=== PATIENT | male | born 1980 | race Two or more races ===

== ENCOUNTER 2020-07-17 12:04 | Outpatient (REF) | payer OTHER, SELFPAY ==
[2020-07-17 13:17] LABS: Estimated Average Glucose 346 mg/dL; Hemoglobin A1c % 13.7 %
[2020-07-17 13:36] LABS: Alanine Aminotransferase 22 U/L (0-40); Albumin Level 4.1 g/dL (3.5-5.0); Alkaline Phosphatase 135 U/L (39-117); Anion Gap 14 (12-20); Aspartate Amino Transferase 20 U/L (5-37); Bilirubin Total 0.9 mg/dL (0.0-1.0); Blood Urea Nitrogen 14 mg/dL (9-16); Calcium 8.1 mg/dL (8.4-10.2); Carbon Dioxide 23 mmol/L (22-29); Chloride 103 mmol/L (96-108); Estimated Glomerular Filt Rate > 60; Glucose Random 256 mg/dL (60-115); Potassium 4.6 mmol/l (3.3-5.1); Sodium 135 mmol/L (135-145); Total Protein 6.3 g/dL (6.5-8.0)
== END 2020-07-17 12:05 | disposition home or self-care (01) ==
LOC: HO.LAB 12:04
PROVIDERS: Visit Provider Internal Medicine
DX: E11.22 Type 2 diabetes mellitus with diabetic chronic kidney disease (principal)
CPT/HCPCS: 80053; 83036

== ENCOUNTER 2020-09-04 11:03 | Outpatient (REF) | payer OTHER, SELFPAY ==
[2020-09-04 11:59] LABS: Alanine Aminotransferase 19 U/L (0-40); Albumin Level 4.2 g/dL (3.5-5.0); Alkaline Phosphatase 92 U/L (39-117); Anion Gap 12 (12-20); Aspartate Amino Transferase 20 U/L (5-37); Bilirubin Total 0.8 mg/dL (0.0-1.0); Blood Urea Nitrogen 10 mg/dL (9-16); Calcium 8.8 mg/dL (8.4-10.2); Carbon Dioxide 26 mmol/L (22-29); Chloride 106 mmol/L (96-108); Estimated Glomerular Filt Rate > 60; Glucose Random 132 mg/dL (60-115); Potassium 4.2 mmol/l (3.3-5.1); Sodium 140 mmol/L (135-145); Total Protein 6.6 g/dL (6.5-8.0)
[2020-09-04 12:02] LABS: Estimated Average Glucose 200 mg/dL; Hemoglobin A1c % 8.6 %
[2020-09-04 12:25] LABS: Free T4 (Free Thyroxine) 0.93 ng/dL (0.71-1.85); Thyroid Stimulating Hormone 1.93 uIU/mL (0.32-4.0)
[2020-09-04 12:26] LABS: Creatinine Urine 179.37 mg/dL; Microalbum/Creatinine Ratio Ur 588.7 ug/mg cr
== END 2020-09-04 11:04 | disposition home or self-care (01) ==
LOC: HO.LAB 11:03
PROVIDERS: PCP Internal Medicine; Visit Provider Internal Medicine
DX: E11.9 Type 2 diabetes mellitus without complications (principal); R63.5 Abnormal weight gain; Z90.5 Acquired absence of kidney
CPT/HCPCS: 80053; 82043; 83036; 84439; 84443

== ENCOUNTER 2020-11-06 12:19 | Outpatient (REF) | payer OTHER, SELFPAY ==
[2020-11-06 14:14] LABS: Alanine Aminotransferase 25 U/L (0-40); Albumin Level 4.3 g/dL (3.5-5.0); Alkaline Phosphatase 99 U/L (39-117); Anion Gap 12 (12-20); Aspartate Amino Transferase 22 U/L (5-37); Bilirubin Total 1.2 mg/dL (0.0-1.0); Blood Urea Nitrogen 13 mg/dL (9-16); Calcium 8.9 mg/dL (8.4-10.2); Carbon Dioxide 26 mmol/L (22-29); Chloride 107 mmol/L (96-108); Cholesterol 201 mg/dL; Estimated Glomerular Filt Rate > 60; Glucose Fasting 76 mg/dL (60-99); HDL Cholesterol 41 mg/dL; LDL Cholesterol Calculated 130 mg/dl; Potassium 4.5 mmol/L (3.3-5.1); Sodium 140 mmol/L (135-145); Total Protein 6.7 g/dL (6.5-8.0); Triglycerides 153 mg/dL
[2020-11-06 14:45] LABS: Estimated Average Glucose 128 mg/dL; Hemoglobin A1c % 6.1 %
== END 2020-11-06 12:20 | disposition home or self-care (01) ==
LOC: HO.LAB 12:19
PROVIDERS: PCP Internal Medicine; Visit Provider Internal Medicine
DX: E11.9 Type 2 diabetes mellitus without complications (principal)
CPT/HCPCS: 36415; 80053; 80061; 83036

== ENCOUNTER 2021-03-16 10:17 | Outpatient (REF) | payer OTHER, SELFPAY ==
--- NOTE | ~2021-03-16 | XR_ITS ---
EXAMINATION: XR FOOT, RIGHT CLINICAL INFORMATION: Right foot pain. Rule out stress fracture COMPARISON: None TECHNIQUE: AP, lateral, and oblique views of the right foot. FINDINGS: No fracture, dislocation, or joint effusion. No periostitis or erosions seen. There is enthesopathy of the distal Achilles tendon attachment. XR/XR foot RT min 3V IMPRESSION: No acute osseous abnormality. No sclerosis or periosteal reaction seen to suggest a site of stress fracture. There is enthesopathy of the distal Achilles tendon attachment.
[2021-03-16 11:03] LABS: MANUAL DIFF FLAG NO
[2021-03-16 11:11] LABS: Basophils Percent Auto 0.5 % (0-2); Eosinophils Absolute Auto 0.6 X10*3/uL (0.0-0.4); Eosinophils Percent Auto 6.2 % (0-4); Hematocrit 47.6 % (42-52); Hemoglobin 16.1 g/dl (14.0-18.0); Imm Gran Abs Auto 0.07 X10*3/uL (0.00-0.03); Imm Gran Pct Auto 0.8 % (0.0-0.4); Lymphocytes Absolute Auto 2.7 X10*3/uL (1.2-4.9); Lymphocytes Percent Auto 30.5 % (20-40); Mean Corpuscular HGB Conc 33.8 g/dl (31.0-36.0); Mean Corpuscular Hemoglobin 29.9 pg (27.0-33.0); Mean Corpuscular Volume 88.5 fL (80-98); Mean Platelet Volume 9.8 fL (9.4-12.4); Monocytes Absolute Auto 0.5 X10*3/uL (0.1-1.2); Platelet Count 246 X10*3/uL (160-400); Red Blood Count 5.38 X10*6/uL (4.60-5.80); Red Cell Distribution Width 13.2 % (11.0-16.0); White Blood Count 8.9 X10*3/uL (4.8-10.8)
[2021-03-16 11:22] LABS: Estimated Average Glucose 160 mg/dL; Hemoglobin A1c % 7.2 %
[2021-03-16 12:09] LABS: Creatinine Urine 168.56 mg/dL
[2021-03-16 12:12] LABS: Alanine Aminotransferase 62 U/L (0-40); Albumin Level 4.2 g/dL (3.5-5.0); Alkaline Phosphatase 129 U/L (39-117); Anion Gap 12 (12-20); Aspartate Amino Transferase 43 U/L (5-37); Bilirubin Total 1.2 mg/dL (0.0-1.0); Blood Urea Nitrogen 14 mg/dL (9-16); Calcium 9.2 mg/dL (8.4-10.2); Carbon Dioxide 25 mmol/L (22-29); Chloride 105 mmol/L (96-108); Estimated Glomerular Filt Rate > 60; Glucose Random 132 mg/dL (60-115); Potassium 4.4 mmol/L (3.3-5.1); Sodium 138 mmol/L (135-145); Total Protein 6.7 g/dL (6.5-8.0)
[2021-03-16 12:16] LABS: Thyroid Stimulating Hormone 1.63 uIU/mL (0.32-4.0)
[2021-03-16 12:22] LABS: Microalbum/Creatinine Ratio Ur 851.9 ug/mg cr
== END 2021-03-16 10:18 | disposition home or self-care (01) ==
LOC: HO.XRAY 10:17
PROVIDERS: PCP Internal Medicine; Visit Provider Internal Medicine
DX: M79.671 Pain in right foot (principal); E11.9 Type 2 diabetes mellitus without complications; R63.5 Abnormal weight gain
CPT/HCPCS: 36415; 73630; 80053; 82043; 83036; 84443; 85025

== ENCOUNTER 2021-03-30 07:28 | Outpatient (REF) | payer OTHER, SELFPAY ==
--- NOTE | ~2021-03-30 | XR_ITS ---
EXAMINATION: XR FOOT, RIGHT CLINICAL INFORMATION: Foot pain. COMPARISON: None TECHNIQUE: AP, lateral, and oblique views of the right foot. FINDINGS: The bones and soft tissues are unremarkable. There is minimal spurring at the insertion of the Achilles tendon on the posterior calcaneus. No fracture. Alignment is anatomic. Joint spaces are maintained. XR/XR foot RT min 3V IMPRESSION: Unremarkable right foot.
== END 2021-03-30 07:29 | disposition home or self-care (01) ==
LOC: HO.HOSX 07:28
PROVIDERS: Visit Provider Physician Assistant
DX: M72.2 Plantar fascial fibromatosis (principal); M79.673 Pain in unspecified foot
CPT/HCPCS: 73630

== ENCOUNTER 2021-06-05 12:17 | Outpatient (REF) | payer OTHER, SELFPAY ==
[2021-06-05 14:11] LABS: Estimated Average Glucose 206 mg/dL; Hemoglobin A1c % 8.8 %
[2021-06-05 14:20] LABS: Anion Gap 14 (12-20); Blood Urea Nitrogen 12 mg/dL (9-16); Calcium 9.3 mg/dL (8.4-10.2); Carbon Dioxide 26 mmol/L (22-29); Chloride 104 mmol/L (96-108); Estimated Glomerular Filt Rate > 60; Glucose Random 164 mg/dL (60-115); Potassium 4.8 mmol/L (3.3-5.1); Sodium 139 mmol/L (135-145)
== END 2021-06-05 12:18 | disposition home or self-care (01) ==
LOC: HO.10HDL 12:17
PROVIDERS: Visit Provider Internal Medicine
DX: E11.9 Type 2 diabetes mellitus without complications (principal)
CPT/HCPCS: 36415; 80048; 83036

== ENCOUNTER → 2021-08-02 08:56 | Outpatient (REF) | payer OTHER, SELFPAY | LOC: HO.SL 08:56 | PROVIDERS: PCP Internal Medicine; Visit Provider Internal Medicine | DX: G47.33 Obstructive sleep apnea (adult) (pediatric) (principal); R51.9 Headache, unspecified | CPT/HCPCS: 95806 ==

== ENCOUNTER 2021-09-03 11:47 | Outpatient (REF) | payer OTHER, SELFPAY ==
[2021-09-03 12:03] LABS: MANUAL DIFF FLAG NO
[2021-09-03 12:09] LABS: Basophils Absolute Auto 0.1 X10*3/uL (0.0-0.2); Basophils Percent Auto 0.6 % (0-2); Eosinophils Absolute Auto 0.3 X10*3/uL (0.0-0.4); Eosinophils Percent Auto 3.5 % (0-4); Hemoglobin 16.9 g/dl (14.0-18.0); Imm Gran Abs Auto 0.06 X10*3/uL (0.00-0.03); Imm Gran Pct Auto 0.7 % (0.0-0.4); Lymphocytes Absolute Auto 2.6 X10*3/uL (1.2-4.9); Lymphocytes Percent Auto 31.6 % (20-40); Mean Corpuscular HGB Conc 33.8 g/dl (31.0-36.0); Mean Corpuscular Hemoglobin 29.3 pg (27.0-33.0); Mean Corpuscular Volume 86.7 fL (80.0-98.0); Mean Platelet Volume 9.9 fL (9.4-12.4); Monocytes Absolute Auto 0.4 X10*3/uL (0.1-1.2); Monocytes Percent Auto 5.2 % (2-11); Neutrophils Absolute Auto 4.8 x10*3/uL (2.0-8.3); Neutrophils Percent Auto 58.4 % (45-73); Platelet Count 245 X10*3/uL (160-400); Red Blood Count 5.77 X10*6/uL (4.60-5.80); Red Cell Distribution Width 12.6 % (11.0-16.0); White Blood Count 8.3 X10*3/uL (4.8-10.8)
[2021-09-03 12:48] LABS: C Reactive Protein 1.55 mg/dL (< or = 0.50); Rheumatoid Factor < 15.0 IU/mL (<15.0)
[2021-09-03 12:59] LABS: Erythrocyte Sedimentation Rate 3 MM/HR (0-15)
[2021-09-05 20:31] LABS: Anti Nuclear Antibody Screen POSITIVE (NEGATIVE)
[2021-09-06 00:20] LABS: Cyclic Citrullinated Peptide <16 UNITS
== END 2021-09-03 11:48 | disposition home or self-care (01) ==
LOC: HO.LAB 11:47
PROVIDERS: PCP Internal Medicine; Visit Provider Physical Medicine & Rehabilitation Sports Medicine
DX: M25.561 Pain in right knee (principal)
CPT/HCPCS: 36415; 84550; 85025; 85652; 86038; 86039; 86140; 86200; 86431

== ENCOUNTER → 2021-09-18 14:51 | Outpatient (BNVA) | payer OTHER, SELFPAY | PROVIDERS: PCP Internal Medicine; Visit Provider Internal Medicine ==

== ENCOUNTER 2021-10-18 09:50 | Outpatient (REF) | payer OTHER, SELFPAY ==
[2021-10-18 10:10] LABS: MANUAL DIFF FLAG NO
[2021-10-18 10:43] LABS: Basophils Absolute Auto 0.1 X10*3/uL (0.0-0.2); Basophils Percent Auto 0.5 % (0-2); Eosinophils Absolute Auto 0.2 X10*3/uL (0.0-0.4); Eosinophils Percent Auto 2.2 % (0-4); Hematocrit 50.5 % (42.0-52.0); Hemoglobin 16.4 g/dl (14.0-18.0); Imm Gran Abs Auto 0.09 X10*3/uL (0.00-0.03); Lymphocytes Absolute Auto 2.8 X10*3/uL (1.2-4.9); Lymphocytes Percent Auto 30.1 % (20-40); Mean Corpuscular HGB Conc 32.5 g/dl (31.0-36.0); Mean Corpuscular Hemoglobin 28.9 pg (27.0-33.0); Mean Corpuscular Volume 89.1 fL (80.0-98.0); Mean Platelet Volume 9.6 fL (9.4-12.4); Monocytes Absolute Auto 0.6 X10*3/uL (0.1-1.2); Monocytes Percent Auto 6.1 % (2-11); Neutrophils Absolute Auto 5.6 x10*3/uL (2.0-8.3); Neutrophils Percent Auto 60.1 % (45-73); Platelet Count 243 X10*3/uL (160-400); Red Blood Count 5.67 X10*6/uL (4.60-5.80); Red Cell Distribution Width 12.7 % (11.0-16.0); White Blood Count 9.3 X10*3/uL (4.8-10.8)
[2021-10-18 10:48] LABS: Estimated Average Glucose 324 mg/dL; Hemoglobin A1c % 12.9 %
[2021-10-18 11:02] LABS: Alanine Aminotransferase 25 U/L (0-40); Alkaline Phosphatase 181 U/L (39-117); Anion Gap 11 (12-20); Aspartate Amino Transferase 17 U/L (5-37); Bilirubin Total 0.9 mg/dL (0.0-1.0); Blood Urea Nitrogen 13 mg/dL (9-16); Calcium 9.3 mg/dL (8.4-10.2); Carbon Dioxide 29 mmol/L (22-29); Chloride 103 mmol/L (96-108); Cholesterol 233 mg/dL; Estimated Glomerular Filt Rate 53; Glucose Fasting 261 mg/dL (60-99); HDL Cholesterol 38 mg/dL; LDL Cholesterol Calculated 153 mg/dl; Potassium 4.6 mmol/L (3.3-5.1); Sodium 138 mmol/L (135-145); Total Protein 6.6 g/dL (6.5-8.0); Triglycerides 210 mg/dL
[2021-10-18 12:30] LABS: Creatinine Urine 241.33 mg/dL
== END 2021-10-18 09:51 | disposition home or self-care (01) ==
LOC: HO.LAB 09:50
PROVIDERS: PCP Internal Medicine; Visit Provider Internal Medicine
DX: E11.9 Type 2 diabetes mellitus without complications (principal); E78.5 Hyperlipidemia, unspecified
CPT/HCPCS: 36415; 80053; 80061; 82043; 83036; 85025

== ENCOUNTER 2021-11-30 11:02 | Outpatient (REF) | payer OTHER, SELFPAY ==
[2021-11-30 11:54] LABS: Estimated Average Glucose 237 mg/dL; Hemoglobin A1c % 9.9 %
[2021-11-30 12:11] LABS: Anion Gap 12 (12-20); Blood Urea Nitrogen 10 mg/dL (9-16); Calcium 9.3 mg/dL (8.4-10.2); Carbon Dioxide 25 mmol/L (22-29); Chloride 105 mmol/L (96-108); Estimated Glomerular Filt Rate > 60; Glucose Random 137 mg/dL (60-115); Potassium 4.4 mmol/L (3.3-5.1); Sodium 138 mmol/L (135-145)
[2021-11-30 12:59] LABS: Creatinine Urine 310.65 mg/dL
[2021-11-30 13:44] LABS: Microalbum/Creatinine Ratio Ur 1145.9 ug/mg cr
== END 2021-11-30 11:03 | disposition home or self-care (01) ==
LOC: HO.LAB 11:02
PROVIDERS: PCP Internal Medicine; Visit Provider Internal Medicine
DX: E11.22 Type 2 diabetes mellitus with diabetic chronic kidney disease (principal); N18.9 Chronic kidney disease, unspecified
CPT/HCPCS: 36415; 80048; 82043; 83036

== ENCOUNTER → 2022-02-04 12:45 | Outpatient (BNVA) | payer OTHER, SELFPAY | PROVIDERS: PCP Internal Medicine; Visit Provider Internal Medicine | DX: E66.9 Obesity, unspecified (principal) ==

== ENCOUNTER 2022-02-20 09:38 | Outpatient (REF) | payer OTHER, SELFPAY ==
[2022-02-20 10:27] LABS: Estimated Average Glucose 177 mg/dL; Hemoglobin A1c % 7.8 %
[2022-02-20 10:36] LABS: Alanine Aminotransferase 41 U/L (0-40); Albumin Level 4.3 g/dL (3.5-5.0); Alkaline Phosphatase 112 U/L (39-117); Anion Gap 13 (12-20); Aspartate Amino Transferase 26 U/L (5-37); Bilirubin Total 1.1 mg/dL (0.0-1.0); Blood Urea Nitrogen 13 mg/dL (9-16); Carbon Dioxide 22 mmol/L (22-29); Chloride 106 mmol/L (96-108); Estimated Glomerular Filt Rate > 60; Glucose Random 135 mg/dL (60-115); Potassium 4.3 mmol/L (3.3-5.1); Sodium 137 mmol/L (135-145); Total Protein 6.9 g/dL (6.5-8.0)
[2022-02-20 10:53] LABS: Appearance Urine CLEAR; Color Urine YELLOW; Glucose Urine UA >=1000 MG/DL (NEG); Leukocyte Esterase Urine NEG (NEG); Nitrite Urine NEG (NEG); PH 5.5 (5.0-8.0); Specific Gravity - Urine 1.025 (1.005-1.025); Urine Blood NEG (NEG); Urine Ketones NEG (NEG); Urine Protein 2+ MG/DL (NEG-TRACE)
[2022-02-20 11:08] LABS: WBC Urine 0-2 /HPF (0-4)
[2022-02-20 11:09] LABS: Squamous Epithelial Cell Urine TRACE /LPF
[2022-02-20 11:25] LABS: Creatinine Urine 126.62 mg/dL; Protein/Creatinine Ratio, Ur 0.94 (<0.2); Total Protein Urine Random 119 mg/dL (<12)
[2022-02-20 11:26] LABS: Creatinine Urine 125.91 mg/dL
[2022-02-20 11:48] LABS: Microalbum/Creatinine Ratio Ur 638.5 ug/mg cr
== END 2022-02-20 09:39 | disposition home or self-care (01) ==
LOC: HO.LAB 09:38
PROVIDERS: Absent Provider Internal Medicine Nephrology; PCP Internal Medicine; Visit Provider Internal Medicine
DX: E11.22 Type 2 diabetes mellitus with diabetic chronic kidney disease (principal); R80.1 Persistent proteinuria, unspecified; I10 Essential (primary) hypertension
CPT/HCPCS: 36415; 80053; 81001; 82043; 83036; 84156

== ENCOUNTER 2022-06-04 12:40 | Outpatient (REF) | payer OTHER, SELFPAY ==
[2022-06-04 13:04] LABS: MANUAL DIFF FLAG NO
[2022-06-04 13:47] LABS: Basophils Absolute Auto 0.1 X10*3/uL (0.0-0.2); Basophils Percent Auto 0.6 % (0-2); Eosinophils Absolute Auto 0.3 X10*3/uL (0.0-0.4); Eosinophils Percent Auto 3.7 % (0-4); Imm Gran Abs Auto 0.06 X10*3/uL (0.00-0.03); Imm Gran Pct Auto 0.8 % (0.0-0.4); Lymphocytes Absolute Auto 2.2 X10*3/uL (1.2-4.9); Mean Corpuscular HGB Conc 32.7 g/dl (31.0-36.0); Mean Corpuscular Hemoglobin 28.5 pg (27.0-33.0); Mean Corpuscular Volume 87.1 fL (80.0-98.0); Mean Platelet Volume 9.8 fL (9.4-12.4); Monocytes Absolute Auto 0.4 X10*3/uL (0.1-1.2); Monocytes Percent Auto 5.1 % (2-11); Neutrophils Absolute Auto 4.8 x10*3/uL (2.0-8.3); Neutrophils Percent Auto 61.8 % (45-73); Platelet Count 244 X10*3/uL (160-400); Red Blood Count 5.97 X10*6/uL (4.60-5.80); Red Cell Distribution Width 13.4 % (11.0-16.0); White Blood Count 7.8 X10*3/uL (4.8-10.8)
[2022-06-04 13:59] LABS: Estimated Average Glucose 180 mg/dL; Hemoglobin A1c % 7.9 %
[2022-06-04 14:24] LABS: Alanine Aminotransferase 44 U/L (0-40); Albumin Level 4.7 g/dL (3.5-5.0); Alkaline Phosphatase 138 U/L (39-117); Anion Gap 16 (12-20); Aspartate Amino Transferase 25 U/L (5-37); Bilirubin Total 1.2 mg/dL (0.0-1.0); Blood Urea Nitrogen 15 mg/dL (9-16); Calcium 9.4 mg/dL (8.4-10.2); Carbon Dioxide 26 mmol/L (22-29); Chloride 102 mmol/L (96-108); Cholesterol 211 mg/dL; Estimated Glomerular Filt Rate 58; Glucose Random 144 mg/dL (60-115); HDL Cholesterol 35 mg/dL; LDL Cholesterol Calculated 139 mg/dl; Potassium 4.7 mmol/L (3.3-5.1); Sodium 139 mmol/L (135-145); Total Protein 7.3 g/dL (6.5-8.0); Triglycerides 188 mg/dL
[2022-06-04 16:46] LABS: Creatinine Urine 146.64 mg/dL
== END 2022-06-04 12:41 | disposition home or self-care (01) ==
LOC: HO.LAB 12:40
PROVIDERS: PCP Internal Medicine; Visit Provider Internal Medicine
DX: E11.9 Type 2 diabetes mellitus without complications (principal); I10 Essential (primary) hypertension; K21.9 Gastro-esophageal reflux disease without esophagitis; Z79.4 Long term (current) use of insulin
CPT/HCPCS: 36415; 80053; 80061; 82043; 83036; 85025

== ENCOUNTER 2022-08-13 08:52 | Outpatient (REF) | payer OTHER, SELFPAY ==
[2022-08-13 09:19] LABS: MANUAL DIFF FLAG NO
[2022-08-13 10:08] LABS: Appearance Urine Clear; Color Urine Yellow; Glucose Urine UA >=1000 mg/dL (Negative); Leukocyte Esterase Urine Negative (Negative); Nitrite Urine Negative (Negative); Specific Gravity - Urine >= 1.030 (1.005-1.025); UMIC TRIGGER UA YES; Urine Blood Negative (Negative); Urine Ketones Negative (Negative); Urine Protein 100 (2+) mg/dL (Neg-Trace)
[2022-08-13 10:11] LABS: Bacteria Urine None Seen (None Seen); Basophils Absolute Auto 0.1 X10*3/uL (0.0-0.2); Basophils Percent Auto 0.5 % (0-2); Eosinophils Absolute Auto 0.3 X10*3/uL (0.0-0.4); Eosinophils Percent Auto 2.8 % (0-4); Hematocrit 52.8 % (42.0-52.0); Hemoglobin 17.1 g/dl (14.0-18.0); Hyaline Casts Urine 0-2 /LPF (0-2); Imm Gran Abs Auto 0.06 X10*3/uL (0.00-0.03); Imm Gran Pct Auto 0.6 % (0.0-0.4); Lymphocytes Absolute Auto 2.8 X10*3/uL (1.2-4.9); Lymphocytes Percent Auto 29.6 % (20-40); Mean Corpuscular HGB Conc 32.4 g/dl (31.0-36.0); Mean Corpuscular Hemoglobin 28.6 pg (27.0-33.0); Mean Corpuscular Volume 88.4 fL (80.0-98.0); Mean Platelet Volume 9.6 fL (9.4-12.4); Monocytes Absolute Auto 0.5 X10*3/uL (0.1-1.2); Monocytes Percent Auto 5.6 % (2-11); Neutrophils Absolute Auto 5.7 x10*3/uL (2.0-8.3); Neutrophils Percent Auto 60.9 % (45-73); Platelet Count 256 X10*3/uL (160-400); RBC Urine 0-2 /HPF (0-2); Red Blood Count 5.97 X10*6/uL (4.60-5.80); Red Cell Distribution Width 13.5 % (11.0-16.0); Squamous Epithelial Cell Urine 0-2 /HPF (0-2); WBC Urine 0-5 /HPF (0-5); White Blood Count 9.4 X10*3/uL (4.8-10.8)
[2022-08-13 10:49] LABS: Creatinine Urine 97.39 mg/dL; Protein/Creatinine Ratio, Ur 1.01 (<0.2); Total Protein Urine Random 98 mg/dL (<12)
[2022-08-13 11:03] LABS: Microalbum/Creatinine Ratio Ur 732.1 ug/mg cr
[2022-08-13 11:48] LABS: Alanine Aminotransferase 44 U/L (0-40); Albumin Level 4.6 g/dL (3.5-5.0); Alkaline Phosphatase 151 U/L (39-117); Anion Gap 16 (12-20); Aspartate Amino Transferase 27 U/L (5-37); Bilirubin Total 1.3 mg/dL (0.0-1.0); Blood Urea Nitrogen 16 mg/dL (9-16); Calcium 9.5 mg/dL (8.4-10.2); Carbon Dioxide 24 mmol/L (22-29); Chloride 103 mmol/L (96-108); Cholesterol 151 mg/dL; Estimated Glomerular Filt Rate 56; Glucose Fasting 158 mg/dL (60-99); HDL Cholesterol 32 mg/dL; LDL Cholesterol Calculated 62 mg/dl; Potassium 4.2 mmol/L (3.3-5.1); Sodium 139 mmol/L (135-145); Total Protein 7.2 g/dL (6.5-8.0); Triglycerides 286 mg/dL
[2022-08-13 13:10] LABS: Estimated Average Glucose 174 mg/dL; Hemoglobin A1c % 7.7 %
== END 2022-08-13 08:53 | disposition home or self-care (01) ==
LOC: HO.LAB 08:52
PROVIDERS: Absent Provider Internal Medicine Nephrology; PCP Internal Medicine; Visit Provider Internal Medicine
DX: N18.9 Chronic kidney disease, unspecified (principal); E78.00 Pure hypercholesterolemia, unspecified; E11.9 Type 2 diabetes mellitus without complications
CPT/HCPCS: 36415; 80053; 80061; 81001; 82043; 83036; 84156; 85025

== ENCOUNTER 2022-11-05 06:57 | Outpatient (REF) | payer OTHER, SELFPAY ==
[2022-11-05 08:17] LABS: Estimated Average Glucose 174 mg/dL; Hemoglobin A1c % 7.7 %
[2022-11-05 08:35] LABS: Alanine Aminotransferase 54 U/L (0-40); Albumin Level 4.2 g/dL (3.5-5.0); Alkaline Phosphatase 140 U/L (39-117); Anion Gap 13 (12-20); Aspartate Amino Transferase 25 U/L (5-37); Blood Urea Nitrogen 16 mg/dL (9-16); Calcium 9.2 mg/dL (8.4-10.2); Carbon Dioxide 25 mmol/L (22-29); Chloride 104 mmol/L (96-108); Estimated Glomerular Filt Rate 55; Glucose Random 193 mg/dL (60-115); Potassium 4.1 mmol/L (3.3-5.1); Sodium 138 mmol/L (135-145); Total Protein 6.6 g/dL (6.5-8.0)
[2022-11-05 08:36] LABS: Creatinine Urine 104.23 mg/dL
[2022-11-05 08:48] LABS: Microalbum/Creatinine Ratio Ur 575.6 ug/mg cr
== END 2022-11-05 06:58 | disposition home or self-care (01) ==
LOC: HO.LAB 06:57
PROVIDERS: PCP Internal Medicine; Visit Provider Internal Medicine
DX: I12.9 Hypertensive chronic kidney disease with stage 1 through stage 4 chronic kidney disease, or unspecified chronic kidney disease (principal); E11.22 Type 2 diabetes mellitus with diabetic chronic kidney disease; N18.9 Chronic kidney disease, unspecified
CPT/HCPCS: 36415; 80053; 82043; 83036

== ENCOUNTER → 2023-01-28 14:47 | Outpatient (BNVA) | payer OTHER, SELFPAY | PROVIDERS: PCP Internal Medicine; Visit Provider Internal Medicine ==

== ENCOUNTER 2023-02-18 07:29 | Outpatient (REF) | payer OTHER, SELFPAY ==
--- NOTE | ~2023-02-18 | XR_ITS ---
EXAMINATION: XR BILATERAL KNEES CLINICAL INFORMATION: Reason for Exam M25.569 - Pain in unspecified knee COMPARISON: None TECHNIQUE: 1 views of the bilateral knees standing and 2 views of the right knee FINDINGS: RIGHT KNEE: No acute fracture or dislocation. Minimal degenerative changes of the knee with small patellofemoral compartment osteophytes. Joint spaces are maintained. No joint effusion. Soft tissues are unremarkable. LEFT KNEE: No acute fracture or dislocation appreciated on this limited single view. Joint spaces are maintained. Soft tissues are unremarkable. XR/XR knee standing BI IMPRESSION: * No acute osseous abnormality. * Minimal degenerative changes of the right knee.
--- NOTE | ~2023-02-18 | XR_ITS ---
EXAMINATION: XR BILATERAL KNEES CLINICAL INFORMATION: Reason for Exam M25.569 - Pain in unspecified knee COMPARISON: None TECHNIQUE: 1 views of the bilateral knees standing and 2 views of the right knee FINDINGS: RIGHT KNEE: No acute fracture or dislocation. Minimal degenerative changes of the knee with small patellofemoral compartment osteophytes. Joint spaces are maintained. No joint effusion. Soft tissues are unremarkable. LEFT KNEE: No acute fracture or dislocation appreciated on this limited single view. Joint spaces are maintained. Soft tissues are unremarkable. XR/XR knee RT 2V IMPRESSION: * No acute osseous abnormality. * Minimal degenerative changes of the right knee.
== END 2023-02-18 07:30 | disposition home or self-care (01) ==
LOC: HO.HOSX 07:29
PROVIDERS: Visit Provider Physician Assistant
DX: S83.206A Unspecified tear of unspecified meniscus, current injury, right knee, initial encounter (principal); X58.XXXA Exposure to other specified factors, initial encounter; Y93.9 Activity, unspecified; Y92.9 Unspecified place or not applicable; Y99.9 Unspecified external cause status
CPT/HCPCS: 73560; 73565

== ENCOUNTER 2023-02-27 10:25 | Outpatient (REF) | payer OTHER, SELFPAY ==
[2023-02-27 10:36] LABS: MANUAL DIFF FLAG NO
[2023-02-27 11:06] LABS: Basophils Absolute Auto 0.1 X10*3/uL (0.0-0.2); Basophils Percent Auto 0.7 % (0-2); Eosinophils Absolute Auto 0.4 X10*3/uL (0.0-0.4); Eosinophils Percent Auto 4.3 % (0-4); Hematocrit 48.2 % (42.0-52.0); Hemoglobin 15.9 g/dl (14.0-18.0); Imm Gran Abs Auto 0.09 X10*3/uL (0.00-0.03); Lymphocytes Percent Auto 33.1 % (20-40); Mean Corpuscular Hemoglobin 28.9 pg (27.0-33.0); Mean Corpuscular Volume 87.5 fL (80.0-98.0); Mean Platelet Volume 9.4 fL (9.4-12.4); Monocytes Absolute Auto 0.5 X10*3/uL (0.1-1.2); Monocytes Percent Auto 5.4 % (2-11); Neutrophils Percent Auto 55.5 % (45-73); Platelet Count 273 X10*3/uL (160-400); Red Blood Count 5.51 X10*6/uL (4.60-5.80); Red Cell Distribution Width 13.3 % (11.0-16.0); White Blood Count 8.9 X10*3/uL (4.8-10.8)
[2023-02-27 11:31] LABS: Estimated Average Glucose 180 mg/dL; Hemoglobin A1c % 7.9 %
[2023-02-27 11:42] LABS: Alanine Aminotransferase 37 U/L (0-40); Albumin Level 4.2 g/dL (3.5-5.0); Alkaline Phosphatase 134 U/L (39-117); Anion Gap 16 (12-20); Aspartate Amino Transferase 24 U/L (5-37); Bilirubin Total 1.1 mg/dL (0.0-1.0); Blood Urea Nitrogen 13 mg/dL (9-16); Calcium 9.1 mg/dL (8.4-10.2); Carbon Dioxide 22 mmol/L (22-29); Chloride 104 mmol/L (96-108); Estimated Glomerular Filt Rate > 60; Glucose Random 112 mg/dL (60-115); Potassium 4.2 mmol/L (3.3-5.1); Sodium 138 mmol/L (135-145)
[2023-02-27 12:03] LABS: Creatinine Urine 137.97 mg/dL
== END 2023-02-27 10:26 | disposition home or self-care (01) ==
LOC: HO.LAB 10:25
PROVIDERS: PCP Internal Medicine; Visit Provider Internal Medicine
DX: I12.9 Hypertensive chronic kidney disease with stage 1 through stage 4 chronic kidney disease, or unspecified chronic kidney disease (principal); E11.22 Type 2 diabetes mellitus with diabetic chronic kidney disease; N18.9 Chronic kidney disease, unspecified
CPT/HCPCS: 36415; 80053; 82043; 83036; 85025

== ENCOUNTER 2023-03-04 18:45 | Outpatient (REF) | payer OTHER, SELFPAY ==
--- NOTE | ~2023-03-04 | MR_ITS ---
EXAMINATION: MR KNEE WITHOUT CONTRAST, RIGHT CLINICAL INFORMATION: Right knee pain and swelling. Medial knee pain. COMPARISON: Right knee radiographs dated 02/18/2023. TECHNIQUE: MRI of the knee without contrast was performed using routine sequences on a high-field scanner. FINDINGS: MENISCI: MEDIAL MENISCUS: Nondisplaced oblique inner margin/tibial articular surface tear of the meniscal body and posterior horn with inner margin fraying/tearing extending through the posterior root. LATERAL MENISCUS: Intact. LIGAMENTS: CRUCIATE: Intact. COLLATERAL: Intact. EXTENSOR MECHANISM: Intact. ARTICULAR CARTILAGE/BONE: PATELLOFEMORAL COMPARTMENT: Intact articular cartilage. MEDIAL COMPARTMENT: Intact articular cartilage. Marrow edema within the medial tibial plateau consistent with an osseous contusion. LATERAL COMPARTMENT: Intact articular cartilage. JOINT FLUID AND BURSAE: Small effusion and trace Montesinos's cyst. MR/MR knee RT wo con IMPRESSION: 1. Nondisplaced oblique inner margin/tibial articular surface tear of the medial meniscal body and posterior horn with inner margin fraying/tearing extending through the posterior root. 2. Osseous contusion within the medial tibial plateau. 3. Small joint effusion and trace Montesinos's cyst.
== END 2023-03-04 18:46 | disposition home or self-care (01) ==
LOC: HO.MRI 18:45
PROVIDERS: PCP Internal Medicine; Visit Provider Physician Assistant
DX: S83.206A Unspecified tear of unspecified meniscus, current injury, right knee, initial encounter (principal); T14.90XA Injury, unspecified, initial encounter; X58.XXXA Exposure to other specified factors, initial encounter; Y93.9 Activity, unspecified; Y92.9 Unspecified place or not applicable; Y99.9 Unspecified external cause status
CPT/HCPCS: 73721

== ENCOUNTER → 2023-03-20 10:24 | Outpatient (BNVA) | payer OTHER, SELFPAY | PROVIDERS: PCP Internal Medicine; Visit Provider Orthopaedic Surgery ==

== ENCOUNTER 2023-04-14 10:43 | Outpatient (REF) | payer OTHER, SELFPAY ==
[2023-04-14 10:55] LABS: MANUAL DIFF FLAG NO
[2023-04-14 11:49] LABS: Basophils Absolute Auto 0.1 X10*3/uL (0.0-0.2); Basophils Percent Auto 0.7 % (0-2); Eosinophils Absolute Auto 0.6 X10*3/uL (0.0-0.4); Eosinophils Percent Auto 5.8 % (0-4); Hematocrit 53.9 % (42.0-52.0); Hemoglobin 17.3 g/dl (14.0-18.0); Imm Gran Abs Auto 0.08 X10*3/uL (0.00-0.03); Imm Gran Pct Auto 0.8 % (0.0-0.4); Lymphocytes Absolute Auto 3.3 X10*3/uL (1.2-4.9); Lymphocytes Percent Auto 33.3 % (20-40); Mean Corpuscular HGB Conc 32.1 g/dl (31.0-36.0); Mean Corpuscular Hemoglobin 28.5 pg (27.0-33.0); Mean Corpuscular Volume 88.9 fL (80.0-98.0); Mean Platelet Volume 9.6 fL (9.4-12.4); Monocytes Absolute Auto 0.6 X10*3/uL (0.1-1.2); Monocytes Percent Auto 6.4 % (2-11); Neutrophils Absolute Auto 5.2 x10*3/uL (2.0-8.3); Platelet Count 238 X10*3/uL (160-400); Red Blood Count 6.06 X10*6/uL (4.60-5.80); Red Cell Distribution Width 13.5 % (11.0-16.0); White Blood Count 9.8 X10*3/uL (4.8-10.8)
[2023-04-14 11:54] LABS: Estimated Average Glucose 174 mg/dL; Hemoglobin A1c % 7.7 %
[2023-04-14 12:53] LABS: Anion Gap 17 (12-20); Blood Urea Nitrogen 15 mg/dL (9-16); Calcium 9.7 mg/dL (8.4-10.2); Carbon Dioxide 21 mmol/L (22-29); Chloride 106 mmol/L (96-108); Estimated Glomerular Filt Rate 57; Glucose Random 160 mg/dL (60-115); Potassium 4.1 mmol/L (3.3-5.1); Sodium 140 mmol/L (135-145)
== END 2023-04-14 10:44 | disposition home or self-care (01) ==
LOC: HO.LAB 10:43
PROVIDERS: PCP Internal Medicine; Visit Provider Internal Medicine
DX: E11.9 Type 2 diabetes mellitus without complications (principal); I10 Essential (primary) hypertension; K21.9 Gastro-esophageal reflux disease without esophagitis
CPT/HCPCS: 36415; 80048; 83036; 85025

== ENCOUNTER 2023-04-21 13:58 | Outpatient (AMB) | payer OTHER, SELFPAY ==
--- NOTE | 2023-04-21 14:08 | MHC.OFFVIS ---
Intake Vital Signs 04/21/23 14:15 Height 5 ft 7 in Weight 238 lb BMI 37.3 Intake Visit Reasons: Pre-Op RT knee 04/30/23NE Intake Note: Aravind a 42 year old male who presents today for a preoperative right knee on 04/30/23 NE. Pain management agreement reviewed and signed. Allergies No Known Allergies Allergy (Verified 04/21/23 14:15) HPI HPI Comments History of Present Illness Details Mr Bautista presents to the office today for preop visit. He is scheduled for right total knee arthroscopy with Dr. Dorantes. He continues to have ongoing pain and difficulty with ambulation in the right knee, which is affecting his quality of life; therefore, he has elected to move forward with surgery. 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 Review of Systems Const All systems reviewed & are unremarkable except as noted in HPI and below Physical Exam Vital Signs: BMI result Body Mass Index 37.3 Const General: cooperative and no acute distress Orientation/consciousness: patient oriented x3 HEENT Head: Yes normal to inspection, Yes normocephalic and Yes atraumatic Eyes General: appearance normal, both eyes and all related structures Neck Neck: Yes normal visual inspection and Yes no lymphadenopathy Resp Effort & Inspection: normal respiratory effort and able to speak in complete sentences Cardio Rate: regular rate Peripheral pulses: Peripheral pulses 2+ throughout GI Inspection: Yes normal to inspection Palpation (GI): Soft to palpation Skin General skin exam: no rashes or lesions noted Neuro General: patient oriented x3 Extrem Other: Right knee: Normal to inspection. No open wound or abrasion. He does have medial sided tenderness. Positive Genie?s. Calf supple, nontender. NVI. Psych Appearance: grossly normal Mental Status: mental status grossly normal Assessment & Plan Assessment & Plan (1) Right knee meniscal tear: Code(s): S83.206A - Unspecified tear of unspecified meniscus, current injury, right knee, initial encounter Plan: I discussed the extent of the injury to the patient and options available which include surgical intervention. I explained the procedure in detail along with the length of recovery and rehab course. I explained the risk, benefits and alternatives. Risk including, but not limited to infection, blood clots, bleeding, ongoing pain and stiffness. I answered all their questions and with their understanding they have consented to move forward with Right knee arthroscopy with Dr Dorantes. The patient will be booked accordingly. Patient Instructions: Scribed for Edin Montgomery PA-C, by Rachid Walters medical information specialist, on 04/21/2023 at 2:15 PM PATRIZIA. Edin Anderson PA-C, have personally reviewed and agree with the information entered by the scribe. Coding Level of Care Code Est Pt Level 3 (28663) Diagnoses Right knee meniscal tear S83.206A
[2023-04-21 14:15] VITALS: BMI 37.3
== END 2023-04-21 15:00 | disposition home or self-care (01) ==
PROVIDERS: PCP Internal Medicine; Visit Provider Physician Assistant
DX: S83.231A Complex tear of medial meniscus, current injury, right knee, initial encounter (principal)
CPT/HCPCS: 99024

== ENCOUNTER → 2023-04-21 13:58 | Outpatient (BNVA) | payer OTHER, SELFPAY | PROVIDERS: PCP Internal Medicine; Visit Provider Physician Assistant ==

== ENCOUNTER 2023-04-30 06:56 | Day surgery (SDC) | payer OTHER, SELFPAY ==
[2023-04-25 15:25] VITALS: BMI 37.3
--- NOTE | 2023-04-29 08:41 | HO.ANESPROP2 ---
Documented by User: Betsy Howell NP 04/29/23 08:43 HPI - Anesthesia Eval Consult details Narrative: 42yo M for Right Knee Arthroscopy Follows pulmo for CAITY. Last seen 01/2023. Stable with CPAP compliance PMFSH Active Problems Active Problems: All Active Problems (Updated 02/18/23 @ 09:58 by Lynne Sue PA-C) Right knee meniscal tear (Acute) CAITY (obstructive sleep apnea) (Acute) Obesity (Acute) Plantar fasciitis of right foot (Acute) Foot pain (Acute) Past Medical History Medical History Diabetes Diabetic acidosis, type II Elevated cholesterol GERD (gastroesophageal reflux disease) HTN (hypertension) Obesity CAITY (obstructive sleep apnea) Surgical History Surgical History Hx of kidney donation Social History Social History Patient Tobacco Use Status: Current someday Tobacco user Tobacco use type: Cigarette Use of substances other than those prescribed or required for medical reasons: No Are you DNR?: No Advance Directives: No Advance Directives Information Provided: Yes Current occupational status: employed 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 Meds Allergies Allergy/AdvReac Type Severity Reaction Status Date / Time No Known Allergies Allergy Verified 04/30/23 07:11 Home Medications Medication Instructions Recorded Confirmed Last Taken Type glipizide 10 mg tablet 10 mg PO BID 09/18/21 04/30/23 04/30/23 06:10 History omeprazole 20 mg tablet,delayed 20 mg PO DAILY PRN Heartburn 09/18/21 04/30/23 Unknown History release dapagliflozin propanediol 10 mg 10 mg PO DAILY 02/04/22 04/30/23 04/30/23 06:10 History tablet (Farxiga) atorvastatin 10 mg tablet (Lipitor) 10 mg PO BEDTIME 07/24/22 04/30/23 04/30/23 06:10 History lisinopril 10 mg tablet (Zestril) 20 mg PO DAILY 07/24/22 04/30/23 04/30/23 06:10 History finerenone 10 mg tablet (Kerendia) 10 mg PO DAILY 01/28/23 04/30/23 04/30/23 06:10 History dulaglutide 0.75 mg/0.5 mL 0.75 mg subcut QWEEK 04/21/23 04/30/23 Unknown History subcutaneous pen injector (Trulicity) insulin glargine-yfgn 100 unit/mL 38 unit subcut BID 04/21/23 04/30/23 Unknown History (3 mL) subcutaneous pen (Semglee (insulin glargine-yfgn) Pen) Exam Exam Date and Time: April 29, 2023 0841 Height,Weight and Vital Signs: Height 5 ft 7 in Weight 107.955 kg Pertinent Lab Results Pertinent Lab Results: Laboratory Tests 04/14/23 04/14/23 10:54 10:54 WBC 9.8 Hgb 17.3 Hct 53.9 H Plt Count 238 Sodium 140 Potassium 4.1 Chloride 106 Carbon Dioxide 21 L BUN 15 Creatinine 1.37 Assessment and Plan Assessment Anesthesia Assessment: Chart Reviewed Documented by User: Mini Connell MD 04/30/23 08:50 PMFSH Past Medical History Medical History Diabetes Diabetic acidosis, type II Elevated cholesterol GERD (gastroesophageal reflux disease) HTN (hypertension) Obesity CAITY (obstructive sleep apnea) Family History Family history of problems with anesthesia: No Surgical History Surgical History Hx of kidney donation History of Problems with Anesthesia: No Social History Social History Patient Tobacco Use Status: Current someday Tobacco user Tobacco use type: Cigarette Use of substances other than those prescribed or required for medical reasons: No Are you DNR?: No Advance Directives: No Advance Directives Information Provided: Yes Current occupational status: employed 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 Meds Allergies Allergy/AdvReac Type Severity Reaction Status Date / Time No Known Allergies Allergy Verified 04/30/23 07:11 Home Medications Medication Instructions Recorded Confirmed Last Taken Type glipizide 10 mg tablet 10 mg PO BID 09/18/21 04/30/23 04/30/23 06:10 History omeprazole 20 mg tablet,delayed 20 mg PO DAILY PRN Heartburn 09/18/21 04/30/23 Unknown History release dapagliflozin propanediol 10 mg 10 mg PO DAILY 02/04/22 04/30/23 04/30/23 06:10 History tablet (Farxiga) atorvastatin 10 mg tablet (Lipitor) 10 mg PO BEDTIME 07/24/22 04/30/23 04/30/23 06:10 History lisinopril 10 mg tablet (Zestril) 20 mg PO DAILY 07/24/22 04/30/23 04/30/23 06:10 History finerenone 10 mg tablet (Kerendia) 10 mg PO DAILY 01/28/23 04/30/23 04/30/23 06:10 History dulaglutide 0.75 mg/0.5 mL 0.75 mg subcut QWEEK 04/21/23 04/30/23 Unknown History subcutaneous pen injector (Trulicity) insulin glargine-yfgn 100 unit/mL 38 unit subcut BID 04/21/23 04/30/23 Unknown History (3 mL) subcutaneous pen (Semglee (insulin glargine-yfgn) Pen) Exam Airway Mallampati Class: II Neck ROM: Full Heart: rrr Lungs: cta Assessment and Plan Assessment Anesthesia Assessment: Anesthesia Plan Discussed Final Anesthetic Review Family History of Problems with Anesthesia: No History of Problems with Anesthesia: No NPO: Yes ASA Class: II Final Preanesthetic Review: No Changes in Pt Med Stat, Meds/Allgs Chart Reviewed, Consent Obtained/Reviewed and Anes Risks/Benef Reviewed Patient Risk: Intermediate Procedure Risk: Low Anesthetic Plan Anesthetic Plan: GA Disposition: Standard PACU
[2023-04-30] VITALS (7 sets, daily range): BP systolic 119–130; BP diastolic 71–88; PULSE 87–99; RESP 16–18; TEMP 36.5–36.8; O2SAT 94–96; BMI 36.8
--- NOTE | 2023-04-30 07:32 | MHC.SHP ---
Pre-Procedural Eval Section A Date of Service: 04/30/23 The patient is an INPATIENT: No Changes since office visit: Yes Cold of Flu in the past 2 weeks, Yes New Medical Problems, Yes Changes in Medication and Yes Patient answered all questions The History & Physical has been completed within 30 days and I have reviewed it.: No Section B Chief Complaint: Unspecified tear of unspecified meniscus, current Allergies: Allergies Allergy/AdvReac Type Severity Reaction Status Date / Time No Known Allergies Allergy Verified 04/30/23 07:11 Plan I have reviewed the history and physical and performed a pertinent physical examination on my patient. No changes have occurred unless specified. Time Spent With Patient Time: Total time managing care of this patient today ____ minutes.
[2023-04-30] MEDS: Lactated Ringers 1,000 ML 100 ML IVCONT (07:44)
[2023-04-30 07:52] LABS: Glucose, Whole Blood 186 mg/dL (60-115)
--- NOTE | 2023-04-30 09:35 | P.BOP_ITS ---
Brief Operative Note Date of Service: 04/30/23 Pre-op diagnosis: MMT Post-op diagnosis: same Procedure: Partial mm Surgeon: Ranulfo Dorantes MD Anesthesia: GETA and local Was an Quality Management Coordinator used for this Procedure?: No Estimated blood loss (mL): 0 Tourniquet time (min): 24 IV fluids (mL): 750 Pathology: none sent Condition: stable Disposition: PACU
--- NOTE | 2023-05-02 15:34 | W.PM.OPN ---
Operative Note Operative Note Date of Service: 04/30/23 Narrative: Date of Service: 04/30/23 Pre-op diagnosis: MMT Post-op diagnosis: same Procedure: Partial mm Surgeon: Ranulfo Dorantes MD Anesthesia: GETA and local Was an Broadband Engineer used for this Procedure?: No Estimated blood loss (mL): 0 Tourniquet time (min): 24 IV fluids (mL): 750 Pathology: none sent Condition: stable Disposition: PACU Procedure in detail: Patient was brought to the operating room placed supine on the arthroscopic table and prepped and draped in standard sterile fashion. A time-out was called to identify proper site proper procedure proper surgeon and IV antibiotics per weight were administered. I began by exsanguinating the limb and insufflating tourniquet to 300 mm Hg. Then made a standard anterolateral stab incision. knee was insufflated with water and 30 degree arthroscope was placed. There was grade 0 fibrillations of the patella and the suprapatellar pouch and the gutters were clean. I descended into the medial compartment where I made my medial portal under direct visualization. There was a complex tear of the body and posterior horn of the medial meniscus. Root was intact and there were No cartilage changes or damage throughout the medial compartment. I used a combination of biter shaver and cautery to remove unstable portions of the meniscus. Approximately 30% meniscal volume was removed. Once I was happy with this the ACL was examined and found to be intact and the lateral compartment also was without the need for intervention. I then removed all instrumentation and closed the portals with skin glue. 25 mL of 2% Marcaine with epinephrine was injected into the joint and the surrounding soft tissues. Patient was then placed in sterile dressing extubated brought recovery room stable condition. There were no known complications.
== END 2023-04-30 11:32 | disposition home or self-care (01) ==
PROVIDERS: PCP Internal Medicine; Visit Provider Orthopaedic Surgery
PROC: (CPT 29870; principal; 2023-04-30 08:40)
DX: S83.231A Complex tear of medial meniscus, current injury, right knee, initial encounter (principal); R26.2 Difficulty in walking, not elsewhere classified; X58.XXXA Exposure to other specified factors, initial encounter; Y93.9 Activity, unspecified; Y92.9 Unspecified place or not applicable; Y99.8 Other external cause status; I10 Essential (primary) hypertension; E78.00 Pure hypercholesterolemia, unspecified; G47.33 Obstructive sleep apnea (adult) (pediatric); E66.01 Morbid (severe) obesity due to excess calories; Z68.37 Body mass index [BMI] 37.0-37.9, adult; E11.10 Type 2 diabetes mellitus with ketoacidosis without coma; Z79.4 Long term (current) use of insulin; Z79.899 Other long term (current) drug therapy; F17.210 Nicotine dependence, cigarettes, uncomplicated
CPT/HCPCS: 29881; 82947; J0131; J0171; J0690; J1100; J1885; J2405; J2795; J3010

== ENCOUNTER → 2023-04-30 06:56 | Outpatient (BNV) | payer OTHER, SELFPAY | PROVIDERS: PCP Internal Medicine; Visit Provider Orthopaedic Surgery | DX: S83.231A Complex tear of medial meniscus, current injury, right knee, initial encounter (principal) | CPT/HCPCS: 29881 ==

== ENCOUNTER 2023-05-08 10:53 | Outpatient (AMB) | payer OTHER, SELFPAY ==
--- NOTE | 2023-05-08 11:04 | MHC.OFFVIS ---
Intake Intake Visit Reasons: PO RT knee 04/30/23NE Intake Note: Aravind is a 42 year old male who presents today for a post operative right knee on 04/30/23 NE. Patient reports having off and on discomfort. He states that his knee feels better since the surgery. Allergies No Known Allergies Allergy (Verified 05/08/23 11:07) HPI PO RT knee 04/30/23NE HPI Details 42-year-old male who presents in the office today 1 week status post right knee partial medial menisectomy, which was performed on 04/30/[address] Dorantes. The patient reports having intermittent discomfort. He states his knee has felt better since the surgery. Patient confirms his first physical therapy session is next week. [facility] Medical History Diabetes Diabetic acidosis, type II Elevated cholesterol GERD (gastroesophageal reflux disease) HTN (hypertension) Obesity CAITY (obstructive sleep apnea) Surgical History Hx of kidney donation Social History Patient Tobacco Use Status: Current someday Tobacco user Tobacco use type: Cigarette Current occupational status: employed 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 Review of Systems Const All systems reviewed & are unremarkable except as noted in HPI and below Physical Exam Const General: cooperative, healthy appearing and no acute distress Resp Effort & Inspection: normal respiratory effort and able to speak in complete sentences Cardio Rate: regular rate Peripheral pulses: Peripheral pulses 2+ throughout GI Palpation (GI): Soft to palpation Skin Lesions: no lesions Rashes: no rashes Extrem Other: Right knee: Lacking 20 degrees of full extension. Flexion to 110 degrees. Incision site is clean, dry, and intact. No signs of infection. NVI. Assessment & Plan Assessment & Plan (1) S/P right knee arthroscopy: Comment: 04/30/2023 NE Code(s): Z98.890 - Other specified postprocedural states Plan Mr. Bautista is a 42-year-old male who presents in the office today 1 week status post right knee partial medial menisectomy, which was performed on 04/30/[address] Dorantes. The patient reports having intermittent discomfort. He states his knee has felt better since the surgery. Patient confirms his first physical therapy session is next week. I educated the patient and demonstrated gentle ROM exercises for him to work on. He will work with physical therapy on ROM and strengthening. He is cleaned to shower. Follow up will be in 4 weeks, or sooner if needed. Patient Instructions: Scribed for Lynne Sue PA-C by Erica Shrestha medical unit secretary, on 05/08/2023 at 11:10 am, EST. Coding Level of Care Code Global (53382) Diagnoses S/P right knee arthroscopy Z98.890
== END 2023-05-08 11:32 | disposition home or self-care (01) ==
PROVIDERS: PCP Internal Medicine; Visit Provider Physician Assistant
DX: Z98.890 Other specified postprocedural states (principal)
CPT/HCPCS: 99024

== ENCOUNTER → 2023-05-08 10:53 | Outpatient (BNVA) | payer OTHER, SELFPAY | PROVIDERS: PCP Internal Medicine; Visit Provider Physician Assistant ==

== ENCOUNTER 2023-06-05 12:18 | Outpatient (AMB) | payer OTHER, SELFPAY ==
--- NOTE | 2023-06-05 12:33 | A.OFFVIS_ITS ---
Intake Intake Visit Reasons: PO RT knee 04/30/23NE Allergies No Known Allergies Allergy (Verified 05/08/23 11:07) HPI PO RT knee 04/30/23NE HPI Details 43-year-old male who presents in the off ice today 1 month status post right knee partial medial menisectomy, which was performed on 04/30/[address] Dorantes. [facility] Medical History Diabetes Diabetic acidosis, type II Elevated cholesterol GERD (gastroesophageal reflux disease) HTN (hypertension) Obesity CAITY (obstructive sleep apnea) Surgical History Hx of kidney donation Social History Patient Tobacco Use Status: Current someday Tobacco user Tobacco use type: Cigarette Current occupational status: employed 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 Review of Systems Const All systems reviewed & are unremarkable except as noted in HPI and below Physical Exam Const General: cooperative, healthy appearing and no acute distress Resp Effort & Inspection: normal respiratory effort and able to speak in complete sentences Cardio Rate: regular rate Peripheral pulses: Peripheral pulses 2+ throughout GI Palpation (GI): Soft to palpation Skin Lesions: no lesions Rashes: no rashes Extrem Other: Right knee: Incision is clean, dry, and intact. No signs of infection. Mild effusion. Full knee ROM. NVI. Assessment & Plan Assessment & Plan (1) S/P right knee arthroscopy: Comment: 04/30/2023 NE Code(s): Z98.890 - Other specified postprocedural states Plan Mr. Bautista is a 43-year-old male who presents in the office today 1 month status post right knee partial medial menisectomy, which was performed on 04/30/[address] Dorantes. The patient is schedule for sessions with physical therapy until 06/19/2023. He is scheduled for a follow up in the clinic on 06/19/2023, at this time I anticipate a return to work status. He will remain out of work until follow up. Follow up is scheduled for 06/19/2023, or sooner if needed. Patient Instructions: Scribed for Lynne Sue PA-C by Erica Shrestha medical support assistant, on 06/05/2023 at 12:30 pm, EST. Coding Level of Care Code Global (65690) Diagnoses S/P right knee arthroscopy Z98.890
== END 2023-06-05 12:48 | disposition home or self-care (01) ==
PROVIDERS: PCP Internal Medicine; Visit Provider Physician Assistant
DX: Z98.890 Other specified postprocedural states (principal)
CPT/HCPCS: 99024

== ENCOUNTER → 2023-06-05 12:18 | Outpatient (BNVA) | payer OTHER, SELFPAY | PROVIDERS: PCP Internal Medicine; Visit Provider Physician Assistant ==

== ENCOUNTER 2023-06-19 12:00 | Outpatient (RCR) | payer OTHER, SELFPAY ==
[2023-05-13 11:12] VITALS: BP 115/77; PULSE 94
--- NOTE | 2023-05-13 11:52 | MHC.PT.EP ---
[facility] [place] Office [place] Office [place] Office [address] Dennise Marino [address] [phone] F: [phone] F: [phone] F: [phone] F: [phone] Physical Therapy Plan of Care Date of Evaluation: Date of Surgery: 04/30/23 Diagnosis: Unspecified tear of unspecified meniscus, current injury, R knee Assessment: Aravind is a 42 year old male who is referred to PT for Unspecified tear of unspecified meniscus, current injury, R knee . He is 2 weeks post op. On PT examination he presented with TTP along superior and lateral border of patella, 3/10 pain in the knee with bending, stairs and walking, decreased knee ROM, decreased R hip and knee strength, altered posture, balance and gait. He lives with his girl friend and is independent with all BADLS. His partner does all IADLS. 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 He enjoys playing soccer. He would benefit from skilled PT to address the aforementioned impairments and improve tolerance to functional activities. Frequency and Duration: The patient will be seen 2/week for 6 weeks. Short Term Goals: 1. Pt will have 50% decrease in pain which will enable to him tolerate sitting without pain in 2 weeks. 2. Pt will be able to bend his knee through full plane of motion without pain which will enable him to negotiate stairs without pain in 3 weeks. Senior Care Goals: 1. Pt will demonstrate an increase in muscle strength by 1 grade which will enable him to tolerate walking without pain in 5 weeks. 2. Pt will be independent with HEP and return to PLOF in 6 weeks. Treatment Plan: Modalities to reduce pain, spasms and effusion. Manual therapy to restore motion and function. Therapeutic exercise to improve strength and flexibility. Neuromuscular re-education for posture and balance. Therapeutic activities to return to functional activities of daily living. Electronically signed by: Marion Choudhury PT DPT Please sign and return to therapist. Thank you for your referral.
--- NOTE | 2023-07-04 13:28 | MHC.PT.DC ---
[facility] [place] Office [place] Office [place] Office [address] Dennise Marino [address] [phone] F: [phone] F: [phone] F: [phone] F: [phone] Physical Therapy Discharge Report Diagnosis: Unspecified tear of unspecified meniscus, current injury, R knee Date of Surgery: 04/30/23 Date of Evaluation: 05/13/23 Date of Discharge: 07/04/23 Treatments to Date: 10 Cancellations to Date: 0 No Shows to Date: 0 Discharge Status: Achieved Goals Improved Function Independent with HEP Discharge Summary: Aravind completed 10 PT visits and is independent with all HEP. He has achieved all goals set for him. He is therefore being d/c from PT. Electronically signed by: Marion Choudhury PT DPT Please sign and return to therapist. Thank you for your referral.
== END 2023-07-04 13:29 | disposition home or self-care (01) ==
LOC: HO.PT 12:00
PROVIDERS: PCP Internal Medicine; Visit Provider Orthopaedic Surgery
DX: S83.206D Unspecified tear of unspecified meniscus, current injury, right knee, subsequent encounter (principal)
CPT/HCPCS: 97110; 97161; 97530

== ENCOUNTER 2023-06-19 13:19 | Outpatient (AMB) | payer OTHER, SELFPAY ==
--- NOTE | 2023-06-19 14:07 | MHC.OFFVIS ---
Intake Vital Signs 06/19/23 14:12 Height 5 ft 7 in Weight 235 lb BMI 36.8 Intake Visit Reasons: PO-RT knee 04/30/23NE F/U Intake Note: Aravind is a 43 year old male who presents today for a post operative right knee on 04/30/23 NE. Patient reports having some throbbing pain which he takes Tylenol to help with that. He states that his ROM is better. He states he would like to know when he is able to return to work. Allergies No Known Allergies Allergy (Verified 06/19/23 14:08) HPI PO-RT knee 04/30/23NE F/U HPI Details 43-year-old male who presents in the office today 7 weeks status post right knee partial medial menisectomy, which was performed on 04/30/[address] Dorantes. The patient reports having some throbbing pain, which he is taking Tylenol to aid in relief. He claims his ROM has improved. He would like to know when he can return to work. 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 Incision site is full healed and well approximated. No signs of infection. Full ROM. NVI. Assessment & Plan Assessment & Plan (1) S/P right knee arthroscopy: Comment: 04/30/2023 NE Code(s): Z98.890 - Other specified postprocedural states Plan Mr. Bautista is a 43-year-old male who presents in the office today 7 weeks status post right knee partial medial menisectomy, which was performed on 04/30/[address] Dorantes. The patient reports having some throbbing pain, which he is taking Tylenol to aid in relief. He claims his ROM has improved. He would like to know when he can return to work. The patient may return to normal activities as tolerated. 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 Follow up will be PRN, or sooner if needed. Patient Instructions: Scribed for Lynne Sue PA-C by Erica Shrestha medical billing coder, on 06/19/2023 at 1:42 pm, EST. Coding Level of Care Code Global (49695) Diagnoses S/P right knee arthroscopy Z98.890
[2023-06-19 14:12] VITALS: BMI 36.8
== END 2023-06-19 14:30 | disposition home or self-care (01) ==
PROVIDERS: PCP Internal Medicine; Visit Provider Physician Assistant
DX: Z98.890 Other specified postprocedural states (principal)
CPT/HCPCS: 99024

== ENCOUNTER → 2023-06-19 13:19 | Outpatient (BNVA) | payer OTHER, SELFPAY | PROVIDERS: PCP Internal Medicine; Visit Provider Physician Assistant ==

== ENCOUNTER 2023-06-27 10:08 | Outpatient (REF) | payer OTHER, SELFPAY ==
[2023-06-27 12:20] LABS: Anion Gap 16 (12-20); Blood Urea Nitrogen 13 mg/dL (9-16); Calcium 9.7 mg/dL (8.4-10.2); Carbon Dioxide 24 mmol/L (22-29); Chloride 104 mmol/L (96-108); Estimated Glomerular Filt Rate 59; Potassium 4.6 mmol/L (3.3-5.1); Sodium 139 mmol/L (135-145)
== END 2023-06-27 10:09 | disposition home or self-care (01) ==
LOC: HO.LAB 10:08
PROVIDERS: Visit Provider Internal Medicine Nephrology
DX: E11.22 Type 2 diabetes mellitus with diabetic chronic kidney disease (principal); N18.31 Chronic kidney disease, stage 3a; R80.9 Proteinuria, unspecified
CPT/HCPCS: 36415; 80051; 82310; 82565; 84520

== ENCOUNTER 2023-08-12 14:02 | Outpatient (AMB) | payer OTHER, SELFPAY ==
--- NOTE | 2023-08-12 14:09 | A.OFFVIS_ITS ---
Intake Vital Signs 08/12/23 14:12 Height 5 ft 7 in Weight 231 lb 7.766 oz BMI 36.3 BP 110/68 Blood Pressure Location Lt brachial Position Sitting Pulse 99 Pulse Source Pulse Oximeter Pulse Oximetry (%) 97 Oxygen Delivery Method Room Air Intake Visit Reasons: Obstructive sleep apnea Intake Note: pt is here for follow up and feeling good, and the cpap has been giving him an itch at night that comes and goes. Safety And Occupational Health Manager Required: No Allergies No Known Allergies Allergy (Verified 08/12/23 14:35) Medication List - Last Reconciled 08/12/23 by Dheeraj Deutsch MD atorvastatin (Lipitor) 10 mg PO BEDTIME dapagliflozin propanediol (Farxiga) 10 mg PO DAILY dulaglutide (Trulicity) 0.75 mg subcut QWEEK finerenone (Kerendia) 10 mg PO DAILY glipizide 10 mg PO BID insulin glargine-yfgn (Semglee (insulin glargine-yfgn) Pen) 38 units subcut BID lisinopril (Zestril) 20 mg PO DAILY omeprazole 20 mg PO DAILY PRN oxycodone-acetaminophen 5-325 mg (Percocet) 1 tab PO Q8H PRN 7 days Do you need a note to return to daycare/school/sports/work: No HPI Obstructive sleep apnea HPI Details 43 YEARS OLD GENTLEMAN, GROSSLY OBESE WI TH DIAGNOSIS OF OBSTRUCTIVE SLEEP APNEA, COMES AFTER 6 MONTHS FOR FOLLOW-UP. HE IS A VERY REGULAR USER OF CPAP AT NIGHT, WITH FULL FACE. SLEEPS EXCELLENT. . DENIES ANY DAYTIME SLEEPINESS WEIGHT IS DOWN BY A FEW LB. HE WORKS AT THE [employer] AND IS ACTIVE DURING THE WHOLE DAY GOING UP AND DOWN STAIRS. 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 Review of Systems Const All systems reviewed & are unremarkable except as noted in HPI and below Eyes Reports no additional complaints ENT Reports dry mouth Card Reports no additional complaints Resp Reports no additional complaints GI Reports heartburn (BEING TREATED WITH OMEPRAZOLE) Reports no additional complaints Musc Reports no additional complaints Skin/Breast Reports system reviewed and no additional complaints, except as documented Neuro Reports no additional complaints Psych Reports no additional complaints Physical Exam Vital Signs: Last Vital Signs Pulse 99 08/12/23 14:12 BP 110/68 08/12/23 14:12 Pulse Ox 97 08/12/23 14:12 Oxygen Delivery Method Room Air 08/12/23 14:12 BMI result Body Mass Index 36.3 Const General: healthy appearing, comfortable, no acute distress, alert and awake Orientation/consciousness: patient oriented x3 HEENT Head: Yes normal to inspection General nose exam: No nasal polyps present and No nasal discharge present Face and sinus: Yes sinuses nontender Mouth: oropharynx abnormals (CROWDED AND VERY NARROW, MALLAMPATI CLASS 4) Throat: Yes posterior oropharynx normal Eyes General: appearance normal, both eyes and all related structures Neck Neck: Yes normal visual inspection, Yes no lymphadenopathy, Yes trachea midline, Yes no JVD and Yes other (NECK SIZE 17-1/2 INCH) Thyroid: Thyroid normal Chest Chest palpation & inspection: normal inspection of the chest, normal palpation of entire chest wall and no tenderness Resp Effort & Inspection: normal respiratory effort Auscultation: clear to auscultation bilaterally, no rhonchi and no wheezes Percussion: percussion normal Cardio Palpation: normal PMI Rate: regular rate Rhythm: regular rhythm Heart sounds: no gallops and no murmurs Peripheral pulses: Peripheral pulses 2+ throughout GI Palpation (GI): Soft to palpation, nontender, No hepatosplenomegaly present and no masses Auscultation: normal bowel sounds Back/Spine/Pelvis Thoracic/Lumbar Spine: thoracic and lumbar spine normal to inspection Skin General skin exam: no rashes or lesions noted Neuro General: patient oriented x3 and no focal motor deficits Cranial nerves: Yes CN's II-XII intact bilaterally Extrem General: Yes normal to inspection, No no joint enlargement (Both knees are tender and slightly swollen.), Yes no clubbing, cyanosis or edema and Yes no calf tenderness Psych Appearance: grossly normal and well kempt Speech and movement: Normal speech and movement present Results Reviewed Results Reviewed: COMPLIANCE REPORT IS REVIEWED USED 30/30 NIGHTS, 100% AVERAGE USE PER NIGHT 7 HOURS 51 MINUTES PRESSURE USED 10-11 CM NO AIR LEAK . RESIDUAL AHI ONLY 0.5 Assessment & Plan Assessment & Plan (1) Obesity: Comment: He is grossly obese. has lost 4 LBs this time Reinforced the need to lose weight. He will try his best to cut down the intake of calories and also walk on a daily basis . I advised him that if he cannot walk much, then he should concentrate on doing upper body exercises daily. Code(s): E66.9 - Obesity, unspecified (2) CAITY (obstructive sleep apnea): Comment: Patient had severe obstructive sleep apnea with total sleep time AHI 38. It is well treated with the CPAP. Patient has been using CPAP very regularly. He is benefiting and his sleep quality is much improved. He is motivated to keep on using the CPAP. Code(s): G47.33 - Obstructive sleep apnea (adult) (pediatric) Coding Level of Care Code Est Pt Level 3 (96805) Diagnoses Obesity E66.9 CAITY (obstructive sleep apnea) G47.33
[2023-08-12 14:12] VITALS: BP 110/68; PULSE 99; O2SAT 97; BMI 36.3
== END 2023-08-12 14:40 | disposition home or self-care (01) ==
PROVIDERS: PCP Internal Medicine; Visit Provider Internal Medicine
DX: E66.9 Obesity, unspecified (principal); G47.33 Obstructive sleep apnea (adult) (pediatric)
CPT/HCPCS: 99213

== ENCOUNTER → 2023-08-12 14:02 | Outpatient (BNVA) | payer OTHER, SELFPAY | PROVIDERS: PCP Internal Medicine; Visit Provider Internal Medicine ==

== ENCOUNTER 2023-08-27 09:29 | Outpatient (REF) | payer OTHER, SELFPAY ==
[2023-08-27 09:46] LABS: MANUAL DIFF FLAG NO
[2023-08-27 10:27] LABS: Basophils Absolute Auto 0.1 X10*3/uL (0.0-0.2); Basophils Percent Auto 0.5 % (0-2); Eosinophils Absolute Auto 0.6 X10*3/uL (0.0-0.4); Eosinophils Percent Auto 5.3 % (0-4); Imm Gran Abs Auto 0.06 X10*3/uL (0.00-0.03); Imm Gran Pct Auto 0.5 % (0.0-0.4); Lymphocytes Absolute Auto 3.1 X10*3/uL (1.2-4.9); Lymphocytes Percent Auto 27.6 % (20-40); Mean Corpuscular HGB Conc 32.4 g/dl (31.0-36.0); Mean Corpuscular Hemoglobin 29.2 pg (27.0-33.0); Mean Platelet Volume 9.8 fL (9.4-12.4); Monocytes Absolute Auto 0.6 X10*3/uL (0.1-1.2); Monocytes Percent Auto 5.3 % (2-11); Neutrophils Absolute Auto 6.7 x10*3/uL (2.0-8.3); Neutrophils Percent Auto 60.8 % (45-73); Platelet Count 255 X10*3/uL (160-400); Red Blood Count 6.17 X10*6/uL (4.60-5.80); Red Cell Distribution Width 13.2 % (11.0-16.0); White Blood Count 11.1 X10*3/uL (4.8-10.8)
[2023-08-27 10:30] LABS: Hematocrit 55.5 % (42.0-52.0)
[2023-08-27 10:39] LABS: Estimated Average Glucose 200 mg/dL; Hemoglobin A1c % 8.6 % (<6.0)
[2023-08-27 10:53] LABS: Alanine Aminotransferase 36 U/L (0-40); Albumin Level 4.4 g/dL (3.5-5.0); Alkaline Phosphatase 132 U/L (39-117); Anion Gap 12 (12-20); Aspartate Amino Transferase 28 U/L (5-37); Bilirubin Total 1.2 mg/dL (0.0-1.0); Blood Urea Nitrogen 12 mg/dL (9-16); Calcium 9.5 mg/dL (8.4-10.2); Carbon Dioxide 25 mmol/L (22-29); Chloride 105 mmol/L (96-108); Cholesterol 138 mg/dL (<200); Estimated Glomerular Filt Rate 59; Glucose Fasting 121 mg/dL (60-99); HDL Cholesterol 30 mg/dL (>40); LDL Cholesterol Calculated 67 mg/dL (<100); Potassium 4.4 mmol/L (3.3-5.1); Sodium 138 mmol/L (135-145); Total Protein 7.4 g/dL (6.5-8.0); Triglycerides 205 mg/dL (<150)
[2023-08-27 11:23] LABS: Creatinine Urine 138.74 mg/dL; Microalbum/Creatinine Ratio Ur 207.5 ug/mg cr (<30)
== END 2023-08-27 09:30 | disposition home or self-care (01) ==
LOC: HO.LAB 09:29
PROVIDERS: PCP Internal Medicine; Visit Provider Internal Medicine
DX: I12.9 Hypertensive chronic kidney disease with stage 1 through stage 4 chronic kidney disease, or unspecified chronic kidney disease (principal); E11.22 Type 2 diabetes mellitus with diabetic chronic kidney disease; N18.9 Chronic kidney disease, unspecified; E78.00 Pure hypercholesterolemia, unspecified
CPT/HCPCS: 36415; 80053; 80061; 82043; 82570; 83036; 85025

== ENCOUNTER 2023-11-11 09:05 | Outpatient (REF) | payer OTHER, SELFPAY ==
[2023-11-11 09:33] LABS: MANUAL DIFF FLAG NO
[2023-11-11 09:57] LABS: Basophils Absolute Auto 0.1 X10*3/uL (0.0-0.2); Basophils Percent Auto 0.7 % (0-2); Eosinophils Absolute Auto 0.8 X10*3/uL (0.0-0.4); Eosinophils Percent Auto 7.7 % (0-4); Hematocrit 53.8 % (42.0-52.0); Hemoglobin 17.6 g/dl (14.0-18.0); Imm Gran Abs Auto 0.07 X10*3/uL (0.00-0.03); Imm Gran Pct Auto 0.7 % (0.0-0.4); Lymphocytes Absolute Auto 2.9 X10*3/uL (1.2-4.9); Lymphocytes Percent Auto 28.3 % (20-40); Mean Corpuscular HGB Conc 32.7 g/dl (31.0-36.0); Mean Corpuscular Hemoglobin 29.2 pg (27.0-33.0); Mean Corpuscular Volume 89.2 fL (80.0-98.0); Mean Platelet Volume 9.5 fL (9.4-12.4); Monocytes Absolute Auto 0.6 X10*3/uL (0.1-1.2); Monocytes Percent Auto 5.7 % (2-11); Neutrophils Absolute Auto 5.8 x10*3/uL (2.0-8.3); Neutrophils Percent Auto 56.9 % (45-73); Platelet Count 265 X10*3/uL (160-400); Red Blood Count 6.03 X10*6/uL (4.60-5.80); Red Cell Distribution Width 13.2 % (11.0-16.0); White Blood Count 10.2 X10*3/uL (4.8-10.8)
[2023-11-11 10:40] LABS: Creatinine Urine 88.92 mg/dL; Microalbum/Creatinine Ratio Ur 218.1 ug/mg cr (<30)
[2023-11-11 11:18] LABS: Alanine Aminotransferase 30 U/L (0-40); Albumin Level 4.5 g/dL (3.5-5.0); Alkaline Phosphatase 146 U/L (39-117); Anion Gap 12 (12-20); Aspartate Amino Transferase 20 U/L (5-37); Blood Urea Nitrogen 13 mg/dL (9-16); Calcium 9.9 mg/dL (8.4-10.2); Carbon Dioxide 27 mmol/L (22-29); Chloride 105 mmol/L (96-108); Estimated Glomerular Filt Rate > 60; Glucose Random 154 mg/dL (60-115); Iron 103 mcg/dL (45-160); Percent Iron Saturation 34 % (15-50); Potassium 4.5 mmol/L (3.3-5.1); Sodium 139 mmol/L (135-145); Total Iron Binding Capacity 307 mcg/dL (228-428); Total Protein 7.7 g/dL (6.5-8.0); Unsaturated Iron Binding 204 ug/dL
[2023-11-11 11:19] LABS: Ferritin 359 ng/mL (20-250)
[2023-11-11 16:33] LABS: Estimated Average Glucose 171 mg/dL; Hemoglobin A1c % 7.6 % (<6.0)
== END 2023-11-11 09:06 | disposition home or self-care (01) ==
LOC: HO.LAB 09:05
PROVIDERS: PCP Internal Medicine; Visit Provider Internal Medicine
DX: I12.9 Hypertensive chronic kidney disease with stage 1 through stage 4 chronic kidney disease, or unspecified chronic kidney disease (principal); E11.22 Type 2 diabetes mellitus with diabetic chronic kidney disease; N18.9 Chronic kidney disease, unspecified; Z79.4 Long term (current) use of insulin
CPT/HCPCS: 36415; 80053; 82043; 82570; 82728; 83036; 83540; 85025

== ENCOUNTER 2024-01-14 11:17 | Outpatient (AMB) | payer OTHER, SELFPAY ==
--- NOTE | 2024-01-14 11:18 | MHC.OFFVIS ---
Intake Visit Reasons: dysuria Intake Note: New Patient presents for initial visit for penile irritation Urology Medications: none, treated with otc neosporin and cortisone Blood Thinner: none Bowling Pin Refinisher Required: No Accompanied by: Self / Same As Patient Allergies No Known Allergies Allergy (Verified 01/14/24 11:52) Medication List - Last Reconciled 01/14/24 by RUFUS Oquendo atorvastatin (Lipitor) 10 mg PO BEDTIME dapagliflozin propanediol (Farxiga) 10 mg PO DAILY dulaglutide (Trulicity) 0.75 mg subcut QWEEK finerenone (Kerendia) 10 mg PO DAILY glipizide 10 mg PO BID insulin glargine-yfgn (Semglee (insulin glargine-yfgn) Pen) 38 units subcut BID lisinopril (Zestril) 20 mg PO DAILY omeprazole 20 mg PO DAILY PRN HPI Comments Details: Aravind is a pleasant 43-year-old male patient of Dr. Craft. He has a past medical history of diabetes, solitary kidney, hypertension, hyperlipidemia, GERD, and overweight. He presents to the office today as a new patient for phimosis. He reports having followed up with his PCP as he has been experiencing issues with the foreskin of his penis. In assessment of the patient today his penis is uncircumcised and foreskin is retractable. The head of the penis is reddened. Otherwise no open areas, lesions, and or drainage noted. He denies any bothersome urinary issues or concerns. In office urinalysis results reviewed with the patient today. Discussed at length importance of weight loss in relation to buried penis. When asked he denies urinary urgency, urinary frequency, incontinence, nocturia, hematuria, dysuria, foul smelling urine, changes to urinary stream, flank pain, fever, and or chills. He is happy with his current voiding parameters. When asked he reports last A1c to be 7.2. Discussed at length proper care of area as well as potential near future circumcision. He otherwise offers no other issues or concerns at this time. 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 Review of Systems Const Reports no additional complaints Eyes Reports no additional complaints ENT Reports no additional complaints Card Reports as per HPI Resp Reports as per HPI Reports as per HPI Musc Reports no additional complaints Neuro Reports no additional complaints Psych Reports no additional complaints Endo Reports as per HPI Esdras/Lymph Reports no additional complaints Aller/Immun Reports no additional complaints Physical Exam Const General: cooperative, healthy appearing, comfortable, no acute distress, well developed, alert and awake Nutritional Appearance: overweight Orientation/consciousness: patient oriented x3 Limitations: no limitations HEENT Head: Yes normal to inspection, Yes normocephalic and Yes atraumatic Ears: hearing grossly normal bilaterally Eyes General: appearance normal, both eyes and all related structures Neck Neck: Yes normal visual inspection and Yes trachea midline Chest Chest palpation & inspection: normal inspection of the chest Resp Effort & Inspection: normal respiratory effort and able to speak in complete sentences Cardio Rate: regular rate GI Inspection: Yes normal to inspection Other: As per HPI General: Yes no CVA tenderness Penis: normal penis, uncircumcised and phimosis (grade II) Meatus: meatus normal Scrotum: scrotum normal Testes: Testes normal Back/Spine/Pelvis Back: no CVA tenderness Skin General skin exam: no rashes or lesions noted Neuro General: patient oriented x3 Extrem General: Yes normal to inspection Psych Appearance: grossly normal and well kempt Mental Status: mental status grossly normal Speech and movement: Normal speech and movement present and Clear speech present Affect: normal affect Attitude: cooperative Thought process: Normal thought process present Thought content: Normal thought content present Insight: Fair insight present (Psych) Judgement: Fair judgement present (Psych) Results AMB Urinalysis, Automated UA Leukoctes 0 Brandon/uL Last Edit by Nikita Mccloud on 01/14/24 11:48 UA Nitrite Negative Last Edit by Nikita Mccloud on 01/14/24 11:48 UA Urobilinogen 0.2 mg/dL Last Edit by Nikita Mccloud on 01/14/24 11:48 UA Protein 30 mg/dL Last Edit by Nikita Martinezmitchel on 01/14/24 11:48 UA pH 5.5 Last Edit by Nikita Martinezmitchel on 01/14/24 11:48 UA Blood 0 Nadir/uL Last Edit by [employer] Michellemitchel on 01/14/24 11:48 UA Specific [place] 1.015 Last Edit by [employer] Michellemitchel on 01/14/24 11:48 UA Ketone Negative Last Edit by [employer] Michellemitchel on 01/14/24 11:48 UA Bilirubin 0 mg/dL Last Edit by [employer] Michellemitchel on 01/14/24 11:48 UA Glucose 1000 mg/dL Last Edit by Nikita Michellemitchel on 01/14/24 11:48 Results Reviewed Results Reviewed: Laboratory Last Values Urine pH (Auto) 5.5 01/14/24 11:45 Specific [place] (Auto) 1.015 01/14/24 11:45 Urine Protein (Auto) 30 mg/dL 01/14/24 11:45 Glucose (UA)(Auto) 1000 mg/dL 01/14/24 11:45 Urine Ketones (Auto) Negative 01/14/24 11:45 Urine Blood (Auto) 0 Nadir/uL 01/14/24 11:45 Urine Nitrite (Auto) Negative 01/14/24 11:45 Urine Bilirubin (Auto) 0 mg/dL 01/14/24 11:45 Urine Urobilinogen (Auto) 0.2 mg/dL 01/14/24 11:45 Leukocyte Esterase (Auto) 0 Brandon/uL 01/14/24 11:45 Assessment & Plan Assessment & Plan (1) Phimosis: Code(s): N47.1 - Phimosis Category: Medical (2) Balanitis: Code(s): N48.1 - Balanitis Category: Medical Plan In office urinalysis results reviewed with the patient today; as noted above; discussed proteinuria; however patient follows up with Nephrology as he has solitary kidney; he donated one of his kidneys to his family members. Discussed at length importance of managing diabetes for improvement in overall health and well-being. Discussed importance of weight loss in relation to phimosis. Start clotrimazole-betamethasone 1-0.05 % as discussed and prescribed. Discussed potential near future circumcision. Patient otherwise denies any bothersome urinary issues or concerns. He is happy with his current voiding parameters. Follow-up in 1-2 months; or sooner with any issues, concerns, and or questions. Orders: Orders AMB Urinalysis Automated Today Z13.9 - Encounter for screening, unspecified Medications: New clotrimazole-betamethasone 1-0.05 % Apply thin coat 2 times per day 1 appl topical BID 4 weeks 45 grams 0RF N48.1 - Balanitis Patient Instructions: The patient had an opportunity to ask questions regarding the treatment plan. All questions were answered. Physical exam, labs, and imaging were discussed and reviewed in detail. As well as risks, benefits, and discussion of treatment choices. No major barriers to understanding were identified. The patient expressed understanding and agreement with the above treatment plan. The patient was made aware they should contact our office by phone for worsening of their current condition, the appearance of new symptoms, or with any questions or concerns. Compliance is encouraged with any medications and follow up testing that is ordered. It is a privilege to be allowed the opportunity to participate in? your urological care.? Again, if you have any questions or concerns If you have any questions or concerns please do not hesitate to contact me. The office is [phone]. This note is constructed using voice recognition software. While every effort has been made to ensure accuracy terrazzo layer errors may have been included. Yours sincerely, RUFUS Oquendo Coding Level of Care Code New Pt Level 4 (70058) Diagnoses Phimosis N47.1 Balanitis N48.1
== END 2024-01-14 11:51 | disposition home or self-care (01) ==
PROVIDERS: PCP Internal Medicine; Visit Provider Nurse Practitioner Family
DX: N47.1 Phimosis (principal); N48.1 Balanitis
CPT/HCPCS: 99204

== ENCOUNTER → 2024-01-14 11:17 | Outpatient (BNVA) | payer OTHER, SELFPAY | PROVIDERS: PCP Internal Medicine; Visit Provider Nurse Practitioner Family | DX: N47.1 Phimosis (principal); N48.1 Balanitis | CPT/HCPCS: 81003 ==

== ENCOUNTER 2024-01-26 10:41 | Outpatient (REF) | payer OTHER, SELFPAY ==
[2024-01-26 10:53] LABS: MANUAL DIFF FLAG NO
[2024-01-26 11:03] LABS: Basophils Absolute Auto 0.1 X10*3/uL (0.0-0.2); Basophils Percent Auto 0.8 % (0-2); Eosinophils Absolute Auto 0.3 X10*3/uL (0.0-0.4); Hematocrit 51.9 % (42.0-52.0); Hemoglobin 17.4 g/dl (14.0-18.0); Imm Gran Abs Auto 0.05 X10*3/uL (0.00-0.03); Imm Gran Pct Auto 0.5 % (0.0-0.4); Lymphocytes Absolute Auto 2.8 X10*3/uL (1.2-4.9); Lymphocytes Percent Auto 29.2 % (20-40); Mean Corpuscular HGB Conc 33.5 g/dl (31.0-36.0); Mean Corpuscular Volume 86.4 fL (80.0-98.0); Mean Platelet Volume 9.1 fL (9.4-12.4); Monocytes Absolute Auto 0.5 X10*3/uL (0.1-1.2); Monocytes Percent Auto 5.5 % (2-11); Neutrophils Absolute Auto 5.8 x10*3/uL (2.0-8.3); Platelet Count 254 X10*3/uL (160-400); Red Blood Count 6.01 X10*6/uL (4.60-5.80); White Blood Count 9.6 X10*3/uL (4.8-10.8)
[2024-01-26 11:27] LABS: Estimated Average Glucose 194 mg/dL; Hemoglobin A1c % 8.4 % (<6.0)
[2024-01-26 11:35] LABS: Creatinine Urine 114.75 mg/dL
[2024-01-26 11:44] LABS: Alanine Aminotransferase 40 U/L (0-40); Albumin Level 4.5 g/dL (3.5-5.0); Alkaline Phosphatase 152 U/L (39-117); Anion Gap 14 (12-20); Aspartate Amino Transferase 23 U/L (5-37); Bilirubin Total 1.7 mg/dL (0.0-1.0); Blood Urea Nitrogen 20 mg/dL (9-16); Calcium 9.7 mg/dL (8.4-10.2); Carbon Dioxide 23 mmol/L (22-29); Chloride 106 mmol/L (96-108); Estimated Glomerular Filt Rate > 60; Glucose Random 139 mg/dL (60-115); Potassium 4.1 mmol/L (3.3-5.1); Sodium 139 mmol/L (135-145); Total Protein 7.7 g/dL (6.5-8.0)
[2024-01-26 11:47] LABS: Microalbum/Creatinine Ratio Ur 580.3 ug/mg cr (<30)
[2024-01-26 11:57] LABS: Ferritin 491 ng/mL (20-250)
== END 2024-01-26 10:42 | disposition home or self-care (01) ==
LOC: HO.LAB 10:41
PROVIDERS: PCP Internal Medicine; Visit Provider Internal Medicine
DX: E11.9 Type 2 diabetes mellitus without complications (principal); I10 Essential (primary) hypertension; K21.9 Gastro-esophageal reflux disease without esophagitis
CPT/HCPCS: 36415; 80053; 82043; 82570; 82728; 83036; 85025

== ENCOUNTER 2024-02-12 13:57 | Outpatient (AMB) | payer OTHER, SELFPAY ==
[2024-02-12 14:10] VITALS: BP 110/62; PULSE 84; O2SAT 97; BMI 35.7
--- NOTE | 2024-02-12 14:10 | MHC.OFFVIS ---
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 Allergies No Known Allergies Allergy (Verified 02/12/24 14:35) Medication List - Last Reconciled 02/12/24 by Dheeraj Deutsch MD atorvastatin (Lipitor) 10 mg PO BEDTIME clotrimazole-betamethasone 1-0.05 % 1 appl topical BID 4 weeks dapagliflozin propanediol (Farxiga) 10 mg PO DAILY dulaglutide (Trulicity) 0.75 mg subcut QWEEK finerenone (Kerendia) 10 mg PO DAILY glipizide 10 mg PO BID insulin glargine-yfgn (Semglee (insulin glargine-yfgn) Pen) 38 units subcut BID lisinopril (Zestril) 20 mg PO DAILY omeprazole 20 mg PO DAILY PRN Do you need a note to return to daycare/school/sports/work: No HPI HPI Obstructive sleep apnea: Details: 43 YEARS OLD GENTLEMAN COMES FOR FOLLOW-UP FOR HIS SLEEP APNEA. HE USES HIS CPAP VERY REGULARLY EVERY NIGHT EXCEPT IF HE IS WORKING AT NIGHT. HE ACTUALLY COULD NOT SLEEP WITHOUT USING THE CPAP. USING FULLFA.CE MASK WHICH IS COMFORTABLE. HIS WEIGHT IS SAME EXCEPT HE LOST ABOUT 3 LB IN LAST 6 MONTHS. HE QUIT SMOKING LAST YEAR AND BREATHING HENNESSY FEELS MUCH BETTER. 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 Review of Systems Const All systems reviewed & are unremarkable except as noted in HPI and below Eyes Reports no additional complaints ENT Reports dry mouth Card Reports no additional complaints Resp Reports no additional complaints GI Reports heartburn (BEING TREATED WITH OMEPRAZOLE) Reports no additional complaints Musc Reports no additional complaints Skin/Breast Reports system reviewed and no additional complaints, except as documented Neuro Reports no additional complaints Psych Reports no additional complaints Physical Exam Vital Signs: Last Vital Signs Pulse 84 02/12/24 14:10 BP 110/62 02/12/24 14:10 Pulse Ox 97 02/12/24 14:10 Oxygen Delivery Method Room Air 02/12/24 14:10 BMI result Body Mass Index 35.7 Const General: healthy appearing, comfortable, no acute distress, alert and awake Orientation/consciousness: patient oriented x3 HEENT Head: Yes normal to inspection General nose exam: No nasal polyps present and No nasal discharge present Face and sinus: Yes sinuses nontender Mouth: oropharynx abnormals (CROWDED AND VERY NARROW, MALLAMPATI CLASS 4) Throat: Yes posterior oropharynx normal Eyes General: appearance normal, both eyes and all related structures Neck Neck: Yes normal visual inspection, Yes no lymphadenopathy, Yes trachea midline, Yes no JVD and Yes other (NECK SIZE 17-1/2 INCH) Thyroid: Thyroid normal Chest Chest palpation & inspection: normal inspection of the chest, normal palpation of entire chest wall and no tenderness Resp Effort & Inspection: normal respiratory effort Auscultation: clear to auscultation bilaterally, no rhonchi and no wheezes Percussion: percussion normal Cardio Palpation: normal PMI Rate: regular rate Rhythm: regular rhythm Heart sounds: no gallops and no murmurs Peripheral pulses: Peripheral pulses 2+ throughout GI Palpation (GI): Soft to palpation, nontender, No hepatosplenomegaly present and no masses Auscultation: normal bowel sounds Back/Spine/Pelvis Thoracic/Lumbar Spine: thoracic and lumbar spine normal to inspection Skin General skin exam: no rashes or lesions noted Neuro General: patient oriented x3 and no focal motor deficits Cranial nerves: Yes CN's II-XII intact bilaterally Extrem General: Yes normal to inspection, No no joint enlargement (Both knees are tender and slightly swollen.), Yes no clubbing, cyanosis or edema and Yes no calf tenderness Psych Appearance: grossly normal and well kempt Speech and movement: Normal speech and movement present Results Reviewed Results Reviewed: COMPLIANCE REPORT FOR THE LAST 30 NIGHTS IS REVIEWED. USED, 83.% AVERAGE USE PER NIGHT 7 HOURS 47 .MINUTES PRESSURE USED MOSTLY 10-12 CM, THERE IS NO SIG,NIFICANT AIR LEAK RESIDUAL AHI 0.6 Assessment & Plan Assessment & Plan (1) Obesity: Comment: HE IS MODERATELY OBESE has lost 3 LBs this time Code(s): E66.9 - Obesity, unspecified Category: Medical Plan: Reinforced the need to lose more weight. He will try his best to cut down the intake of calories and also walk on a daily basis. (2) CAITY (obstructive sleep apnea): Comment: Patient had severe obstructive sleep apnea with total sleep time AHI 38. It is well treated with the CPAP. Patient has been using CPAP very regularly, missed about 3 nights in the month, because of work schedule Code(s): G47.33 - Obstructive sleep apnea (adult) (pediatric) Category: Medical Plan: COMMENDED FOR GOOD COMPLIANCE. ADVISED TO CONTINUE USING THE CPAP REGULARLY Coding Level of Care Code Est Pt Level 3 (31486) Diagnoses Obesity E66.9 CAITY (obstructive sleep apnea) G47.33
== END 2024-02-12 14:36 | disposition home or self-care (01) ==
PROVIDERS: PCP Internal Medicine; Visit Provider Internal Medicine
DX: E66.9 Obesity, unspecified (principal); G47.33 Obstructive sleep apnea (adult) (pediatric)
CPT/HCPCS: 99213

== ENCOUNTER → 2024-02-12 13:57 | Outpatient (BNVA) | payer OTHER, SELFPAY | PROVIDERS: PCP Internal Medicine; Visit Provider Internal Medicine ==

== ENCOUNTER 2024-04-06 13:27 | Outpatient (REF) | payer OTHER, SELFPAY ==
[2024-04-06 13:53] LABS: MANUAL DIFF FLAG NO
[2024-04-06 14:23] LABS: Basophils Absolute Auto 0.1 X10*3/uL (0.0-0.2); Basophils Percent Auto 0.5 % (0-2); Eosinophils Absolute Auto 0.3 X10*3/uL (0.0-0.4); Eosinophils Percent Auto 3.3 % (0-4); Hematocrit 52.6 % (42.0-52.0); Hemoglobin 17.2 g/dl (14.0-18.0); Imm Gran Abs Auto 0.04 X10*3/uL (0.00-0.03); Imm Gran Pct Auto 0.4 % (0.0-0.4); Lymphocytes Absolute Auto 2.4 X10*3/uL (1.2-4.9); Mean Corpuscular HGB Conc 32.7 g/dl (31.0-36.0); Mean Corpuscular Hemoglobin 28.8 pg (27.0-33.0); Mean Platelet Volume 9.6 fL (9.4-12.4); Monocytes Absolute Auto 0.5 X10*3/uL (0.1-1.2); Monocytes Percent Auto 5.3 % (2-11); Neutrophils Percent Auto 64.5 % (45-73); Platelet Count 239 X10*3/uL (160-400); Red Blood Count 5.98 X10*6/uL (4.60-5.80); Red Cell Distribution Width 13.1 % (11.0-16.0); White Blood Count 9.3 X10*3/uL (4.8-10.8)
[2024-04-06 14:55] LABS: Albumin Level 4.6 g/dL (3.5-5.0); Anion Gap 15 (12-20); Blood Urea Nitrogen 13 mg/dL (9-16); Calcium 9.4 mg/dL (8.4-10.2); Carbon Dioxide 22 mmol/L (22-29); Chloride 105 mmol/L (96-108); Estimated Glomerular Filt Rate 59; Phosphorus 3.1 mg/dL (2.7-4.5); Potassium 4.3 mmol/L (3.3-5.1); Sodium 138 mmol/L (135-145)
[2024-04-06 14:59] LABS: Parathyroid Hormone Intact 103.1 pg/mL (8.7-77.1)
[2024-04-06 15:13] LABS: Vitamin D 25-OH Total 19.7 ng/mL (>30)
[2024-04-06 15:27] LABS: Appearance Urine Clear; Color Urine Yellow; Glucose Urine UA >=1000 mg/dL (Negative); Leukocyte Esterase Urine Negative (Negative); Nitrite Urine Negative (Negative); PH 5.5 (5.0-9.0); Specific Gravity - Urine >= 1.030 (1.005-1.025); UMIC TRIGGER UA YES; Urine Blood Negative (Negative); Urine Ketones Negative (Negative); Urine Protein 100 (2+) mg/dL (Neg-Trace)
[2024-04-06 15:29] LABS: Bacteria Urine None Seen (None Seen); Hyaline Casts Urine 0-2 /LPF (0-2); RBC Urine 0-2 /HPF (0-2); Squamous Epithelial Cell Urine 0-2 /HPF (0-2); WBC Urine 0-5 /HPF (0-5)
[2024-04-06 16:03] LABS: Creatinine Urine 185.61 mg/dL; Protein/Creatinine Ratio, Ur 0.51 (<0.2); Total Protein Urine Random 95 mg/dL (<12)
[2024-04-06 21:22] LABS: Microalbum/Creatinine Ratio Ur 363.6 ug/mg cr (<30)
== END 2024-04-06 13:28 | disposition home or self-care (01) ==
LOC: HO.LAB 13:27
PROVIDERS: PCP Internal Medicine; Visit Provider Internal Medicine Nephrology
DX: E11.22 Type 2 diabetes mellitus with diabetic chronic kidney disease (principal); N18.31 Chronic kidney disease, stage 3a; R80.1 Persistent proteinuria, unspecified
CPT/HCPCS: 36415; 80051; 81001; 82040; 82043; 82306; 82310; 82565; 82570; 83735; 83970; 84100; 84156; 84520; 85025

== ENCOUNTER 2024-08-16 13:44 | Outpatient (AMB) | payer OTHER, SELFPAY ==
--- NOTE | 2024-08-16 13:55 | MHC.OFFVIS ---
Vital Signs 08/16/24 13:56 Height 5 ft 7 in Weight 228 lb BMI 35.7 BP 102/78 Blood Pressure Location Lt brachial Position Sitting Pulse 103 H Pulse Source Pulse Oximeter Pulse Oximetry (%) 97 Oxygen Delivery Method Room Air Intake Visit Reasons: Obstructive sleep apnea Intake Note: pt is here for follow up and states he is doing well with cpap Drafter (Cad) Electrical Required: No Allergies No Known Allergies Allergy (Verified 08/16/24 14:25) Medication List - Last Reconciled 08/16/24 by Dheeraj Deutsch MD atorvastatin (Lipitor) 10 mg PO BEDTIME clotrimazole-betamethasone 1-0.05 % 1 appl topical BID 4 weeks dapagliflozin propanediol (Farxiga) 10 mg PO DAILY dulaglutide (Trulicity) 0.75 mg subcut QWEEK finerenone (Kerendia) 10 mg PO DAILY glipizide 10 mg PO BID insulin glargine-yfgn (Semglee (insulin glargine-yfgn) Pen) 38 units subcut BID lisinopril (Zestril) 20 mg PO DAILY omeprazole 20 mg PO DAILY PRN Do you need a note to return to daycare/school/sports/work: No HPI HPI Obstructive sleep apnea: Details: This 44 years old very pleasant gentleman who is moderately obese and has obstructive sleep apnea, comes for. Follow-up after 6 months He uses CPAP very regularly every night for more than 7 hours per night. He is going to school and studying to become dermatology technician. He is very happy with CPAP , offers no complaints. Weight remains unchanged. 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 Review of Systems Const All systems reviewed & are unremarkable except as noted in HPI and below Eyes Reports no additional complaints ENT Reports dry mouth Card Reports no additional complaints Resp Reports no additional complaints GI Reports heartburn (BEING TREATED WITH OMEPRAZOLE) Reports no additional complaints Musc Reports no additional complaints Skin/Breast Reports system reviewed and no additional complaints, except as documented Neuro Reports no additional complaints Psych Reports no additional complaints Physical Exam Vital Signs: Last Vital Signs Pulse 103 H 08/16/24 13:56 BP 102/78 08/16/24 13:56 Pulse Ox 97 08/16/24 13:56 Oxygen Delivery Method Room Air 08/16/24 13:56 BMI result Body Mass Index 35.7 Const General: healthy appearing, comfortable, no acute distress, alert and awake Orientation/consciousness: patient oriented x3 HEENT Head: Yes normal to inspection General nose exam: No nasal polyps present and No nasal discharge present Face and sinus: Yes sinuses nontender Mouth: oropharynx abnormals (CROWDED AND VERY NARROW, MALLAMPATI CLASS 4) Throat: Yes posterior oropharynx normal Eyes General: appearance normal, both eyes and all related structures Neck Neck: Yes normal visual inspection, Yes no lymphadenopathy, Yes trachea midline, Yes no JVD and Yes other (NECK SIZE 17-1/2 INCH) Thyroid: Thyroid normal Chest Chest palpation & inspection: normal inspection of the chest, normal palpation of entire chest wall and no tenderness Resp Effort & Inspection: normal respiratory effort Auscultation: clear to auscultation bilaterally, no rhonchi and no wheezes Percussion: percussion normal Cardio Palpation: normal PMI Rate: regular rate Rhythm: regular rhythm Heart sounds: no gallops and no murmurs Peripheral pulses: Peripheral pulses 2+ throughout GI Palpation (GI): Soft to palpation, nontender, No hepatosplenomegaly present and no masses Auscultation: normal bowel sounds Back/Spine/Pelvis Thoracic/Lumbar Spine: thoracic and lumbar spine normal to inspection Skin General skin exam: no rashes or lesions noted Neuro General: patient oriented x3 and no focal motor deficits Cranial nerves: Yes CN's II-XII intact bilaterally Extrem General: Yes normal to inspection, No no joint enlargement (Both knees are tender and slightly swollen.), Yes no clubbing, cyanosis or edema and Yes no calf tenderness Psych Appearance: grossly normal and well kempt Speech and movement: Normal speech and movement present Results Reviewed Results Reviewed: Compliance report is reviewed and he has used 30/30 nights, 100%. Average use it per night. 7 hours 32 minutes There is no significant. Air leak Residual AHI 0.5 Assessment & Plan Assessment & Plan (1) Obesity: Comment: HE IS MODERATELY OBESE No further weight loss, He is not in any specific weight reduction program. Code(s): E66.9 - Obesity, unspecified Category: Medical Plan: Talked to him about the weight and do discussed about cutting down the calories intake, Also talked to him about walking daily however because of his knee problem, he can not walk too long. (2) CAITY (obstructive sleep apnea): Comment: Patient had severe obstructive sleep apnea with total sleep time AHI 38. It is well treated with the CPAP. Patient has been using CPAP very regularly. And sleeps good. Code(s): G47.33 - Obstructive sleep apnea (adult) (pediatric) Category: Medical Plan: Commended for good compliance and advised to keep on using CPAP every night. Coding Level of Care Code Est Pt Level 3 (56139) Diagnoses Obesity E66.9 CAITY (obstructive sleep apnea) G47.33
[2024-08-16 13:56] VITALS: BP 102/78; PULSE 103; O2SAT 97; BMI 35.7
== END 2024-08-16 14:26 | disposition home or self-care (01) ==
PROVIDERS: PCP Internal Medicine; Visit Provider Internal Medicine
DX: E66.9 Obesity, unspecified (principal); G47.33 Obstructive sleep apnea (adult) (pediatric)
CPT/HCPCS: 99213

== ENCOUNTER 2024-09-10 10:42 | Outpatient (REF) | payer OTHER, SELFPAY ==
[2024-09-10 11:29] LABS: MANUAL DIFF FLAG NO
[2024-09-10 11:31] LABS: Basophils Absolute Auto 0.1 X10*3/uL (0.0-0.2); Basophils Percent Auto 0.7 % (0-2); Eosinophils Absolute Auto 0.3 X10*3/uL (0.0-0.4); Eosinophils Percent Auto 3.2 % (0-4); Hematocrit 52.1 % (42.0-52.0); Hemoglobin 17.3 g/dl (14.0-18.0); Imm Gran Abs Auto 0.04 X10*3/uL (0.00-0.03); Imm Gran Pct Auto 0.5 % (0.0-0.4); Lymphocytes Absolute Auto 2.4 X10*3/uL (1.2-4.9); Lymphocytes Percent Auto 29.1 % (20-40); Mean Corpuscular HGB Conc 33.2 g/dl (31.0-36.0); Mean Corpuscular Hemoglobin 29.3 pg (27.0-33.0); Mean Corpuscular Volume 88.2 fL (80.0-98.0); Mean Platelet Volume 9.9 fL (9.4-12.4); Monocytes Absolute Auto 0.4 X10*3/uL (0.1-1.2); Monocytes Percent Auto 5.4 % (2-11); Neutrophils Percent Auto 61.1 % (45-73); Platelet Count 239 X10*3/uL (160-400); Red Blood Count 5.91 X10*6/uL (4.60-5.80); Red Cell Distribution Width 12.9 % (11.0-16.0); White Blood Count 8.2 X10*3/uL (4.8-10.8)
[2024-09-10 11:43] LABS: Estimated Average Glucose 246 mg/dL; Hemoglobin A1c % 10.2 % (<6.0)
[2024-09-10 12:15] LABS: Alanine Aminotransferase 39 U/L (0-40); Albumin Level 4.4 g/dL (3.5-5.0); Alkaline Phosphatase 161 U/L (39-117); Anion Gap 13 (12-20); Aspartate Amino Transferase 28 U/L (5-37); Bilirubin Total 1.4 mg/dL (0.0-1.0); Blood Urea Nitrogen 21 mg/dL (9-16); Calcium 9.5 mg/dL (8.4-10.2); Carbon Dioxide 25 mmol/L (22-29); Chloride 102 mmol/L (96-108); Cholesterol 228 mg/dL (<200); Estimated Glomerular Filt Rate 59; Ferritin 470 ng/mL (20-250); Glucose Fasting 248 mg/dL (60-99); HDL Cholesterol 34 mg/dL (>40); Iron 80 mcg/dL (45-160); Percent Iron Saturation 29 % (15-50); Potassium 4.4 mmol/L (3.3-5.1); Sodium 136 mmol/L (135-145); Total Iron Binding Capacity 273 mcg/dL (228-428); Total Protein 7.3 g/dL (6.5-8.0); Triglycerides 468 mg/dL (<150); Unsaturated Iron Binding 193 ug/dL
[2024-09-10 12:36] LABS: Creatinine Urine 70.31 mg/dL; Microalbum/Creatinine Ratio Ur 419.5 ug/mg cr (<30)
== END 2024-09-10 10:43 | disposition home or self-care (01) ==
LOC: HO.10HDL 10:42
PROVIDERS: Visit Provider Internal Medicine
DX: E11.22 Type 2 diabetes mellitus with diabetic chronic kidney disease (principal); I12.9 Hypertensive chronic kidney disease with stage 1 through stage 4 chronic kidney disease, or unspecified chronic kidney disease; N18.9 Chronic kidney disease, unspecified; K21.9 Gastro-esophageal reflux disease without esophagitis; E78.00 Pure hypercholesterolemia, unspecified
CPT/HCPCS: 36415; 80053; 80061; 82043; 82570; 82728; 83036; 83540; 85025

== ENCOUNTER 2025-01-20 10:09 | Outpatient (REF) | payer OTHER, SELFPAY ==
[2025-01-20 10:27] LABS: MANUAL DIFF FLAG NO
[2025-01-20 10:59] LABS: Basophils Absolute Auto 0.1 X10*3/uL (0.0-0.2); Basophils Percent Auto 0.8 % (0-2); Eosinophils Absolute Auto 0.3 X10*3/uL (0.0-0.4); Eosinophils Percent Auto 3.9 % (0-4); Hematocrit 48.2 % (42.0-52.0); Hemoglobin 16.2 g/dl (14.0-18.0); Imm Gran Abs Auto 0.03 X10*3/uL (0.00-0.03); Imm Gran Pct Auto 0.4 % (0.0-0.4); Lymphocytes Absolute Auto 2.3 X10*3/uL (1.2-4.9); Lymphocytes Percent Auto 32.2 % (20-40); Mean Corpuscular HGB Conc 33.6 g/dl (31.0-36.0); Mean Corpuscular Hemoglobin 29.1 pg (27.0-33.0); Mean Corpuscular Volume 86.5 fL (80.0-98.0); Mean Platelet Volume 9.5 fL (9.4-12.4); Monocytes Absolute Auto 0.4 X10*3/uL (0.1-1.2); Monocytes Percent Auto 5.6 % (2-11); Neutrophils Absolute Auto 4.1 x10*3/uL (2.0-8.3); Neutrophils Percent Auto 57.1 % (45-73); Platelet Count 214 X10*3/uL (160-400); Red Blood Count 5.57 X10*6/uL (4.60-5.80); White Blood Count 7.1 X10*3/uL (4.8-10.8)
[2025-01-20 11:16] LABS: Appearance Urine Clear; Color Urine Yellow; Glucose Urine UA >=1000 mg/dL (Negative); Leukocyte Esterase Urine Negative (Negative); Nitrite Urine Negative (Negative); PH 5.5 (5.0-9.0); Specific Gravity - Urine >= 1.030 (1.005-1.025); UMIC TRIGGER UA YES; Urine Blood Negative (Negative); Urine Ketones Negative (Negative); Urine Protein 30 (1+) mg/dL (Neg-Trace)
--- OUTSIDE RECORDS SUMMARY | 2025-01-20 11:21 | XMS_ITS | Encounter Summary ---
Author Organization [facility] Address [address] [place] [phone] Phone Care Team Providers Care Projection Welding Machine Operator Name Role Phone Oly Mao DO Primary Care Provider [phone] Reason for Visit * Reason Comments Persistent proteinuria Encounter Details Date Type Department Care Team (Late st Contact Info) Description 01/19/2025 1:45 PM EDT Office Visit [facility] [address] [phone] Yariel Braden MD [address] [phone] Stage 3a chronic kidney disease (HCC) (Primary Dx); Type 2 diabetes mellitus with diabetic chronic kidney disease (HCC); Persistent proteinuria; Donor nephrectomy Social History Tobacco Use Types Packs/Day Years Used Date Smoking Tobacco: Former Cigarettes Alcohol Use Standard Drinks/Week Comments Never 0 (1 standard drink = 0.6 oz pur e alcohol) Sex and Gender Information Value Date Recorded Sex Assigned at Not on file Legal Sex Male 2:36 PM EST Gender Identity Not on file Sexual Orientation Not on file documented as of this encounter Last Filed Vital Signs Vital Sign Reading Time Taken Comments Blood Pressure 128/70 01/19/2025 1:37 PM EDT Pulse 81 01/19/2025 1:37 PM EDT Temperature - - Respiratory Rate - - Oxygen Saturation 97% 01/19/2025 1:37 PM EDT Inhaled Oxygen Concentration - - Weight 100 kg (221 lb 3.2 oz) 01/19/2025 1:37 PM EDT Height - - Body Mass Index - - documented in this encounter Patient Instructions * Patient Instructions* Yariel Braden MD - 01/19/2025 1:45 PM EDT No NSAIDS - Do not take non-steroidal anti-inflammatory medications (NSAIDS) such as Ibuprofen (Advil, Motrin, etc), Naproxen (Aleve, etc), Celecoxib (Celebrex) or Ketoprofen. These common arthritis medications can cause permanent kidney damage or worsen your kidney damage. For mild occasional pain, Acetaminophen (Tylenol, etc) is safe for your kidneys. Sodium and Your CKD Diet: How to Spice Up Your Cooking What is sodium? Sodium is a mineral found naturally in foods and is the major part of table salt. What are the effects of eating too much sodium? When your kidneys are not healthy, extra sodium and fluid build up in your body. This can cause swollen ankles, puffiness, a rise in blood pressure, shortness of breath, and/or fluid around your heart and lungs. See the following table for suggestions on how to reduce sodium in your diet. LIMIT THE [AMOUNT OF... FOOD TO LIMIT BECAUSE OF THEIR HIGH SODIUM CONTENT ACCEPTABLE SUBSTITUTES SALT & SALT SEASONINGS Table salt Seasoning salt Garlic salt Onion salt Celery salt Lemon pepper Lite salt Meat tenderizer Bouillon cubes Flavor enhancers Fresh garlic, fresh onion, garlic powder, onion powder, black [pepper, lemon juice, low-sodium/salt-free seasoning blends, vinegar SALTY FOODS Barbecue sauce Steak sauce Soy sauce Teriaky sauce Oyster sauce Salted Snacks such as Crackers Potato chips Heflin chips Pretzels Tortilla chips Nuts Popcorn Dunklin seeds Homemade or low- sodium sauces and salad dressings; Vinegar, dry mustard, unsalted popcorn, pretzels, tortilla or corn chips Cured Foods Ham Salt pork Jiang Sauerkraut Pickles, pickle relish Lox & Ortiz Olives Fresh beef, veal, pork, poultry, fish, eggs [place] [employer] Hot Dogs Cold cuts, deli meats Pastrami Sausage Corned beef Spam Low-salt deli meats PROCESSED FOODS Buttermilk Cheese Canned: Soups Tomato products Vegetable juices Canned vegetables Convenience Foods such as: TV Dinners Canned raviolis Antonito Macaroni & Cheese Spaghetti Frozen prepared foods Fast foods Natural cheese (1-2 oz Per week) Homemade or polina,1- sodium soups, canned food without added salt Homemade casseroles without added salt, made with fresh or raw vegetables, fresh meat, raquel, pasta, or unsalted canned vegetables Some salt or sodium is needed for body water balance. But when your kidneys lose the ability to control sodium and water balance, you may experience the following: thirst fluid gain high blood pressure discomfort during dialysis By using less sodium in your diet, you can control these problems. Hints to keep your sodium intake down Cook with herbs and spices instead of salt. (Refer to Spice Up Your Cooking section for further suggestions.) Read food labels and choose those foods low in sodium. Avoid salt substitutes and specialty low-sodium foods made with salt substitutes because they are high in potassium. When eating out, ask for meat or fish without salt. Ask for gravy or sauce on the side; these may contain large amounts of salt and should be used in small amounts . Limit use of canned, processed and frozen foods. Some information about reading labels Understanding the terms: Sodium Free - Only a trivial amount of sodium per serving. Very Low Sodium - 35 mg or less per serving. Low Sodium - 140 mg or less per serving. Reduced Sodium - Foods in which the level of sodium is reduced by 25%. Light or Lite in Sodium - Foods in which the sodium is reduced by at least 50% . Simple rule of thumb : If salt is listed in the first five ingredients, the item is probably too high in sodium to use. All food labels now have milligrams (mg) of sodium listed. Follow these steps when reading the sodiwn information on the label: 1. Know how much sodium you are allowed each day. Remember that there are 1000 milligrams (mg) in 1gram. For [id number], if your diet prescription is 2 grams of sodium , your limit is 2000 milligrams per day. Consider the sodium value or other food to be eaten during the day. 2. Look at the package label. Check the serving size. Nutrition values are expressed per ivonne g. How does this compare to your total daily allowance? If the sodium level is 500 mg or more per serving, the item is not a good choice. 3. Compare labels of similar products. Select the lowest sodium level for the same serving size. How to Spice Up Your Cooking Giving up salt does not mean giving up flavor. Learn to season your food with herbs and spices. Be creative and experiment for a new and exciting flavor. What kinds of spices and herbs should I use instead of salt to add flavor? Try the following spices with the foods listed. Allspice: Use with beef, fish, beets, cabbage, canots, peas, fruit. Basil: Use with beef, pork, most vegetables. Rohwer Petronila: Use with beef, pork, most vegetables. [place]: Use with beef, pork, green beans, cauliflower, cabbage, beets, asparagus, and in dips and marinades. Cardamom: Use with fruit and in baked goods. Mckeon: Use with beef, chicken, pork, fish, green beans, carrots and in marinades. Dill: Use with beef, chicken, green beans, cabbage, carrots, peas and in dips. : Use with beef, chicken, pork, green beans, cauliflower and eggplant. Marjoram: Use with beef, chicken, pork, green beans, cauliflower and eggplant. Katherine: Use with chicken, pork, cauliflower, peas and in marinades. Thyme: Use with beef, chicken, pork, fish, green beans, beets and carrots. Parveen: Use with chicken, pork, eggplant and in dressing. Tarragon: Use with fish, chicken, asparagus, beets, cabbage, cauliflower and in marinades. Tips for cooking with herbs and spices Purchase spices and herbs in small amounts . When they sit on the shelf for years they lose their flavor. Use no more than ?? teaspoon of dried spice (?? of fresh) per pound of meat. Add ground spices to food about 15 minutes before the end of the cooking period. Add whole spices to food at least one hour before the end of the cooking period. Combine herbs with oil or butter, set for 30 minutes to bring out their flavor, then brush on foodswhile they cook, or brush meat with oil and sprinkle herbs one hour before coolcing. Crush dried herbs before adding to foods. Can I use salt substitutes? Caution! If you are told to limit potassium in your diet, be very cautious about using salt substitutes because most of them contain some form of potassium. Check with your doctor or dietitian beforeusing and salt substitute. Mathews and create your own seasoning containing those spices that you like. If you would like to become a volunteer and find out more about what's happening where you live, contact your local [facility] Affiliate. Blood pressure monitoring education: Monitor home blood pressure values after sitting for 5 minutes with back and arm support. Keep a log. Bring your log and blood pressure cuff to your next visit. documented in this encounter Progress Notes * Yariel Braden MD - 01/19/2025 1:45 PM EDT Images from the original note were not included. Patient Name: Aravind Bautista, Male Date of : 1980, 44 y.o. Date: 01/19/25 [] New Patient [x] Established Patient [] New Hospital Follow Up [] Established Hospital Follow Up [] Telemed Visit [] H&P Referring MD: No primary care provider on file. PCP: Oly Mao DO Reason For Visit CKD 3, DM, HTN, Solitary Kidney Aravind Bautista is a 44 y.o. male seen today in f/u for CKD 3(in setting of DM, HTN and soltary func kidney. Overall doing well. No new med issues Meds the same Scr 1.3-1.4 range past 2 yrs No recent LABS Renal History PT donated a kidney to his sister 18 years ago ( he is unaware of the cause of her ESRD). Denies chest pain or shortness of breath. No blood in the urine or difficulties urinating. Complains of mild arthritic complaints but avoids use of NSAIDs. The following portions of the patient's chart were reviewed in this encounter and updated as appropriate: Allergies Meds Problems Med Hx Surg Hx Fam Hx Constitutional: Negative for chills and fever. Respiratory: Negative for cough and shortness of breath. Cardiovascular: Negative for chest pain, palpitations and leg swelling. Gastrointestinal: Negative for abdominal pain, nausea and vomiting. Genitourinary: Negative for dysuria, frequency, hematuria and urgency. Full 13 point review of systems unremarkable except as noted above. Past Medical History: Diagnosis Date Chronic kidney disease Diabetes mellitus without mention of complication, type II or unspecified type, not stated as uncontrolled (HCC) Proteinuria History reviewed. No pertinent surgical history. Social History Tobacco Use Smoking status: Former Types: Cigarettes Smokeless tobacco: Not on file Substance Use Topics Alcohol use: Never Family History Problem Relation Age of Onset Cancer Mother Diabetes Father Current Outpatient Medications Medication Sig Dispense Refill atorvastatin (LIPITOR) 10 MG tablet Dulaglutide (Trulicity) 0.75 MG/0.5ML solution pen-injector Inject under the skin Once weekly Finerenone (Kerendia) 10 MG tablet Take 10 mg by mouth 1 (one) time each day 90 tablet 3 glipiZIDE (GLUCOTROL) 10 MG tablet Take 10 mg by mouth Lantus SoloStar 100 UNIT/ML injection 38 Units lisinopril 20 MG tablet TAKE 1 TABLET BY MOUTH EVERY DAY 90 tablet 0 Dapagliflozin Propanediol (Farxiga) 10 MG tablet Take 10 mg by mouth 1 (one) time each day 90 tablet 5 No current facility-administered medications for this visit. No Known Allergies Objective: Vitals: 01/19/25 1337 BP: 128/70 BP Location: Right upper arm Patient Position: Sitting BP Cuff Size: Adult Pulse: 81 SpO2: 97% Weight: 221 lb 3.2 oz (100 kg) 126/70 Vitals reviewed. Constitutional: No distress. Cardiovascular: Normal rate, regular rhythm and normal heart sounds. He exhibits no edema. Pulmonary/Chest: Effort normal and breath sounds normal. No respiratory distress. Abdominal: Soft. There is no abdominal tenderness. No hernia. Skin: Skin is warm and dry. Psychiatric: He has a normal mood and affect. His behavior is normal. eGFR Date Value Ref Range Status 10/18/2021 53 Final No results found for: EGFRNAFR Chemistry Lab Units 04/06/24 1351 06/27/23 1019 CREATININE mg/dL 1.33 1.32 BUN mg/dL 13 13 POTASSIUM mmol/L 4.3 4.6 SODIUM mmol/L 138 139 CO2 mmol/L 22 24 CHLORIDE mmol/L 105 104 ALBUMIN g/dL 4.6 -- Bone Mineral Lab Units 04/06/24 1351 06/27/23 1019 CALCIUM mg/dL 9.4 9.7 PHOSPHORUS mg/dL 3.1 -- MAGNESIUM mg/dL 2.0 -- PTH pg/mL 103.1* -- VITAMIN D ng/mL 19.7* -- CBC Lab Units 04/06/24 1351 WBC AUTO X10*3/uL 9.3 RBC AUTO X10*6/uL 5.98* MCV fL 88.0 HEMATOCRIT % 52.6* HEMOGLOBIN g/dl 17.2 PLATELETS AUTO X10*3/uL 239 Urine Lab Units 04/06/24 1518 PROT/CREAT RATIO UR 0.51* ALB MG/G CREAT UR ug/mg cr 363.6* Urine Lab Units 04/06/24 1518 PH U 5.5 COLOR U Yellow GLUCOSE U MG/DL mg/dL >=1000* WBC UR HPF /HPF 0-5 RBC UR HPF /HPF 0-2 PLAN: Assessment & Plan 44 Y/O CKD 3 SOLITARY KIDNEY DIABETIC HYPERTENSIVE HEAVY NON-NEPHROTIC HEAVY PROTEINURIC PATIENT 1. CKD3: multifact with DN/HTN renal dis and hyperfiltration oin a solitary kidnye all playing a role 2. DM: 3. HTN: suboptimal control; goal < 130/80 4.Heavy Uprot: most c/w DN/HTN and hyperfilt all contributing ;doubt a primary GN To Maximize renal protection: - cont use BRITTA-inhibitor ( LUIS or ARB) -cont SGLT2i -cont Kerendia - optimize LDL with goal < 70 - cont to stress strict BP/BS control and avoid NSAIDS Look to add Ozempic as it now shown to provide added renal protection independent of WT loss ( FLOWtrial) PLAN: repeat labs today, cont current meds; avoid NSAIDs cont to track UACR and renal func; look toadd Ozempic after reviewinfg repeat labs form today 1. Stage 3a chronic kidney disease (HCC) 2. Type 2 diabetes mellitus with diabetic chronic kidney disease (HCC) 3. Persistent proteinuria 4. Donor nephrectomy Orders Placed This Encounter PTH, Intact Renal Function Panel Urinalysis with microscopic Urine Albumin / Creatinine Ratio Protein, Total, Random Urine w/Creatinine (Protein/Creat Ratio) Vitamin D 25 Hydroxy CBC Phosphorus Magnesium Albumin Calcium Return in about 4 months (around 05/22/2025). Yariel Braden MD documented in this encounter Plan of Treatment Upcoming Encounters Date Type Department Care Team (Late st Contact Info) Description 05/18/2025 2:00 PM EDT Office Visit [facility] [address] [phone] Yariel Braden MD [address] [phone] Pending Results Name Type Priority Associated Diagnoses Date /Time Urinalysis with microscopic Lab Routine Stage 3a chronic kidney disease (HCC) Type 2 diabetes mellitus with diabetic chronic kidney disease (HCC) Persistent proteinuria Donor nephrectomy 01/20/2025 10:48 AM EDT Scheduled Orders Name Type Priority Associated Diagnoses Orde r Schedule PTH, Intact Lab Routine Stage 3a chronic kidney disease (HCC) Type 2 diabetes mellitus with diabetic chronic kidney disease (HCC) Persistent proteinuria Donor nephrectomy Expected: 01/19/2025, Expires: 02/19/2026 Renal Function Panel Lab Routine Stage 3a chronic kidney disease (HCC) Type 2 diabetes mellitus with diabetic chronic kidney disease (HCC) Persistent proteinuria Donor nephrectomy Expected: 01/19/2025, Expires: 02/19/2026 Urine Albumin / Creatinine Ratio Lab Routine Stage 3a chronic kidney disease (HCC) Type 2 diabetes mellitus with diabetic chronic kidney disease (HCC) Persistent proteinuria Donor nephrectomy Expected: 01/19/2025, Expires: 02/19/2026 Protein, Total, Random Urine w/Creatinine (Protein/Creat Ratio) Lab Routine Stage 3a chronic kidney disease (HCC) Type 2 diabetes mellitus with diabetic chronic kidney disease (HCC) Persistent proteinuria Donor nephrectomy Expected: 01/19/2025, Expires: 02/19/2026 Vitamin D 25 Hydroxy Lab Routine Stage 3a chronic kidney disease (HCC) Type 2 diabetes mellitus with diabetic chronic kidney disease (HCC) Persistent proteinuria Donor nephrectomy Expected: 01/19/2025, Expires: 02/19/2026 CBC Lab Routine Stage 3a chronic kidney disease (HCC) Type 2 diabetes mellitus with diabetic chronic kidney disease (HCC) Persistent proteinuria Donor nephrectomy Expected: 01/19/2025, Expires: 02/19/2026 Phosphorus Lab Routine Stage 3a chronic kidney disease (HCC) Type 2 diabetes mellitus with diabetic chronic kidney disease (HCC) Persistent proteinuria Donor nephrectomy Expected: 01/19/2025, Expires: 02/19/2026 Magnesium Lab Routine Stage 3a chronic kidney disease (HCC) Type 2 diabetes mellitus with diabetic chronic kidney disease (HCC) Persistent proteinuria Donor nephrectomy Expected: 01/19/2025, Expires: 02/19/2026 Albumin Lab Routine Stage 3a chronic kidney disease (HCC) Type 2 diabetes mellitus with diabetic chronic kidney disease (HCC) Persistent proteinuria Donor nephrectomy Expected: 01/19/2025, Expires: 02/19/2026 Calcium Lab Routine Stage 3a chronic kidney disease (HCC) Type 2 diabetes mellitus with diabetic chronic kidney disease (HCC) Persistent proteinuria Donor nephrectomy Expected: 01/19/2025, Expires: 02/19/2026 documented as of this encounter Procedures Procedure Name Priority Date/Time Associated Diagnosis Comments URINALYSIS WITH MICROSCOPIC Routine 01/20/2025 10:48 AM EDT Stage 3a chronic kidney disease (HCC) Type 2 diabetes mellitus with diabetic chronic kidney disease (HCC) Persistent proteinuria Donor nephrectomy documented in this encounter Visit Diagnoses Diagnosis Stage 3a chronic kidney disease (HCC)- Primary Type 2 diabetes mellitus with diabetic chronic kidney disease (HCC) Persistent proteinuria Donor nephrectomy documented in this encounter Care Teams Projection Welding Machine Operator Relationship Specialty Start Date End Date Oly Mao DO [facility] [address] [place] [address] PCP - General Family Medicine 01/19/25 documented as of this encounter
--- OUTSIDE RECORDS SUMMARY | 2025-01-20 11:21 | XMS_ITS | Clinical Summary ---
Author Organization [facility] Address [address] [phone] Phone Care Team Providers Care Sewing Machine Operator Zipper Name Role Phone Oly Mao Primary Care Provider [phone] Allergies No known active allergies Medications Lantus SoloStar 100 UNIT/ML injection 38 Units 10/24/2021 Active glipiZIDE (GLUCOTROL) 10 MG tablet Take 10 mg by mouth 11/30/2021 Active Dulaglutide (Trulicity) 0.75 MG/0.5ML solution pen-injector Inject under the skin Once weekly Active atorvastatin (LIPITOR) 10 MG tablet 06/06/2022 Active Dapagliflozin Propanediol (Farxiga) 10 MG tablet Take 10 mg by mouth 1 (one) time each day 90 tablet 5 01/20/2024 Active lisinopril 20 MG tablet TAKE 1 TABLET BY MOUTH EVERY DAY 90 tablet 02/18/2024 Active Finerenone (Kerendia) 10 MG tabletIndication s:Type 2 diabetes mellitus with diabetic chronic kidney disease (HCC),Stage 3a chronic kidney disease (HCC) Take 10 mg by mouth 1 (one) time each day 90 tablet 3 11/12/2024 Active Active Problems Problem Noted Date Diagnosed Date Donor nephrectomy 01/19/2025 Stage 3a chronic kidney disease 06/11/2022 Proteinuria 12/13/2021 Chronic kidney disease, stage 2 (mild) 2 Type 2 diabetes mellitus wit h diabetic chronic kidney disease 12/13/2021 Encounters Date Type Department Care Team Description 01/20/2025 Orders Only [facility] [address] [phone] Yariel Braden MD 01/19/2025 1:45 PM EDT Office Visit [facility] [address] [phone] Yariel Braden MD Stage 3a chronic kidney disease (HCC) (Primary Dx); Type 2 diabetes mellitus with diabetic chronic kidney disease (HCC); Persistent proteinuria; Donor nephrectomy 11/12/2024 Refill [facility] [address] [phone] OmarFrancesca Type 2 diabetes mellitus with diabetic chronic kidney disease (HCC); Stage 3a chronic kidney disease (HCC) from Last 3 Months Family History Medical History Relation Comments Diabetes Father Cancer Mother Relation Status Comments Father Alive Mother Social History Tobacco Use Types Packs/Day Years Used Date Smoking Tobacco: Former Cigarettes Tobacco Cessation:Counseling Given: Not Answered Alcohol Use Standard Drinks/Week Comments Never 0 (1 standard drink = 0.6 oz pur e alcohol) Sex and Gender Information Value Date Recorded Sex Assigned at Not on file Legal Sex Male 2:36 PM EST Gender Identity Not on file Sexual Orientation Not on file Last Filed Vital Signs Vital Sign Reading Time Taken Comments Blood Pressure 128/70 01/19/2025 1:37 PM EDT Pulse 81 01/19/2025 1:37 PM EDT Temperature - - Respiratory Rate - - Oxygen Saturation 97% 01/19/2025 1:37 PM EDT Inhaled Oxygen Concentration - - Weight 100 kg (221 lb 3.2 oz) 01/19/2025 1:37 PM EDT Height - - Body Mass Index - - Plan of Treatment Upcoming Encounters Date Type Department Care Team (Late st Contact Info) Description 05/18/2025 2:00 PM EDT [facility] [address] [phone] Yariel Braden MD [address] [phone] Health Maintenance Due Date Last Done Comments Hepatitis B Vaccine (1 of 3 - 19+ 3-dose series) 2000 Pneumococcal Vaccine: Peds ( 0 to 5 Years) and At-Risk Patients (6 to 49 Years) (1 of 2 - PCV) 2000 Diabetes: Ophthalmology Exam 12/13/2021 Diabetes: Pedal Pulse Checked 12/13/2021 Diabetes: Sensory Foot Exam 12/13/2021 Diabetes: Visual Foot Exam 12/13/2021 Diabetes: Hemoglobin A1C 11/12/2022 022, 06/04/2022, 02/20/2022, Additional history exists Influenza Vaccine (Season Ended) 2025 Procedures Procedure Name Priority Date/Time Associated Diagnosis Comments URINALYSIS WITH MICROSCOPIC Routine 01/20/2025 10:48 AM EDT Stage 3a chronic kidney disease (HCC) Type 2 diabetes mellitus with diabetic chronic kidney disease (HCC) Persistent proteinuria Donor nephrectomy CBC AND DIFFERENTIAL Routine 01/20/2025 10:25 AM EDT EXT RESULT ENTRY Routine 08/13/2022 from Last 3 Months or Most Recently Relevant to Health Maintenance Results * CBC and Differential (01/20/2025 10:25 AM EDT) WBC 7.1 4.8 - 10.8 X10*3/uL See order comments RBC 5.57 4.60 - 5.80 X10*6/uL See order comments Hgb 16.2 14.0 - 18.0 g/dl See order comments Hematocrit 48.2 42.0 - 52.0 % See order comments MCV 86.5 80.0 - 98.0 fL See order comments MCH 29.1 27.0 - 33.0 pg See order comments MCHC 33.6 31.0 - 36.0 g/dl See order comments RDW 13.0 11.0 - 16.0 % See order comments Platelets 214 160 - 400 X10*3/uL See order comments MPV 9.5 9.4 - 12.4 fL See order comments Neutrophils % Auto 57.1 45 - 73 % See order comments Immature Granulocytes 0.4 0.0 - 0.4 % See order comments Lymphocytes Relative 32.2 20 - 40 % See order comments Monocytes 5.6 2 - 11 % See order comments Eosinophils Relative 3.9 0 - 4 % See order comments Basophils Relative 0.8 0 - 2 % See order comments nRBC Count 0.0 0.0 - 0.2 /100WBC See order comments Neutrophils Absolute 4.1 2.0 - 8.3 x10*3/uL See order comments Immature Grans (Absolute) 0.03 0.00 - 0.03 X10*3/uL See order comments Lymphocytes Absolute 2.3 1.2 - 4.9 X10*3/uL See order comments Monocytes Absolute 0.4 0.1 - 1.2 X10*3/uL See order comments Eosinophils Absolute 0.3 0.0 - 0.4 X10*3/uL See order comments Basophils Absolute 0.1 0.0 - 0.2 X10*3/uL See order comments NRBC Absolute 0.000 0.0 - 0.012 X10*3/uL See order comments 01/20/2025 10:2 5 AM EDT 01/20/2025 10:25 AM EDT Yariel Braden MD LAB BLOOD ORDERABLES Final Re sult [facility] See order comments [place] [address] * (ABNORMAL) EXT RESULT ENTRY (08/13/2022) WBC 9.4 3.3 - 10.0 10*3/ML Red Blood Cell Count 5.97 Hemoglobin 17.1 13.5 - 17.5 Hematocrit 52.8 41.0 - 53.0 Platelets 256 150 - 399 10*3/UL MCV 88.4 82.0 - 108.0 Sodium 139 137 - 147 Potassium 4.2 3.4 - 5.5 Chloride 103.0 99.0 - 108.0 Anion Gap 16 <=30 MMOL/L BUN 16 4 - 21 mg/dL Creatinine 1.40(A) 0.60 - 1.30 mg/dL Albumin 4.6 3.5 - 5.0 g/dL Calcium 9.5 8.7 - 10.7 mg/dL Hemoglobin A1C 7.7(A) 4.0 - 6.0 Triglycerides 286 08/13/2022 Richar Provider LAB BLOOD ORDERABLES Suzan l Result from Last 3 Months or Most Recently Relevant to Health Maintenance Insurance [facility] Care Teams Sewing Machine Operator Zipper Relationship Specialty Start Date End Date Oly Mao DO [facility] PCP - General Family Medicine 01/19/25
--- OUTSIDE RECORDS SUMMARY | 2025-01-20 11:21 | XMS_ITS | Clinical Summary ---
Author Organization [facility] Address [address] [place] [address] Care Team Providers Care Jewel Diameter Gauger Name Role Phone Unavailable Primary Care Provider Unavailabl e Social History Tobacco Use Types Packs/Day Years Used Date Smoking Tobacco: Never Assessed Sex and Gender Information Value Date Recorded Sex Assigned at Not on file Legal Sex Male 11:34 AM EDT Gender Identity Not on file Sexual Orientation Not on file Plan of Treatment Health Maintenance Due Date Last Done Comments Hepatitis C Virus Screening 1981 HIV Screening 1994 DTaP/Tdap/Td Vaccines (1 - Tdap) 2000 Hepatitis B Vaccines (1 of 3 - 19+ 3-dose series) 2000 COVID-19 Vaccine (2023-2 5 season) 2024 HPV Vaccines Aged Out No longer eligi ble based on patient's age to complete this topic Pneumococcal Vaccine: Pediat winnie (0-5 Years) and At-Risk Patients (6 to 49 Years) Aged Out No longer eligible b ased on patient's age to complete this topic
--- OUTSIDE RECORDS SUMMARY | 2025-01-20 11:21 | XMS_ITS | Encounter Summary ---
Author Organization [facility] Address [address] [address] Phone Care Team Providers Care Life Advisor Name Role Phone Oly Mao DO Primary Care Provider [phone] Encounter Details Date Type Department Care Team ([facility] Contact Info) Description 01/20/2025 Orders Only [facility] [address] [address] Yariel Braden MD [address] [place] [phone] Social History Tobacco Use Types Packs/Day Years [...] as of this encounter Plan of Treatment Upcoming Encounters Date Type Department Care Team (Late Contact Info) Description 05/18/2025 2:00 PM EDT Office Visit [facility] [address] [phone] Yariel Braden MD [address] [address] documented as of this encounter Procedures Procedure Name Priority Date/Time Associated Diagnosis Comments CBC AND DIFFERENTIAL Routine 01/20/2025 10:25 AM EDT documented in this encounter Results * CBC and Differential (01/20/2025 10:25 [...] 5 AM EDT 01/20/2025 10:25 AM EDT us Yariel Braden MD LAB BLOOD ORDERABLES Final Re sult [facility] See order comments [place] [address] documented in this encounter Visit Diagnoses Not on filedocumented in this encounter Care Teams Life Advisor Relationship Specialty Start Date End Date Oly Mao DO [facility] [address] [place] [address] PCP - General Family Medicine 01/19/25 documented as of this encounter
[2025-01-20 11:23] LABS: Bacteria Urine None Seen (None Seen); Hyaline Casts Urine 0-2 /LPF (0-2); RBC Urine 0-2 /HPF (0-2); Squamous Epithelial Cell Urine 0-2 /HPF (0-2); WBC Urine 0-5 /HPF (0-5)
[2025-01-20 11:27] LABS: Parathyroid Hormone Intact 104.9 pg/mL (8.7-77.1)
[2025-01-20 11:30] LABS: Albumin Level 4.2 g/dL (3.5-5.0); Anion Gap 13 (12-20); Blood Urea Nitrogen 16 mg/dL (9-16); Carbon Dioxide 25 mmol/L (22-29); Chloride 103 mmol/L (96-108); Estimated Glomerular Filt Rate 60; Potassium 4.1 mmol/L (3.3-5.1); Sodium 137 mmol/L (135-145)
[2025-01-20 11:47] LABS: Vitamin D 25-OH Total 15.3 ng/mL (>30)
[2025-01-20 12:04] LABS: Microalbum/Creatinine Ratio Ur 214.7 ug/mg cr (<30); Protein/Creatinine Ratio, Ur 0.32 (<0.2); Total Protein Urine Random 27 mg/dL (<12)
== END 2025-01-20 10:10 | disposition home or self-care (01) ==
LOC: HO.LAB 10:09
PROVIDERS: PCP Physician Assistant; Visit Provider Internal Medicine Nephrology
DX: N18.31 Chronic kidney disease, stage 3a (principal); E11.22 Type 2 diabetes mellitus with diabetic chronic kidney disease; R80.1 Persistent proteinuria, unspecified; Z52.4 Kidney donor
CPT/HCPCS: 36415; 80051; 81001; 82040; 82043; 82306; 82310; 82565; 82570; 83735; 83970; 84100; 84156; 84520; 85025

== ENCOUNTER 2025-02-02 15:40 | Outpatient (AMB) | payer OTHER, SELFPAY ==
--- OUTSIDE RECORDS SUMMARY | 2025-02-02 15:44 | XMS_ITS | Clinical Summary ---
Author Organization [facility] Address [address] [place] [address] Care Team Providers Care Academic Affairs Manager Name Role Phone Unavailable Primary Care Provider [...]
--- OUTSIDE RECORDS SUMMARY | 2025-02-02 15:44 | XMS_ITS | Clinical Summary ---
Author Organization [facility] Address [address] [address] Phone Care Team Providers Care Auto Detailer Name Role Phone Oly Mao Primary Care Provider [phone] Allergies No known active allergies Medications Lantus [...] Orders Only [facility] [address] [phone] Yariel Braden MD 01/19/2025 1:45 PM EDT Office Visit [facility] [address] [phone] Yariel Braden MD Stage 3a chronic kidney disease (HCC) (Primary Dx); Type 2 diabetes mellitus with diabetic chronic kidney disease (HCC); Persistent proteinuria; Donor nephrectomy 11/12/2024 Refill [facility] [address] [phone] OmarFarncesca Type 2 diabetes mellitus with diabetic chronic [...] Associates [facility] [address] [phone] Yariel Braden MD [address] [phone] Health Maintenance Due Date Last [...] Procedure Name Priority Date/Time Associated Diagnosis Comments ALBUMIN, URINE, RANDOM Routine 01/20/2025 10:48 AM EDT PROTEIN / CREATININE RATIO, URINE Routine 01/20/2025 10:48 AM EDT Stage 3a chronic kidney disease (HCC) Type 2 diabetes mellitus with diabetic chronic kidney disease (HCC) Persistent proteinuria Donor nephrectomy URINALYSIS WITH MICROSCOPIC Routine 01/20/2025 10:48 AM EDT Stage 3a chronic kidney disease (HCC) Type 2 diabetes mellitus with diabetic chronic kidney disease (HCC) Persistent proteinuria Donor nephrectomy CREATININE, BLOOD Routine 01/20/2025 10: 25 AM EDT BUN Routine 01/20/2025 10:25 AM EDT ELECTROLYTE PANEL Routine 01/20/2025 10: 25 AM EDT PTH, INTACT (HC) Routine 01/20/2025 10:2 5 AM EDT CBC AND DIFFERENTIAL Routine 01/20/2025 10:25 AM EDT CALCIUM Routine 01/20/2025 10:25 AM EDT Stage 3a chronic kidney disease (HCC) Type 2 diabetes mellitus with diabetic chronic kidney disease (HCC) Persistent proteinuria Donor nephrectomy ALBUMIN Routine 01/20/2025 10:25 AM EDT Stage 3a chronic kidney disease (HCC) Type 2 diabetes mellitus with diabetic chronic kidney disease (HCC) Persistent proteinuria Donor nephrectomy MAGNESIUM Routine 01/20/2025 10:25 AM EDT Stage 3a chronic kidney disease (HCC) Type 2 diabetes mellitus with diabetic chronic kidney disease (HCC) Persistent proteinuria Donor nephrectomy PHOSPHATE ( PHOSPHORUS) Routine 01/20/2025 10:25 AM EDT Stage 3a chronic kidney disease (HCC) Type 2 diabetes mellitus with diabetic chronic kidney disease (HCC) Persistent proteinuria Donor nephrectomy VITAMIN D 25 HYDROXY Routine 01/20/2025 10:25 AM EDT Stage 3a chronic kidney disease (HCC) Type 2 diabetes mellitus with diabetic chronic kidney disease (HCC) Persistent proteinuria Donor nephrectomy EXT RESULT ENTRY Routine 08/13/2022 from Last 3 Months or Most Recently Relevant to Health Maintenance Results * (ABNORMAL) Protein, Total, Random Urine w/Creatinine (Protein/Creat Ratio) (01/20/2025 10:48 AM EDT) Protein Urine Random 27(H) <12 mg/dL See order comments Protein/Creati nine Ratio, Urine 0.32(H) <0.2 See order comments Comment: The spot urine protein:creatinine ratio may increase to 0.3 during normal . Urine specimen (specimen) Urine specimen obtained by clean catch procedure / Unknown 01/20/2025 10:48 AM EDT 01/20/2025 10:48 AM EDT us Yariel Braden MD LAB URINE ORDERABLES Final Re sult [place] See order comments [place] [address] * (ABNORMAL) Albumin, urine, random (01/20/2025 10:48 AM EDT) Creatinine, Urine 85.70 mg/dL Se e order comments Urine Microalbumin 184.0 mg/L See order comments Microalbumin/Crea tinine Ratio 214.7(H) <30 ug/mg cr See order comments Comment: ?Albumin/Creatinine Ratio Reference Ranges: ?Normal: < 30 ug/mg creatinine ?Microalbuminuria: ??30 - 300 ug/mg creatinine Clinical Albuminuria: ??> 300 ug/mg creatinine 01/20/2025 10:4 8 AM EDT 01/20/2025 10:48 AM EDT Yariel Braden MD LAB URINE ORDERABLES Final Re sult Performing Organization Address [facility] de Phone Number [facility] See order comments [place] [address] * (ABNORMAL) Urinalysis with microscopic (01/20/2025 10:48 AM EDT) Color Urine Yellow See orde r comments Appearance Urine Clear See order comments pH Urine 5.5 5.0 - 9.0 See order comments Glucose Urine >=1000(A) Negative mg/dL See order comments Blood, Urine Negative Negative See ord er comments Specific [place] Urine >=1.030(H) 1.005 - 1.025 See order comments Protein Urine 30 (1+)(A) Neg-Trace mg/dL See order comments Ketones, Urine Negative Negative mg/dL See order comments Nitrite, Urine Negative Negative See o rder comments Leukocyte Esterase Urine Negative Negative See order comments RBC, Urine 0-2 0 - 2 /HPF See orde r comments WBC 0-5 0 - 5 /HPF See order comments Squamous Epithelial, Urine 0-2 0 - 2 /HPF See order comments Bacteria, Urine None Seen None Seen See order comments Hyaline Casts, Urine 0-2 0 - 2 /LPF See order comments Urine specimen (specimen) Urine specimen obtained by clean catch procedure / Unknown 01/20/2025 10:48 AM EDT 01/20/2025 10:48 AM EDT us Yariel Braden MD LAB URINE ORDERABLES Final Re sult Performing Organization Address [facility] de Phone Number [place] See order comments [place] [address] * Creatinine (01/20/2025 10:25 AM EDT) Creatinine Serum 1.31 0.5 - 1.4 mg/dL See order comments eGFR (Calc) 60 See orde r comments Comment: Chronic Kidney Disease: ??Estimated GFR < 60 mL/min/1.73m2 Severe Kidney Disease: ??Estimated GFR < 15 mL/min/1.73m2 01/20/2025 10:2 5 AM EDT 01/20/2025 10:25 AM EDT Yariel Braden MD LAB BLOOD ORDERABLES Final Re sult Performing Organization Address [facility]/ZIP Co de Phone Number [facility] See order comments [place] [address] * (ABNORMAL) PTH, Intact (01/20/2025 10:25 AM EDT) Parathyroid Hormone, Intact 104.9(H) 8.7 - 77.1 pg/mL See order comments 01/20/2025 10:2 5 AM EDT 01/20/2025 10:25 AM EDT Yariel Braden MD LAB [id number] SOLICITED RESULTS Final Result Performing Organization Address [facility] de Phone Number [facility] See order comments [place] [address] * (ABNORMAL) Vitamin D 25 Hydroxy (01/20/2025 10:25 AM EDT) Vitamin D, 25-Hydroxy 15.3(L) >30 ng/mL See order comments Comment: Health Based Reference Values* < 20 ??ng/mL ??Deficient 20-30 ng/mL ??Insufficient > 30 ??ng/mL ??Sufficient *Musa HERNANDEZ. N Engl J Med. 2007;357:266-280 There is no well-established upper level of normal vitamin D levels. Some laboratories use 50 ng/mL as an upper limit of normal. However, toxicity is patient-dependent and may occur at any level. Careful correlation with the patient's presentation is necessary and, if there is concern for vitamin D toxicity, treatment should be considered irrespective of the serum level. Care must be taken in interpreting Vitamin D results from different laboratories and methodologies. ??Published data demonstrated that results from patients undergoing hemodialysis may show a negative bias when tested with various automated 25-OH vitamin D assays when compared to LC-MS/MS. When testing samples from patients whose predominant form of Vitamin D is Vitamin D2, such as patients receiving Vitamin D2 supplementation, results that are subtherapeutic should be confirmed with another method such as LC-MS/MS. Blood specimen (specimen) Venous blood / Unknown 01/20/2025 10:25 AM EDT 01/20/2025 10:25 AM EDT us Yariel Braden MD LAB BLOOD ORDERABLES Final Re sult [place] See order comments [place] [address] * CBC and Differential (01/20/2025 10:25 AM [...] MD LAB BLOOD ORDERABLES Final Re sult Performing Organization Address [facility] Co de Phone Number [place] See order comments [place] [address] * BUN (01/20/2025 10:25 AM EDT) BUN 16 9 - 16 mg/dL See order comments 01/20/2025 10:2 5 AM EDT 01/20/2025 10:25 AM EDT us Yariel Braden MD LAB BLOOD ORDERABLES Final Re sult Performing Organization Address [facility] de Phone Number [place] See order comments [place] [address] * Phosphorus (01/20/2025 10:25 AM EDT) Phosphorus, Serum 3.0 2.7 - 4.5 mg/dL See order comments Blood specimen (specimen) Venous blood / Unknown 01/20/2025 10:25 AM EDT 01/20/2025 10:25 AM EDT us Yariel Braden MD LAB BLOOD ORDERABLES Final Re sult Performing Organization Address [facility] Co de Phone Number [facility] See order comments [place] [address] * Magnesium (01/20/2025 10:25 AM EDT) Magnesium 2.0 1.6 - 2.6 mg/dL See order comments Blood specimen (specimen) Venous blood / Unknown 01/20/2025 10:25 AM EDT 01/20/2025 10:25 AM EDT us Yariel Braden MD LAB BLOOD ORDERABLES Final Re sult Performing Organization Address [facility] de Phone Number [place] See order comments [place] [address] * Calcium (01/20/2025 10:25 AM EDT) Calcium 9.0 8.4 - 10.2 mg/dL See order comments Blood specimen (specimen) Venous blood / Unknown 01/20/2025 10:25 AM EDT 01/20/2025 10:25 AM EDT us Yariel Braden MD LAB BLOOD ORDERABLES Final Re sult Performing Organization Address [facility] Phone Number [place] See order comments [place] [address] * Albumin (01/20/2025 10:25 AM EDT) Albumin 4.2 3.5 - 5.0 g/dL See order comments Blood specimen (specimen) Venous blood / Unknown 01/20/2025 10:25 AM EDT 01/20/2025 10:25 AM EDT us Yariel Braden MD LAB BLOOD ORDERABLES Final Re sult Performing Organization Address [facility] Phone Number [facility] See order comments [place] [address] * Electrolyte panel (01/20/2025 10:25 AM EDT) Sodium 137 135 - 145 mmol/L See order comments Potassium 4.1 3.3 - 5.1 mmol/L See order comments Chloride 103 96 - 108 mmol/L See order comments Bicarbonate (CO2) 25 22 - 29 mmol/L See order comments Anion Gap 13 12 - 20 See order comments 01/20/2025 10:2 5 AM EDT 01/20/2025 10:25 AM EDT Yariel Braden MD LAB BLOOD ORDERABLES Final Re sult [place] See order comments [place] [address] * (ABNORMAL) EXT RESULT ENTRY (08/13/2022) WBC [...] 7.7(A) 4.0 - 6.0 Triglycerides 286 08/13/2022 Historical Provider LAB BLOOD ORDERABLES Suzan l Result from Last 3 Months or Most Recently Relevant to Health Maintenance Insurance [facility] Care Teams Auto Detailer Relationship Specialty Start Date End Date Oly Mao DO [facility] [address] [place] [address] PCP - General Family Medicine 01/19/25
--- NOTE | 2025-02-02 15:50 | A.OFFPC_ITS ---
Vital Signs 02/02/25 15:53 Height 5 ft 7 in Weight 100.698 kg BMI 34.8 BP 104/74 Respiration 14 Pulse 92 Pulse Source Pulse Oximeter Temp 97.9 F Temp Source Temporal Artery Scan Pulse Oximetry (%) 96 Oxygen Delivery Method Room Air Intake Visit Reasons: Routine Community Arts Worker Required: No Accompanied by: Self / Same As Patient Allergies No Known Allergies Allergy (Verified 02/02/25 15:53) Medication List - Last Reconciled 02/02/25 by MARY ALICE Gonsalves atorvastatin (Lipitor) 10 mg PO BEDTIME clotrimazole-betamethasone 1-0.05 % 1 appl topical BID 4 weeks dapagliflozin propanediol (Farxiga) 10 mg PO DAILY dulaglutide (Trulicity) 0.75 mg subcut QWEEK finerenone (Kerendia) 10 mg PO DAILY glipizide 10 mg PO BID insulin glargine (Lantus Solostar U-100 Insulin) units subcut lisinopril (Zestril) 20 mg PO DAILY omeprazole 40 mg PO DAILY HPI HPI Comments History of Present Illness Details 44-year-old male with history of type 2 diabetes, hyperlipidemia, hypertension, obstructive sleep apnea, GERD presents to the office today for management of chronic conditions and to establish care. He reports that despite diet modifications and use of omeprazole 20 mg daily with added famotidine, continues to experience issues with heartburn/reflux. His last hemoglobin A1c 6 months ago was 10.2%. He had been using a CGM previously and is looking to resume this. He has been checking his fasting sugar daily which typically ranges 165-180 but occasionally over 200 or 300. Very rarely has low normal readings such as 76. He does continue on Lantus 45 units twice daily, glipizide 10 mg twice daily, Farxiga, Trulicity. He is not always compliant with diabetic diet. He is trying to exercise. Has lost a significant amount of weight. He states his wharf builder is recommending Ozempic rather than Trulicity for renal support. He follows with [facility] He is compliant with antihypertensives and blood pressure is controlled at 104/74. He does tell me that he quit smoking 1 year ago. [facility] Medical History (Updated 02/02/25 @ 17:59 by MARY ALICE Gonsalves) GERD (gastroesophageal reflux disease) Diabetes Elevated cholesterol HTN (hypertension) CAITY (obstructive sleep apnea) Obesity Diabetic acidosis, type II Surgical History Hx of kidney donation Social History Patient Tobacco Use Status: Former Tobacco user Tobacco use type: Cigarette Current occupational status: employed 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 Review of Systems Const All systems reviewed & are unremarkable except as noted in HPI and below Physical exam (Primary Care) Vital Signs: Last Vital Signs Temp 97.9 F 02/02/25 15:53 Pulse 92 02/02/25 15:53 Resp 14 02/02/25 15:53 BP 104/74 02/02/25 15:53 Pulse Ox 96 02/02/25 15:53 Oxygen Delivery Method Room Air 02/02/25 15:53 BMI result Body Mass Index 34.8 Tobacco/Smoking Status: Tobacco use Status Patient Tobacco Use Status Former Tobacco user 02/02/25 15:58 Tobacco use type Cigarette 02/02/25 15:58 Const Other: Constitutional - Awake and Alert, No apparent distress Eyes - PERRLA, EOMI Cardiovascular - S1S2, RRR, No edema Respiratory - Normal lung expansion, Normal respiratory effort, No respiratory distress, CTA bilaterally Extremities - no calf tenderness bilaterally, no swelling Skin - Warm/Dry Neurological - Alert & oriented x3, Psychological - Appropriate affect Coding Level of Care Code New Pt Level 4 (37988) Complex EM visit Add On G2211 Diagnoses Diabetes E11.9 HTN (hypertension) I10 Elevated cholesterol E78.00 GERD (gastroesophageal reflux disease) K21.9 Assessment & Plan Assessment & Plan (1) Diabetes: Code(s): E11.9 - Type 2 diabetes mellitus without complications Category: Medical Plan: Previously uncontrolled with A1c of 10.4%. Updated hemoglobin A1c is ordered. He should continue Lantus 45 units twice daily, glipizide 10 mg twice daily, Farxiga, and Trulicity. He is referred to endocrinology for further management given polypharmacy and ongoing uncontrolled glucose levels. He is also referred for consideration for C GM. Recommend improving diabetic diet as well as exercise. Continue with diabetic eye exams and diabetic foot exams. (2) HTN (hypertension): Code(s): I10 - Essential (primary) hypertension Category: Medical Plan: Controlled with blood pressure 104/74. Continue lisinopril 20 mg daily. Follow low-sodium diet. (3) Elevated cholesterol: Code(s): E78.00 - Pure hypercholesterolemia, unspecified Category: Medical Plan: Lipid panel ordered, recommend this be completed fasting. Continue atorvastatin 10 mg nightly, dose to be adjusted as appropriate pending results of studies. Continue diet low in saturated fats and highly processed oils. Recommend increased exercise. (4) GERD (gastroesophageal reflux disease): Code(s): K21.9 - Gastro-esophageal reflux disease without esophagitis Category: Medical Plan: Uncontrolled. Will increase omeprazole to 40 mg daily for several weeks. Continue using Tums or Pepcid for breakthrough symptoms. Avoid known triggers. Should symptoms persist after several weeks of increased omeprazole dosing, consider referral to Gastroenterology. Plan Follow up in 4 months. Referral to endo placed. Orders: Orders Lipid Panel Today E11.9 - Type 2 diabetes mellitus without complications, E66.9 - Obesity, unspecified, E78.00 - Pure hypercholesterolemia, unspecified, I10 - Essential (primary) hypertension Liver Panel Today E11.9 - Type 2 diabetes mellitus without complications, E66.9 - Obesity, unspecified, E78.00 - Pure hypercholesterolemia, unspecified, I10 - Essential (primary) hypertension Complete Blood Count Auto Diff Today E11.9 - Type 2 diabetes mellitus without complications, E66.9 - Obesity, unspecified, E78.00 - Pure hypercholesterolemia, unspecified, I10 - Essential (primary) hypertension Hemoglobin A1c Today E11.9 - Type 2 diabetes mellitus without complications, E66.9 - Obesity, unspecified, E78.00 - Pure hypercholesterolemia, unspecified, I10 - Essential (primary) hypertension TSH reflex Free T4 Today E11.9 - Type 2 diabetes mellitus without complications, E66.9 - Obesity, unspecified, E78.00 - Pure hypercholesterolemia, unspecified, I10 - Essential (primary) hypertension Referrals Endocrinology Referral E11.9 - Type 2 diabetes mellitus without complications Medications: New omeprazole 40 mg PO DAILY 90 caps 0RF
[2025-02-02 15:53] VITALS: BP 104/74; PULSE 92; RESP 14; TEMP 36.6; O2SAT 96; BMI 34.8
== END 2025-02-02 16:21 | disposition home or self-care (01) ==
LOC: HO.HMCHD 15:41
PROVIDERS: PCP Physician Assistant; Visit Provider Physician Assistant
DX: E11.9 Type 2 diabetes mellitus without complications (principal); I10 Essential (primary) hypertension; E78.00 Pure hypercholesterolemia, unspecified; K21.9 Gastro-esophageal reflux disease without esophagitis

== ENCOUNTER 2025-02-04 10:33 | Outpatient (REF) | payer OTHER, SELFPAY ==
--- OUTSIDE RECORDS SUMMARY | 2025-02-04 10:39 | XMS_ITS | Clinical Summary ---
Author Organization [facility] Address [address] [place] [address] Care Team Providers Care Detail Maker And Fitter Name Role Phone Unavailable Primary Care Provider [...]
[2025-02-04 10:46] LABS: MANUAL DIFF FLAG NO
[2025-02-04 11:48] LABS: Basophils Absolute Auto 0.1 X10*3/uL (0.0-0.2); Eosinophils Absolute Auto 0.3 X10*3/uL (0.0-0.4); Eosinophils Percent Auto 4.3 % (0-4); Hematocrit 48.5 % (42.0-52.0); Hemoglobin 16.6 g/dl (14.0-18.0); Imm Gran Abs Auto 0.09 X10*3/uL (0.00-0.03); Imm Gran Pct Auto 1.2 % (0.0-0.4); Lymphocytes Absolute Auto 2.7 X10*3/uL (1.2-4.9); Lymphocytes Percent Auto 36.8 % (20-40); Mean Corpuscular HGB Conc 34.2 g/dl (31.0-36.0); Mean Corpuscular Hemoglobin 28.9 pg (27.0-33.0); Mean Corpuscular Volume 84.3 fL (80.0-98.0); Monocytes Absolute Auto 0.4 X10*3/uL (0.1-1.2); Monocytes Percent Auto 5.3 % (2-11); Neutrophils Absolute Auto 3.8 x10*3/uL (2.0-8.3); Neutrophils Percent Auto 51.4 % (45-73); Platelet Count 227 X10*3/uL (160-400); Red Blood Count 5.75 X10*6/uL (4.60-5.80); Red Cell Distribution Width 12.9 % (11.0-16.0); White Blood Count 7.4 X10*3/uL (4.8-10.8)
[2025-02-04 11:54] LABS: Estimated Average Glucose 283 mg/dL; Hemoglobin A1C 429.3034 umol/L; Hemoglobin A1c % 11.5 % (<6.0); Total Hemoglobin (HGBA1C) 4183.7133 umol/L
[2025-02-04 12:46] LABS: Alanine Aminotransferase 32 U/L (0-40); Albumin Level 4.5 g/dL (3.5-5.0); Alkaline Phosphatase 205 U/L (39-117); Aspartate Amino Transferase 42 U/L (5-37); Bilirubin Direct 0.3 mg/dL (0.0-0.5); Bilirubin Total 1.1 mg/dL (0.0-1.0); Cholesterol 165 mg/dL (<200); HDL Cholesterol 29 mg/dL (>40); Triglycerides 517 mg/dL (<150)
[2025-02-04 13:01] LABS: TSH reflex Free T4 1.75 uIU/mL (0.32-4.0)
== END 2025-02-04 10:34 | disposition home or self-care (01) ==
LOC: HO.LAB 10:33
PROVIDERS: PCP Physician Assistant; Visit Provider Physician Assistant
DX: E66.9 Obesity, unspecified (principal); E11.9 Type 2 diabetes mellitus without complications; I10 Essential (primary) hypertension; E78.00 Pure hypercholesterolemia, unspecified
CPT/HCPCS: 36415; 80061; 80076; 83036; 84443; 85025

== ENCOUNTER 2025-02-14 08:18 | Outpatient (AMB) | payer OTHER, SELFPAY ==
--- OUTSIDE RECORDS SUMMARY | 2025-02-14 08:26 | XMS_ITS | Clinical Summary ---
Author Organization [facility] Address [address] [place] [address] Care Team Providers Care Grain Operator Name Role Phone Unavailable Primary Care Provider [...]
--- NOTE | 2025-02-14 08:35 | A.OFFVIS_ITS ---
Vital Signs 02/14/25 08:38 Height 5 ft 7 in Weight 220 lb 10.923 oz BMI 34.6 BP 102/64 Blood Pressure Location Rt brachial Position Sitting Pulse 86 Pulse Source Pulse Oximeter Pulse Oximetry (%) 97 Oxygen Delivery Method Room Air Intake Visit Reasons: Type 2 diabetes mellitus without complications Intake Note: Patient present today for Type 2 Diabetes Mellitus Last Diabetic eye exam: 11/2024 Last Podiatry Visit: Doesn't have one Random Glucose: 233 mg/dl HgA1C: 11.5% 02/04/25 Civil Defense Director Required: No Accompanied by: Self / Same As Patient Allergies No Known Allergies Allergy (Verified 02/14/25 08:41) Medication List - Last Reconciled 02/14/25 by Nidhi Monroe PA-C atorvastatin 40 mg PO DAILY clotrimazole-betamethasone 1-0.05 % 1 appl topical BID 4 weeks dapagliflozin propanediol (Farxiga) 10 mg PO DAILY dulaglutide (Trulicity) 0.75 mg subcut QWEEK finerenone (Kerendia) 10 mg PO DAILY glipizide 10 mg PO BID insulin glargine (Lantus Solostar U-100 Insulin) units subcut lisinopril (Zestril) 20 mg PO DAILY omeprazole 40 mg PO DAILY HPI HPI Type 2 diabetes mellitus without complications: Details: patient is a 44-year-old male with a significant past medical history of type 2 diabetes, hypertension, hyperlipidemia, obstructive sleep apnea , GERD and obesity presenting today for a consultation regarding his diabetes. Endo: Dm- he was diagnosed with diabetes in 2017. His most recent A1c was 11.5. He is currently being treated with Trulicity 0.75 mg weekly, Farxiga 10 mg daily, glipizide 10 mg twice a day and Lantus 45 units twice a day. -He does get some nausea following trulicity injections for 3 days. He would like to switch drugs because he does not think he could tolerate a higher dose. He has tried this drug for about a year. Previous meds: he was on metformin Mild GI side effects, d/c by pcp due to liver concerns. cgm- previously had 1 but has not had his Dexcom in quite some time. Dexcom has worked better for him than the Jazmin 3+. He denies having any back up testing supplies. He does not monitor his blood sugars. Hypoglycemia- he states 1 time he did have a blood sugar in the 50s and he felt very symptomatic with this. He did correct this with orange juice. He says that this was about a year ago. He has glucose tabs at home. Hyperglycemia- he does have some symptoms like increased thirst and polyuria. He has never had diabetic Education or seen endocrinology before. he does believe he has a good understanding of diabetes as his father has diabetes, his grandfather had diabetes and most of his extended family also has type 2 diabetes. He states that he has been confirmed type 2 diabetic. CV: Blood pressure today in the office is 102/64. He is on lisinopril 20 mg. Statin was recently increase to atorvastatin 40 mg following his recent labs. nephro: Follows with Nephrology, Dr. Braden. He has one kidney. He states that his material flow engineer encouraged him to switch to Ozempic. 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 Physical Exam Vital Signs: Last Vital Signs Pulse 86 02/14/25 08:38 BP 102/64 02/14/25 08:38 Pulse Ox 97 02/14/25 08:38 Oxygen Delivery Method Room Air 02/14/25 08:38 BMI result Body Mass Index 34.6 Const Orientation/consciousness: patient oriented x3 Neck Neck: Yes no lymphadenopathy Thyroid: Thyroid normal Carotids: no bruits Resp Auscultation: clear to auscultation bilaterally Cardio Rate: regular rate Rhythm: regular rhythm Heart sounds: S1 normal heart sound present and S2 normal heart sound present Peripheral pulses: dorsalis pedis present Neuro General: patient oriented x3, gait normal and no focal motor deficits Extrem Other: Monofilament sensation intact bilaterally. Vibratory sensation intact bilaterally. Skin intact. General: Yes normal to inspection Results Reviewed Results Reviewed: Laboratory Tests 01/20/25 02/04/25 10:25 10:45 Creatinine 1.31 Estimated GFR 60 Estimat Average Glucose 283 Hemoglobin A1c % 11.5 H Triglycerides 517 H Cholesterol 165 LDL Cholesterol, Calc TNP HDL Cholesterol 29 L Assessment & Plan Assessment & Plan (1) Uncontrolled type 2 diabetes mellitus with hyperglycemia, with long-term current use of insulin: Code(s): E11.65 - Type 2 diabetes mellitus with hyperglycemia; Z79.4 - FDC (current) use of insulin Category: Medical Plan: approximately 60 minutes spent today in [id number] time reviewing the pathophysiology of diabetes, the differences between type 1 and type 2 diabetes, the diet changes that he would need to make with his diabetes and complications associated with diabetes. He is aware that it does increase his risk of a heart attack, stroke, renal disease ( he has 1 kidney as he donated his other to his sister), blindness, amputations, infections etc.. We will switch to Toujeo 50 units daily we will start NovoLog 5 units prior to meals 3 times a day. We will discontinue Trulicity and switch to Ozempic. Discussed risks and benefits and adverse effects of this medication including nausea, vomiting, increased risk of pancreatitis. No family history of endocrine malignancy. Continue glipizide 10 mg twice a day and Farxiga 10 mg daily Dexcom ordered for him. Provided him a sensor today in the office. He has the yamilet already download on his phone. We reviewed rule of 15. Has glucose tabs at home. Short term follow up in 2-3 weeks. Sooner if needed. He will send me a portal message to let me know how he is doing with his glucose readings and we discussed that we will adjust insulin if needed. (2) HTN (hypertension): Code(s): I10 - Essential (primary) hypertension Category: Medical Plan: WNL. Continue lisinopril. (3) Elevated cholesterol: Code(s): E78.00 - Pure hypercholesterolemia, unspecified Category: Medical Plan: Recently had his statin increased. Medications: New insulin glargine U-300 conc (Toujeo Max U-300 SoloStar) 50 units (0.1667 mL) subcut DAILY 6 mL 4RF blood-glucose sensor (Dexcom G7 Sensor device) Use TID As directed to monitor glucose. change q 10 days 3 ea 5RF E11.65 - Type 2 diabetes mellitus with hyperglycemia, Z79.4 - technician terminal and repeater (current) use of insulin blood sugar diagnostic (OneTouch Ultra Test strips) Use TID As directed to monitor blood glucose 100 ea 3RF semaglutide (Ozempic) 0.25 mg (0.368 mL) subcut QWEEK 3 mL 1RF blood-glucose meter (OneTouch Ultra2 Meter) Use TID As directed to monitor blood sugars. 1 ea 0RF lancets (OneTouch UltraSoft 2 Lancet) use daily As directed to monitor blood sugars 100 ea 2RF insulin aspart U-100 (Novolog FlexPen U-100 Insulin aspart) 5 units (0.05 mL) subcut TID 15 mL 3RF pen needle, diabetic Use QID As directed 100 ea 3RF Coding Level of Care Code New Pt Level 5 (32299) Diagnoses Uncontrolled type 2 diabetes mellitus with hyperglycemia, with long-term current use of insulin E11.65; Z79.4 HTN (hypertension) I10 Elevated cholesterol E78.00
[2025-02-14 08:38] VITALS: BP 102/64; PULSE 86; O2SAT 97; BMI 34.6
[2025-02-14 08:47] LABS: Glucose, Whole Blood 233 mg/dL (60-115)
== END 2025-02-14 09:29 | disposition home or self-care (01) ==
LOC: HO.ENCR 08:19
PROVIDERS: PCP Physician Assistant; Visit Provider Physician Assistant
DX: E11.65 Type 2 diabetes mellitus with hyperglycemia (principal); Z79.4 Long term (current) use of insulin; I10 Essential (primary) hypertension; E78.00 Pure hypercholesterolemia, unspecified

== ENCOUNTER → 2025-02-14 08:18 | Outpatient (BNVA) | payer OTHER, SELFPAY | PROVIDERS: PCP Physician Assistant; Visit Provider Physician Assistant | DX: E11.65 Type 2 diabetes mellitus with hyperglycemia (principal); I10 Essential (primary) hypertension; G47.33 Obstructive sleep apnea (adult) (pediatric); K21.9 Gastro-esophageal reflux disease without esophagitis; E66.9 Obesity, unspecified; E78.00 Pure hypercholesterolemia, unspecified; Z79.4 Long term (current) use of insulin; Z68.34 Body mass index [BMI] 34.0-34.9, adult | CPT/HCPCS: 82947 ==

== ENCOUNTER 2025-02-22 10:19 | Outpatient (AMB) | payer OTHER, SELFPAY ==
--- NOTE | 2025-02-22 10:27 | MHC.OFFVIS ---
Vital Signs 02/22/25 10:28 Height 5 ft 7 in Weight 225 lb 15.581 oz BMI 35.4 BP 102/68 Blood Pressure Location Lt brachial Position Sitting Pulse 94 Pulse Source Pulse Oximeter Pulse Oximetry (%) 96 Oxygen Delivery Method Room Air Intake Visit Reasons: Obstructive sleep apnea Intake Note: ptis here for follow up of diana, and is doing well Sports Betting Manager Required: No Allergies No Known Allergies Allergy (Verified 02/22/25 10:39) Medication List - Last Reconciled 02/22/25 by Dheeraj Deutsch MD atorvastatin 40 mg PO DAILY blood sugar diagnostic (QosmosTouch Ultra Test strips) Use TID As directed to monitor blood glucose blood-glucose meter (QosmosTouch Ultra2 Meter) Use TID As directed to monitor blood sugars. blood-glucose sensor ([employer] G7 Sensor device) Use TID As directed to monitor glucose. change q 10 days clotrimazole-betamethasone 1-0.05 % 1 appl topical BID 4 weeks dapagliflozin propanediol (Farxiga) 10 mg PO DAILY finerenone (Kerendia) 10 mg PO DAILY glipizide 10 mg PO BID insulin aspart (niacinamide) 100 unit/mL (3 mL) (Fiasp FlexTouch U-100 Insulin) 5 units subcut TID lancets (OneTouch UltraSoft 2 Lancet) use daily As directed to monitor blood sugars lisinopril (Zestril) 20 mg PO DAILY omeprazole 40 mg PO DAILY pen needle, diabetic Use QID As directed semaglutide (Ozempic) 0.25 mg (0.368 mL) subcut QWEEK Do you need a note to return to daycare/school/sports/work: No HPI HPI Obstructive sleep apnea: Details: This 44 years old gentleman is here for follow-up after 6 months mainly for his obstructive sleep apnea. He uses CPAP very regularly with auto Pap mode pressure setting of 6-20 cm, and a fullface mask. He does use his CPAP for up to use 7 hours plus every night. He reports no side effects from the mask or machine. Sleeps very good. He remains overweight and currently he is on Ozempic injections hoping that. 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 Review of Systems Const All systems reviewed & are unremarkable except as noted in HPI and below Eyes Reports no additional complaints ENT Reports dry mouth Card Reports no additional complaints Resp Reports no additional complaints GI Reports heartburn (BEING TREATED WITH OMEPRAZOLE) Reports no additional complaints Musc Reports no additional complaints Skin/Breast Reports system reviewed and no additional complaints, except as documented Neuro Reports no additional complaints Psych Reports no additional complaints Physical Exam Vital Signs: Last Vital Signs Pulse 94 02/22/25 10:28 BP 102/68 02/22/25 10:28 Pulse Ox 96 02/22/25 10:28 Oxygen Delivery Method Room Air 02/22/25 10:28 BMI result Body Mass Index 35.4 Const General: healthy appearing, comfortable, no acute distress, alert and awake Orientation/consciousness: patient oriented x3 HEENT Head: Yes normal to inspection General nose exam: No nasal polyps present and No nasal discharge present Face and sinus: Yes sinuses nontender Mouth: oropharynx abnormals (CROWDED AND VERY NARROW, MALLAMPATI CLASS 4) Throat: Yes posterior oropharynx normal Eyes General: appearance normal, both eyes and all related structures Neck Neck: Yes normal visual inspection, Yes no lymphadenopathy, Yes trachea midline, Yes no JVD and Yes other (NECK SIZE 17-1/2 INCH) Thyroid: Thyroid normal Chest Chest palpation & inspection: normal inspection of the chest, normal palpation of entire chest wall and no tenderness Resp Effort & Inspection: normal respiratory effort Auscultation: clear to auscultation bilaterally, no rhonchi and no wheezes Percussion: percussion normal Cardio Palpation: normal PMI Rate: regular rate Rhythm: regular rhythm Heart sounds: no gallops and no murmurs Peripheral pulses: Peripheral pulses 2+ throughout GI Palpation (GI): Soft to palpation, nontender, No hepatosplenomegaly present and no masses Auscultation: normal bowel sounds Back/Spine/Pelvis Thoracic/Lumbar Spine: thoracic and lumbar spine normal to inspection Skin General skin exam: no rashes or lesions noted Neuro General: patient oriented x3 and no focal motor deficits Cranial nerves: Yes CN's II-XII intact bilaterally Extrem General: Yes normal to inspection, No no joint enlargement (Both knees are tender and slightly swollen.), Yes no clubbing, cyanosis or edema and Yes no calf tenderness Psych Appearance: grossly normal and well kempt Speech and movement: Normal speech and movement present Results Reviewed Results Reviewed: Compliance report for the last 30 nights reviewed that he has used 30/30 nights, 100%. Average use it per night 7 hours 9 minutes. Pressure used between 9-11 cm. There is no air leak reported. Residual AHI 0.6 Assessment & Plan Assessment & Plan (1) DIANA (obstructive sleep apnea): Comment: Patient had severe obstructive sleep apnea with total sleep time AHI 38. It is well treated with the CPAP. Patient has been using CPAP very regularly. And sleeps good. Compliance is excellent . Code(s): G47.33 - Obstructive sleep apnea (adult) (pediatric) Category: Medical Plan: Commended for good compliance. Advised to keep on using the CPAP every night regularly. (2) Obesity: Comment: HE IS MODERATELY OBESE No further weight loss, Currently he has been started on Ozempic injections, and hopefully he will lose significant weight. Code(s): E66.9 - Obesity, unspecified Category: Medical Plan: Continue efforts to lose weight . Coding Level of Care Code Est Pt Level 3 (88908) Diagnoses DIANA (obstructive sleep apnea) G47.33 Obesity E66.9
[2025-02-22 10:28] VITALS: BP 102/68; PULSE 94; O2SAT 96; BMI 35.4
== END 2025-02-22 10:40 | disposition home or self-care (01) ==
LOC: HO.HPS 10:20
PROVIDERS: PCP Internal Medicine; Visit Provider Internal Medicine
DX: G47.33 Obstructive sleep apnea (adult) (pediatric) (principal); E66.9 Obesity, unspecified
CPT/HCPCS: 99213

== ENCOUNTER 2025-03-11 11:23 | Outpatient (AMB) | payer OTHER, SELFPAY ==
--- NOTE | 2025-03-11 11:24 | A.OFFVIS_ITS ---
Vital Signs 03/11/25 11:25 Height 5 ft 7 in Weight 229 lb 15.074 oz BMI 36.0 BP 98/72 Blood Pressure Location Rt brachial Position Sitting Pulse 82 Pulse Source Pulse Oximeter Pulse Oximetry (%) 93 Oxygen Delivery Method Room Air Intake Visit Reasons: Type 2 diabetes mellitus without complications Intake Note: Patient present today for Type 2 Diabetes Mellitus Last Diabetic eye exam: 11/2024 Last Podiatry Visit: Doesn't have one Random Glucose: 111 mg/dl HgA1C: 11.5% 02/04/25 Warehouse Foreman Required: No Accompanied by: Self / Same As Patient Allergies No Known Allergies Allergy (Verified 03/11/25 11:30) Medication List - Last Reconciled 03/11/25 by Nidhi Monroe PA-C atorvastatin 40 mg PO DAILY blood sugar diagnostic (digiSchoolTouch Ultra Test strips) Use TID As directed to monitor blood glucose blood-glucose meter (digiSchoolTouch Ultra2 Meter) Use TID As directed to monitor blood sugars. blood-glucose sensor ([employer] G7 Sensor device) Use TID As directed to monitor glucose. change q 10 days clotrimazole-betamethasone 1-0.05 % 1 appl topical BID 4 weeks dapagliflozin propanediol (Farxiga) 10 mg PO DAILY finerenone (Kerendia) 10 mg PO DAILY glipizide 10 mg PO BID insulin aspart (niacinamide) 100 unit/mL (3 mL) (Fiasp FlexTouch U-100 Insulin) 5 units subcut TID lancets (OneTouch UltraSoft 2 Lancet) use daily As directed to monitor blood sugars lisinopril (Zestril) 20 mg PO DAILY omeprazole 40 mg PO DAILY pen needle, diabetic Use QID As directed HPI HPI Type 2 diabetes mellitus without complications: Details: patient is a 44-year-old male with a significant past medical history of type 2 diabetes, hypertension, hyperlipidemia, obstructive sleep apnea , GERD and obesity presenting today for a consultation regarding his diabetes. Endo: Dm- he was diagnosed with diabetes in 2017. His most recent A1c was 11.5. He is currently being treated with Ozempic 0.25 mg weekly mg weekly, Farxiga 10 mg daily, glipizide 10 mg twice a day and Lantus 40 units twice a day. -He does get some nausea following trulicity injections for 3 days. He would like to switch drugs because he does not think he could tolerate a higher dose. He has tried this drug for about a year. Previous meds: he was on metformin Mild GI side effects, d/c by pcp due to liver concerns. cgm- 8.5% 32% very high, 32% hyperglycemic, 35% in rage. Hypoglycemia- he states 1 time he did have a blood sugar in the 50s and he felt very symptomatic with this. He did correct this with orange juice. He says that this was about a year ago. He has glucose tabs at home. Hyperglycemia- he does have some symptoms like increased thirst and polyuria. He has never had diabetic Education or seen endocrinology before. he does believe he has a good understanding of diabetes as his father has diabetes, his grandfather had diabetes and most of his extended family also has type 2 diabetes. He states that he has been confirmed type 2 diabetic. CV: Blood pressure today in the office is 102/64. He is on lisinopril 20 mg. Statin was recently increase to atorvastatin 40 mg following his recent labs. nephro: Follows with Nephrology, Dr. Braden. He has one kidney. He states that his analyst competitive intelligence encouraged him to switch to Ozempic. 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 Exam Vital Signs: Last Vital Signs Pulse 82 03/11/25 11:25 BP 98/72 03/11/25 11:25 Pulse Ox 93 03/11/25 11:25 Oxygen Delivery Method Room Air 03/11/25 11:25 BMI result Body Mass Index 36.0 Const Orientation/consciousness: patient oriented x3 HEENT Ears: hearing grossly normal bilaterally Neck Thyroid: Thyroid normal Lymphatic: no lymphadenopathy noted Resp Auscultation: clear to auscultation bilaterally Cardio Rate: regular rate Rhythm: regular rhythm Heart sounds: S1 normal heart sound present and S2 normal heart sound present Skin General skin exam: no rashes or lesions noted Neuro General: patient oriented x3, gait normal and no focal motor deficits Results Reviewed Results Reviewed: Laboratory Last Values Glucose (Clinic) 111 mg/dL (60-115) 03/11/25 11:31 Laboratory Tests 01/20/25 02/04/25 02/14/25 10:21 10:45 08:43 Glucose (Clinic) 233 H Estimat Average Glucose 283 Hemoglobin A1c % 11.5 H AST 42 H ALT 32 Triglycerides 517 H Cholesterol 165 LDL Cholesterol, Calc TNP HDL Cholesterol 29 L U Random Total Protein 27 H Urine Creatinine 85.70 Urine Microalbumin 184.0 Microalb/Creat Ratio 214.7 H Protein/Creatinin Ratio 0.32 H Assessment & Plan Assessment & Plan (1) Uncontrolled type 2 diabetes mellitus with hyperglycemia, with long-term current use of insulin: Code(s): E11.65 - Type 2 diabetes mellitus with hyperglycemia; Z79.4 - [facility] (current) use of insulin Category: Medical Plan: Diabetes is significantly improved however, still not at goal. Increase Ozempic to 0.5 mg weekly Increase Fiasp to 10 units with meals Continue Lantus 40 units b.i.d. Continue glipizide Reviewed signs and symptoms of hyper and hypoglycemia that would require emergent medical treatment. Rule of 15 reviewed again. I have ordered glucose tabs and glucagon Short term follow up in 1 month. Sooner if needed (2) HTN (hypertension): Code(s): I10 - Essential (primary) hypertension Category: Medical Plan: Continue current regimen. Lisinopril refilled today. (3) Elevated cholesterol: Code(s): E78.00 - Pure hypercholesterolemia, unspecified Category: Medical Plan: Continue current regimen Medications: New semaglutide (Ozempic) 0.5 mg (0.736 mL) subcut QWEEK 3 mL 3RF dapagliflozin propanediol (Farxiga) 10 mg PO DAILY 90 tabs 3RF lisinopril 20 mg PO DAILY 90 tabs 3RF glucose (Dex4 Glucose) until symptoms of low blood sugar are controlled 16 grams (4 x 4 gram) PO Q15M PRN 100 tabs 0RF hypoglycemia glucagon 3 mg/actuation 3 mg intranasal ONCE 2 ea 0RF hypoglycemia insulin glargine (Lantus Solostar U-100 Insulin) 40 units (0.4 mL) subcut BID 15 mL 4RF glipizide 10 mg PO BID 180 tabs 0RF Changed From insulin aspart (niacinamide) 100 unit/mL (3 mL) (Fiasp FlexTouch U-100 Insulin) 5 units subcut TID 15 mL 2RF To insulin aspart (niacinamide) 100 unit/mL (3 mL) (Fiasp FlexTouch U-100 Insuli n) 10 units subcut TID 15 mL 2RF Refilled insulin aspart (niacinamide) 100 unit/mL (3 mL) (Fiasp FlexTouch U-100 Insulin) 10 units subcut TID 15 mL 2RF Coding Level of Care Code Est Pt Level 4 (35451) Complex EM visit Add On G2211 Diagnoses Uncontrolled type 2 diabetes mellitus with hyperglycemia, with long-term current use of insulin E11.65; Z79.4 HTN (hypertension) I10 Elevated cholesterol E78.00
[2025-03-11 11:25] VITALS: BP 98/72; PULSE 82; O2SAT 93; BMI 36.0
[2025-03-11 11:35] LABS: Glucose, Whole Blood 111 mg/dL (60-115)
--- OUTSIDE RECORDS SUMMARY | 2025-03-11 12:35 | XMS_ITS | Clinical Summary ---
Author Organization [facility] Address [address] [place] [address] Care Team Providers Care Welfare Manager Name Role Phone Unavailable Primary Care [...]
== END 2025-03-11 11:55 | disposition home or self-care (01) ==
LOC: HO.ENCR 11:23
PROVIDERS: PCP Internal Medicine; Visit Provider Physician Assistant
DX: E11.65 Type 2 diabetes mellitus with hyperglycemia (principal); Z79.4 Long term (current) use of insulin; I10 Essential (primary) hypertension; E78.00 Pure hypercholesterolemia, unspecified

== ENCOUNTER → 2025-03-11 11:23 | Outpatient (BNVA) | payer OTHER, SELFPAY | PROVIDERS: PCP Internal Medicine; Visit Provider Physician Assistant | DX: E11.65 Type 2 diabetes mellitus with hyperglycemia (principal); G47.33 Obstructive sleep apnea (adult) (pediatric); K21.9 Gastro-esophageal reflux disease without esophagitis; E66.9 Obesity, unspecified; E78.00 Pure hypercholesterolemia, unspecified; Z79.899 Other long term (current) drug therapy; Z68.36 Body mass index [BMI] 36.0-36.9, adult | CPT/HCPCS: 82947 ==

== ENCOUNTER 2025-04-08 13:20 | Outpatient (AMB) | payer OTHER, SELFPAY ==
--- OUTSIDE RECORDS SUMMARY | 2021-08-13 10:49 | XMS_ITS | Encounter Summary ---
Author Organization [facility] Address [address] [place] [address] [place] [phone] Phone Care Team Providers Care Freight Unloader Name Role Phone Antonio Craft MD Primary Care Provider Encounter Details Date Type Department Care Team (Late st Contact Info) Description 08/13/2021 9:49 AM EST Hospital Encounter [facility] [address] [place] [phone] Brooklynn Allen FNP [address] [place] [phone] [email or web address] Social History Tobacco Use Types Packs/Day Years Used Date Smoking Tobacco: Former Smokeless Tobacco: Never Education Answer Date Recorded Are you interested in more education? Not on jw e 01/10/2023 Are you concerned about learning? Not on file 01/10/2023 No 01/10/2023 No 01/10/2023 Digital Access Answer Date Recorded No 02/11/2023 No 02/11/2023 Reliable internet access at home? Not on file 02/11/2023 Device with a working camera? Not on file Sex and Gender Information Value Date Recorded Sex Assigned at Not on file Legal Sex Male 12:32 PM EDT Gender Identity Not on file Sexual Orientation Not on file documented as of this encounter Plan of Treatment Not on file documented as of this encounter Procedures Procedure Name Priority Date/Time Associated Diagnosis Comments XR KNEE 4 OR MORE VIEWS (RIGHT) Urgent/patient waiting 08/13/2021 10:01 AM EST Acute pain of right knee documented in this encounter Results * XR KNEE 4 OR MORE VIEWS (RIGHT) (08/13/2021 10:01 AM EST) Anatomical Region Laterality Modality Knee Right Computed Radiogr aphy 08/13/2021 10:2 9 AM EST Impressions 08/13/2021 10:32 AM EST No fracture or dislocation. Moderate effusion. Narrative 08/13/2021 10:32 AM EST XR KNEE 4 OR MORE VIEWS (RIGHT) COMPARISON: None. FINDINGS: Right Knee: No fracture. Normal alignment. Normal joint spaces. Moderate effusion. Procedure Note Cheyanne Stanford MD - 08/13/2021 XR KNEE 4 OR MORE VIEWS (RIGHT) COMPARISON: None. FINDINGS: Right Knee: No fracture. Normal alignment. Normal joint spaces. Moderateeffusion. IMPRESSION: No fracture or dislocation. Moderate effusion. Brooklynn Allen COST CONTROL SUPERVISOR IMG XR LOWER EXTREMITY Suzan l Result documented in this encounter Visit Diagnoses Not on filedocumented in this encounter Care Teams Freight Unloader Relationship Specialty Start Date End Date Antonio Craft MD [address] [place] [address] [place] [address] PCP - General Internal Medicine 08/13/21 documented as of this encounter Additional Source Comments The information contained in this document represents components of the legal health record. It is not the complete legal health record.[facility]
--- OUTSIDE RECORDS SUMMARY | 2025-04-08 13:22 | XMS_ITS | Clinical Summary ---
Author Organization [facility] Address [address] [address] Phone Care Team Providers Care Air Carrier Operations Inspector Name Role Phone Oly Mao Primary Care Provider [phone] Allergies No known active allergies Medications Lantus [...] Orders Only [facility] [address] [phone] Yariel Braden MD 01/19/2025 1:45 PM EDT Office Visit [facility] [address] [phone] Yariel Braden MD Stage 3a chronic kidney disease (HCC) (Primary Dx); Type 2 diabetes mellitus with diabetic chronic kidney disease (HCC); Persistent proteinuria; Donor nephrectomy from Last 3 Months Family History Medical [...] Office Visit [facility] [address] [phone] Yariel Braden MD [address] [id number] Health Maintenance Due Date Last Done Comments Hepatitis B Vaccine (1 of 3 - 19+ 3-dose series) 2000 Pneumococcal Vaccine: Peds ( 0 to 5 Years) and At-Risk Patients (6 to 49 Years) (1 of 2 - PCV) 2000 Diabetes: Ophthalmology Exam 12/13/2021 Diabetes: Pedal Pulse Checked 12/13/2021 Diabetes: Sensory Foot Exam 12/13/2021 Diabetes: Visual Foot Exam 12/13/2021 Diabetes: Hemoglobin A1C 11/12/202208/13/2 022, 06/04/2022, 02/20/2022, Additional history exists Influenza Vaccine (#1) 2025 Procedures Procedure Name Priority Date/Time Associated [...] ORDERABLES Final Re sult Performing Organization Address [facility]/State/[facility] Co de Phone Number [place] See order comments [place] [address] * (ABNORMAL) Albumin, urine, random (01/20/2025 10:48 AM EDT) Creatinine, Urine 85.70 mg/dL Se e order comments Urine Microalbumin 184.0 mg/L See order comments Microalbumin/Crea tinine Ratio 214.7(H) <30 ug/mg cr See order comments Comment: Albumin/Creatinine Ratio Reference Ranges: Normal: < 30 ug/mg creatinine Microalbuminuria: 30 - 300 ug/mg creatinine Clinical Albuminuria: > 300 ug/mg creatinine 01/20/2025 10:4 8 AM EDT 01/20/2025 10:48 AM EDT us Yariel Braden MD LAB URINE ORDERABLES Final Re sult Performing Organization Address City/State/[facility] Co de Phone Number [place] See order comments [place] [address] * (ABNORMAL) Urinalysis with microscopic (01/20/2025 10:48 AM EDT) Color Urine Yellow See orde r comments Appearance Urine Clear See order comments pH Urine 5.5 5.0 - 9.0 See order comments Glucose Urine >=1000(A) Negative mg/dL See order comments Blood, Urine Negative Negative See ord er comments Specific [place] Urine >=1.030(H) 1.005 - 1.025 See order [...] 10:48 AM EDT 01/20/2025 10:48 AM EDT Yariel Braden MD LAB URINE ORDERABLES Final Re zarina Performing Organization Address [facility] Co de Phone Number [place] See order comments [place] [address] * Creatinine (01/20/2025 10:25 AM EDT) Creatinine Serum 1.31 0.5 - 1.4 mg/dL See order comments eGFR (Calc) 60 See orde r comments Comment: Chronic Kidney Disease: Estimated GFR < 60 mL/min/1.73m2 Severe Kidney Disease: Estimated GFR < 15 mL/min/1.73m2 01/20/2025 10:2 5 AM EDT 01/20/2025 10:25 AM EDT us Yariel Braden MD LAB BLOOD ORDERABLES Final Re sult [place] See order comments [place] [address] * (ABNORMAL) PTH, Intact (01/20/2025 10:25 AM EDT) Parathyroid Hormone, Intact 104.9(H) 8.7 - 77.1 pg/mL See order comments 01/20/2025 10:2 5 AM EDT 01/20/2025 10:25 AM EDT us Yariel Braden MD LAB [id number] SOLICITED RESULTS Final Result Performing Organization Address [facility] Co de Phone Number [place] See order comments [place] [address] * (ABNORMAL) Vitamin D 25 Hydroxy (01/20/2025 10:25 AM EDT) Vitamin D, 25-Hydroxy 15.3(L) >30 ng/mL See order comments Comment: Health Based Reference Values* < 20 ng/mL Deficient 20-30 ng/mL Insufficient > 30 ng/mL Sufficient *Musa HERNANDEZ. N Engl J Med. 2007;357:[id number] [...] D results from different laboratories and methodologies. Published data demonstrated that results from patients undergoing [...] MD LAB BLOOD ORDERABLES Final Re sult [id number] See order comments [place] [address] * CBC and Differential (01/20/2025 10:25 AM [...] ORDERABLES Final Re sult Performing Organization Address [facility] Phone Number [place] See order comments [place] [address] * BUN (01/20/2025 10:25 AM EDT) BUN 16 9 - 16 mg/dL See order comments 01/20/2025 10:2 5 AM EDT 01/20/2025 10:25 AM EDT us Yariel Braden MD LAB BLOOD ORDERABLES Final Re sult Performing Organization Address [facility] de Phone Number [place] See order comments [place] [address] * Phosphorus (01/20/2025 10:25 AM EDT) Phosphorus, Serum 3.0 2.7 - 4.5 mg/dL See order comments Blood specimen (specimen) Venous blood / Unknown 01/20/2025 10:25 AM EDT 01/20/2025 10:25 AM EDT us Yariel Braden MD LAB BLOOD ORDERABLES Final Re sult Performing Organization Address [facility] de Phone Number [place] See order comments [place] [address] * Magnesium (01/20/2025 10:25 AM EDT) Magnesium 2.0 1.6 - 2.6 mg/dL See order comments Blood specimen (specimen) Venous blood / Unknown 01/20/2025 10:25 AM EDT 01/20/2025 10:25 AM EDT us Yariel Braden MD LAB BLOOD ORDERABLES Final Re sult Performing Organization Address [facility] de Phone Number [place] See order comments [place] [address] * Calcium (01/20/2025 10:25 AM EDT) Calcium 9.0 8.4 - 10.2 mg/dL See order comments Blood specimen (specimen) Venous blood / Unknown 01/20/2025 10:25 AM EDT 01/20/2025 10:25 AM EDT us Yariel Braden MD LAB BLOOD ORDERABLES Final Re sult Performing Organization Address [facility] de Phone Number [place] See order comments [place] [address] * Albumin (01/20/2025 10:25 AM EDT) Albumin 4.2 3.5 - 5.0 g/dL See order comments Blood specimen (specimen) Venous blood / Unknown 01/20/2025 10:25 AM EDT 01/20/2025 10:25 AM EDT us Yariel Braden MD LAB BLOOD ORDERABLES Final Re sult Performing Organization Address [facility] Phone Number [place] See order comments [place] [address] * Electrolyte panel (01/20/2025 10:25 AM EDT) [...] ORDERABLES Final Re sult Performing Organization Address [facility] de [facility] See order comments [place] [address] * (ABNORMAL) EXT RESULT ENTRY (08/13/2022) WBC [...] Most Recently Relevant to Health Maintenance [place] [address] [place] [address] Care Teams Air Carrier Operations Inspector Relationship Specialty Start Date End Date Oly Mao DO [facility] [address] [place] [address] PCP - General Family Medicine 01/19/25
--- OUTSIDE RECORDS SUMMARY | 2025-04-08 13:22 | XMS_ITS | Clinical Summary ---
Author Organization [facility] Address [address] [place] [address] Care Team Providers Care Continuous Drier Operator Name Role Phone Unavailable Primary Care [...]
[2025-04-08 13:35] VITALS: BP 96/72; PULSE 90; O2SAT 96; BMI 36.5
--- NOTE | 2025-04-08 13:35 | MHC.OFFVIS ---
Vital Signs 04/08/25 13:35 Height 5 ft 7 in Weight 232 lb 12.93 oz BMI 36.5 BP 96/72 Blood Pressure Location Lt brachial Position Sitting Pulse 90 Pulse Source Pulse Oximeter Pulse Oximetry (%) 96 Oxygen Delivery Method Room Air Intake Visit Reasons: Type 2 diabetes mellitus Intake Note: Patient present today for Type 2 Diabetes Mellitus Last Diabetic eye exam: 09/2024 Last Podiatry Visit: Doesn't have one but would like a referral. Random Glucose: 88 mg/dl HgA1C: 11.5% 02/04/25 Steel Crane Operator Required: No Accompanied by: Self / Same As Patient Allergies No Known Allergies Allergy (Verified 04/08/25 13:40) Medication List - Last Reconciled 04/08/25 by Nidhi Monroe PA-C atorvastatin 40 mg PO DAILY blood sugar diagnostic (Double FusionTouch Ultra Test strips) Use TID As directed to monitor blood glucose blood-glucose meter (Double FusionTouch Ultra2 Meter) Use TID As directed to monitor blood sugars. blood-glucose sensor (CallAround G7 Sensor device) Use TID As directed to monitor glucose. change q 10 days clotrimazole-betamethasone 1-0.05 % 1 appl topical BID 4 weeks dapagliflozin propanediol (Farxiga) 10 mg PO DAILY finerenone (Kerendia) 10 mg PO DAILY glipizide 10 mg PO BID glucagon 3 mg/actuation 3 mg intranasal ONCE glucose (Dex4 Glucose) 16 grams (4 x 4 gram) PO Q15M PRN insulin aspart (niacinamide) 100 unit/mL (3 mL) (Fiasp FlexTouch U-100 Insulin) 10 units subcut TID insulin glargine (Lantus Solostar U-100 Insulin) 40 units (0.4 mL) subcut BID lancets (OneTouch UltraSoft 2 Lancet) use daily As directed to monitor blood sugars lisinopril 20 mg PO DAILY omeprazole 40 mg PO DAILY pen needle, diabetic Use QID As directed HPI HPI Type 2 diabetes mellitus: Details: patient is a 44-year-old male with a significant past medical history of type 2 diabetes, hypertension, hyperlipidemia, obstructive sleep apnea , GERD and obesity presenting today for a consultation regarding his diabetes. Endo: Dm- he was diagnosed with diabetes in 2017. His most recent A1c was 11.5. He is currently being treated with Ozempic 0.5 mg weekly mg weekly, Farxiga 10 mg daily, glipizide 10 mg twice a day and Lantus 40 units twice a day, fiasp 10 units tid Previous meds: he was on metformin Mild GI side effects, d/c by pcp due to liver concerns. trulicity caused n/v/d cgm- 8.1%, avg glucose 199. 17% very high, 39% hyperglycemic, 44% in range. Hypoglycemia- he states 1 time he did have a blood sugar in the 50s and he felt very symptomatic with this. He did correct this with orange juice. He says that this was about a year ago. He has glucose tabs at home. Hyperglycemia- he does have some symptoms like increased thirst and polyuria. CV: Blood pressure today in the office is 96/72. He is on lisinopril 20 mg. Statin was recently increase to atorvastatin 40 mg following his recent labs. nephro: Follows with Nephrology, Dr. Braden. He has one kidney. [facility] Medical History GERD (gastroesophageal reflux disease) Diabetes Elevated cholesterol HTN (hypertension) CAITY (obstructive sleep apnea) Obesity Diabetic acidosis, type II Surgical History Hx of kidney donation Social History Patient Tobacco Use Status: Former Tobacco user Tobacco use type: Cigarette Current occupational status: employed 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 Vibratory sensation intact bilaterally. Skin intact. General: Yes normal to inspection Results Reviewed Results Reviewed: Laboratory Tests 02/04/25 03/11/25 10:45 11:31 Glucose (Clinic) 111 Hemoglobin A1c % 11.5 H Assessment & Plan Assessment & Plan (1) Uncontrolled type 2 diabetes mellitus with hyperglycemia, with long-term current use of insulin: Code(s): E11.65 - Type 2 diabetes mellitus with hyperglycemia; Z79.4 - laborer marine terminal (current) use of insulin Category: Medical Plan: Referral to podiatry Increase Ozempic to 1 mg weekly It is frustrating/painful for him to do multiple insulin injections a day therefore we will switch from Lantus to Toujeo for hopefully better coverage. I have increased the Toujeo dosing to 90 units. Continue fiasp dosing Continue Farxiga and glipizide. (2) HTN (hypertension): Code(s): I10 - Essential (primary) hypertension Category: Medical Plan: Continue current regimen (3) Elevated cholesterol: Code(s): E78.00 - Pure hypercholesterolemia, unspecified Category: Medical Plan: I will recheck lipids and LFTs. Orders: Orders Lipid Panel Today E11.65 - Type 2 diabetes mellitus with hyperglycemia, E78.00 - Pure hypercholesterolemia, unspecified, I10 - Essential (primary) hypertension, Z79.4 - penitentiary (current) use of insulin Hemoglobin A1c Today E11.65 - Type 2 diabetes mellitus with hyperglycemia, E78.00 - Pure hypercholesterolemia, unspecified, I10 - Essential (primary) hypertension, R73.01 - Impaired fasting glucose, Z79.4 - laborer marine [employer] (current) use of insulin Comprehensive Mode. Panel Fast Today E11.65 - Type 2 diabetes mellitus with hyperglycemia, E78.00 - Pure hypercholesterolemia, unspecified, I10 - Essential (primary) hypertension, Z79.4 - penitentiary (current) use of insulin Microalbumin, Random (w Creat) Today E11.65 - Type 2 diabetes mellitus with hyperglycemia, E78.00 - Pure hypercholesterolemia, unspecified, I10 - Essential (primary) hypertension, Z79.4 - laborer marine terminal (current) use of insulin Referrals Podiatry Referral M79.673 - Pain in unspecified foot Medications: New semaglutide (Ozempic) 1 mg (0.75 mL) subcut QWEEK 3 mL 5RF insulin glargine U-300 conc (Toujeo Max U-300 SoloStar) 90 units (0.3 mL) subcut DAILY 6 mL 3RF Discontinued insulin glargine (Lantus Solostar U-100 Insulin) Discontinued Reason: Doctor's Order 40 units (0.4 mL) subcut BID 15 mL 4RF Coding Level of Care Code Est Pt Level 4 (47429) Diagnoses Uncontrolled type 2 diabetes mellitus with hyperglycemia, with long-term current use of insulin E11.65; Z79.4 HTN (hypertension) I10 Elevated cholesterol E78.00
[2025-04-08 13:48] LABS: Glucose, Whole Blood 88 mg/dL (60-115)
== END 2025-04-08 13:59 | disposition home or self-care (01) ==
LOC: HO.ENCR 13:20
PROVIDERS: PCP Internal Medicine; Visit Provider Physician Assistant
DX: E11.65 Type 2 diabetes mellitus with hyperglycemia (principal); Z79.4 Long term (current) use of insulin; I10 Essential (primary) hypertension; E78.00 Pure hypercholesterolemia, unspecified

== ENCOUNTER → 2025-04-08 13:20 | Outpatient (BNVA) | payer OTHER, SELFPAY | PROVIDERS: PCP Internal Medicine; Visit Provider Physician Assistant | DX: E11.65 Type 2 diabetes mellitus with hyperglycemia (principal); I10 Essential (primary) hypertension; G47.33 Obstructive sleep apnea (adult) (pediatric); K21.9 Gastro-esophageal reflux disease without esophagitis; E66.9 Obesity, unspecified; E78.00 Pure hypercholesterolemia, unspecified; Z68.36 Body mass index [BMI] 36.0-36.9, adult; Z79.4 Long term (current) use of insulin | CPT/HCPCS: 82947 ==

== ENCOUNTER 2025-06-08 13:41 | Outpatient (AMB) | payer OTHER, SELFPAY ==
--- OUTSIDE RECORDS SUMMARY | 2021-08-13 10:49 | XMS_ITS | Encounter Summary ---
Author Organization [facility] Address [address] [place] [address] [place] [phone] Phone Care Team Providers Care Correction Officer Penitentiary Name Role Phone Antonio Craft MD Primary Care Provider Encounter Details Date Type Department Care Team (Late st Contact Info) Description 08/13/2021 9:49 AM EST Hospital Encounter [facility] [address] [place] [phone] Brooklynn Allne FNP [address] [place] [phone] [email or web address] Social History Tobacco Use Types Packs/Day [...] fracture or dislocation. Moderate effusion. Brooklynn Allen NAIL PULLER IMG XR LOWER EXTREMITY Suzan l Result documented in this encounter Visit Diagnoses Not on filedocumented in this encounter Care Teams Correction Officer Penitentiary Relationship Specialty Start Date End Date Antonio Craft MD [address] [place] [address] [place] [address] PCP - General Internal Medicine 08/13/21 documented as of this encounter Additional Source Comments The information contained in this document represents components of the legal health record. It is not the complete legal health record.[facility]
--- OUTSIDE RECORDS SUMMARY | 2023-01-13 13:45 | XMS_ITS | Encounter Summary ---
Author Organization [facility] Address [address] [place] [address] [place] [phone] Phone Care Team Providers Care Farm Field Manager Name Role Phone Antonio Craft MD Primary Care Provider Encounter Details Date Type Department Care Team (Late st Contact Info) Description 01/13/2023 1:45 PM EDT Hospital Encounter [facility] [address] [place] [address] Jenifer Tierney CNP [address] [place] [phone] [email or web address] Social History Tobacco Use Types Packs/Day Years [...] dislocation. Small joint effusion. us Jenifer Tierney SASH FINISHER IMG XR LOWER EXTREMITY Suzan l Result documented in this encounter Visit Diagnoses Not on filedocumented in this encounter Care Teams Farm Field Manager Relationship Specialty Start Date End Date Antonio Craft MD [address] [place] [address] [place] [address] PCP - General Internal Medicine 08/13/21 documented as of this encounter Additional Source Comments The information contained in this document represents components of the legal health record. It is not the complete legal health record.[facility]
--- NOTE | 2025-06-08 13:44 | MHC.PC.OV ---
Vital Signs 06/08/25 13:46 Height 5 ft 7 in Weight 108.409 kg BMI 37.4 BP 114/76 Blood Pressure Location Lt brachial Position Sitting Respiration 18 Pulse 101 H Pulse Source Pulse Oximeter Temp 97.9 F Temp Source Temporal Artery Scan Pulse Oximetry (%) 96 Oxygen Delivery Method Room Air Intake Visit Reasons: 4 Month F/U Lost Charge Card Clerk Required: No Accompanied by: Self / Same As Patient Allergies No Known Allergies Allergy (Verified 06/08/25 13:44) Medication List - Last Reconciled 06/08/25 by MARY ALICE Gonsalves atorvastatin 40 mg PO DAILY blood sugar diagnostic (BannoTouch Ultra Test strips) Use TID As directed to monitor blood glucose blood-glucose meter (BannoTouch Ultra2 Meter) Use TID As directed to monitor blood sugars. blood-glucose sensor ([email or web address] G7 Sensor device) Use TID As directed to monitor glucose. change q 10 days dapagliflozin propanediol (Farxiga) 10 mg PO DAILY finerenone (Kerendia) 10 mg PO DAILY glipizide 10 mg PO BID glucagon 3 mg/actuation 3 mg intranasal ONCE PRN glucose (Dex4 Glucose) 16 grams (4 x 4 gram) PO Q15M PRN insulin aspart (niacinamide) 100 unit/mL (3 mL) (Fiasp FlexTouch U-100 Insulin) 10 units subcut BID insulin glargine U-300 conc (Toujeo Max U-300 SoloStar) 90 units (0.3 mL) subcut DAILY lancets (BannoTouch UltraSoft 2 Lancet) use daily As directed to monitor blood sugars lisinopril 20 mg PO DAILY omeprazole 40 mg PO DAILY pen needle, diabetic Use QID As directed semaglutide (Ozempic) 1 mg (0.75 mL) subcut QWEEK Tobacco use date assessed: 06/08/25 Dental Screening Dental Screen Date: 06/08/25 Did you have a dental visit in the last 12 months?: Yes Did you have a dental problem in the last 6 months where you did not have access to dental care?: No Was dental information given to patient?: Patient has dentist HPI HPI Comments History of Present Illness Details 44-year-old male with history of type 2 diabetes, hyperlipidemia, hypertension, obstructive sleep apnea, GERD presents to the office today for management of chronic conditions. Last seen 01/2025 Type 2 diabetes-due for A1c, last A1c 7.8% in January. He does wear CGM, with GMI last 90 days 7.6%. Has had about 4 hypoglycemic episodes overnight monthly that trigger his alarm. Continues on 90 units of Toujeo, 10 units of aspart twice daily, 1 mg Ozempic weekly, 10 mg of Farxiga daily, 10 mg glipizide twice daily. He reports he is still struggling with diabetic diet but has improved slightly. Not exercising. Has been referred to Podiatry and has upcoming appointment with [facility]. [facility] Hypertension-compliant with lisinopril 20 mg daily. Blood pressure 114/76 Hyperlipidemia-on atorvastatin 40 mg daily. Last LDL not performed due to triglycerides of 517 CAITY-on CPAP GERD-controlled with PPI Obesity-class 2 with BMI 37.4 Former smoker- quit smoking 1.5 year ago (onset age [age], .25 ppd). Occasional craving. Concerns: Rash of the bilateral elbows present for about 2 months. Has been growing in size. Not itchy but very scaly. Has no known history of psoriasis. Has been using emollient moisturizers. No drainage or bleeding Health maintenance: Colonoscopies to start at age 46 ROS: General: No fevers, malaise, unintentional weight loss HEENT: No blurred vision, diplopia. No sore throat, nasal congestion, rhinorrhea, sinus pain, ear pain Cardiovascular: No chest pain, palpitations, or leg edema Respiratory: No shortness of breath, wheezing, cough GI: No abdominal pain, nausea, vomiting, diarrhea, constipation, melena, hematochezia : No dysuria, hematuria, increased urinary frequency, decreased urinary output MSK: No myalgia, back pain Neuro: No headaches, weakness, paresthesias Skin: see hpi EXAM: Constitutional - Awake and Alert, No apparent distress Eyes - PERRL Cardiovascular - S1S2, RRR, No edema Respiratory - Normal lung expansion, Normal respiratory effort, No respiratory distress, CTA bilaterally Extremities - no calf tenderness bilaterally, no swelling Skin - Warm/Dry. Scaling rash measuring about 3 cm x 3 cm on erythematous base on extensor surface of the elbow/forearm. Similar rash measuring about 1 cm x 1 cm on the extensor surface of the left elbow/forearm Neurological - Alert & oriented x3 Psychological - Appropriate affect [facility] Medical History (Updated 06/08/25 @ 14:23 by MARY ALICE Gonsalves) Psoriasis Type 2 diabetes mellitus with diabetic nephropathy GERD (gastroesophageal reflux disease) Diabetes Elevated cholesterol HTN (hypertension) CAITY (obstructive sleep apnea) Obesity Diabetic acidosis, type II Surgical History Hx of kidney donation Social History [facility] Patient Tobacco Use Status: Former Tobacco user Tobacco use type: Cigarette Years Smoked: 5 years-quit 3 years ago e-Cigarette/Vaping Use: Never Used service: No Current occupational status: employed 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 Questionnaire PHQ-9 Over the last 2 weeks, how often have you been bothered by any of the following problems? 1. Little interest or pleasure in doing things: not at all 2. Feeling down, depressed, or hopeless: not at all 3. Trouble falling or staying asleep, or sleeping too much: not at all 4. Feeling tired or having little energy: not at all 5. Poor appetite or overeating: more than half the days 6. Feeling bad about yourself - or that you are a failure or have let yourself or your family down: more than half the days 7. Trouble concentrating on things, such as reading the newspaper or watching television: nearly every day 8. Moving or speaking so slowly that other people could have noticed. Or the opposite - being so fidgety or restless that you have been moving around a lot more than usual: not at all 9. Thoughts that you would be better off or of hurting yourself in some way: not at all Total score: 7 Depression Screening Interpretation: Positive Depression Screening Done: Yes 68007 - PHQ-9 Billing: Yes Source: Developed by Drs. Shola Blanco, Jyoti Vance, Walt Barraza and colleagues, with an educational daniela from [employer]. AUDIT C Alcohol Use Questionnaire (AUDIT-C) 1. How often do you have a drink containing alcohol?: Monthly or less 2. How many drinks containing alcohol do you have on a typical day when you are drinking?: 1 or 2 Total Score: 1 TL-7 AMB Questionnaire TL-7 Feeling nervous, anxious, or on edge: 0 = Not at all Not being able to stop or control worryin = Not at all Worrying too much about different things: 0 = Not at all Trouble relaxin = Not at all Being so restless that it is hard to sit still: 0 = Not at all Becoming easily annoyed or irritable: 2 = More than half the days Feeling afraid as if something awful might happen: 0 = Not at all Total TL-7 score (0-4 normal; 5-9 mild; 10-14 moderate; 15-21 severe): 2 Source: Developed by Drs. Shola Blanco, Jyoti Vance, Walt Barraza and colleagues, with an educational daniela from [employer]. TL-7 Assessment Billing TL-7 Assessment Tool: TL-7 Assessment 94595 Physical exam (Primary Care) Vital Signs: Last Vital Signs Temp 97.9 F 06/08/25 13:46 Pulse 101 H 06/08/25 13:46 Resp 18 06/08/25 13:46 BP 114/76 06/08/25 13:46 Pulse Ox 96 06/08/25 13:46 Oxygen Delivery Method Room Air 06/08/25 13:46 BMI result Body Mass Index 37.4 Tobacco/Smoking Status: Tobacco use Status Tobacco use date assessed 06/08/25 06/08/25 13:45 Patient Tobacco Use Status Former Tobacco user 06/08/25 13:45 Tobacco use type Cigarette 06/08/25 13:45 e-Cigarette/Vaping Use Never Used 06/08/25 13:51 Depression Screening Interpretation: Positive Coding Level of Care Code Est Pt Level 4 (02615) Diagnoses Type 2 diabetes mellitus with diabetic nephropathy E11.21 HTN (hypertension) I10 Elevated cholesterol E78.00 Obesity E66.9 Psoriasis L40.9 Additional Codes PHQ-9 - 91625 - PHQ-9 Billing: Yes ([id number]) TL-7 Assessment Billing - TL-7 Assessment Tool: TL-7 Assessment 64150 ([id number]) Assessment & Plan Assessment & Plan (1) Type 2 diabetes mellitus with diabetic nephropathy: Code(s): E11.21 - Type 2 diabetes mellitus with diabetic nephropathy Category: Medical Plan: A1c ordered. Continue following with endocrinology, last note reviewed. Continue current therapies. Follow-up with podiatry as scheduled for diabetic foot exam and evaluation of bunion. Continue following with [facility]. Annual eye exams (2) HTN (hypertension): Code(s): I10 - Essential (primary) hypertension Category: Medical Plan: Controlled. Continue lisinopril 20 mg daily. Basic metabolic profile ordered to evaluate renal function electrolyte levels (3) Elevated cholesterol: Code(s): E78.00 - Pure hypercholesterolemia, unspecified Category: Medical Plan: Lipid panel ordered. Continue atorvastatin (4) Obesity: Comment: HE IS MODERATELY OBESE No further weight loss, Currently he has been started on Ozempic injections, and hopefully he will lose significant weight. Code(s): E66.9 - Obesity, unspecified Category: Medical Plan: Weight loss efforts discussed. Can continue GLP 1. Recommend improvement in dietary compliance. Recommend moderate intensity exercise for 150 minutes weekly. (5) Psoriasis: Code(s): L40.9 - Psoriasis, unspecified Category: Medical Plan: Betamethasone cream prescribed. Should there be no improvement or should he develop new lesions, will refer to Dermatology Plan Follow-up in 4-5 months. Labs to be completed following visit today. Orders: Orders Hemoglobin A1c Today MARY ALICE Gonsalves E11.65 - Type 2 diabetes mellitus with hyperglycemia, E78.00 - Pure hypercholesterolemia, unspecified, I10 - Essential (primary) hypertension, Z79.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 Vitamin D 25-OH Total Today MARY ALICE Gonsalves E55.9 - Vitamin D deficiency, unspecified, R20.2 - Paresthesia of skin Basic Metabolic Panel Today MARY ALICE Gonsalves E11.65 - Type 2 diabetes mellitus with hyperglycemia, E78.00 - Pure hypercholesterolemia, unspecified, I10 - Essential (primary) hypertension, Z79.4 - alf (current) use of insulin Lipid Panel Today MARY ALICE Gonsalves E11.65 - Type 2 diabetes mellitus with hyperglycemia, E78.00 - Pure hypercholesterolemia, unspecified, I10 - Essential (primary) hypertension, Z79.4 - alf (current) use of insulin Liver Panel Today MARY ALICE Gonsalves E11.65 - Type 2 diabetes mellitus with hyperglycemia, E78.00 - Pure hypercholesterolemia, unspecified, I10 - Essential (primary) hypertension, Z79.4 - alf (current) use of insulin Microalbumin, Random (w Creat) Today MARY ALICE Gonsalves E11.65 - Type 2 diabetes mellitus with hyperglycemia, E78.00 - Pure hypercholesterolemia, unspecified, I10 - Essential (primary) hypertension, Z79.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 Vitamin B12 Today MARY ALICE Gonsalves E55.9 - Vitamin D deficiency, unspecified, R20.2 - Paresthesia of skin LDL Cholesterol Direct Today MARY ALICE Gonsalves E78.00 - Pure hypercholesterolemia, unspecified Medications: New betamethasone valerate 0.1% 1 appl topical BID PRN 45 grams 0RF rash MARY ALICE Gonsalves Changed From glucagon 3 mg/actuation 3 mg intranasal ONCE 2 ea 0RF hypoglycemia To glucagon 3 mg/actuation 3 mg intranasal ONCE PRN Nidhi Monroe PA-C From insulin aspart (niacinamide) 100 unit/mL (3 mL) (Fiasp FlexTouch U-100 Insulin) 10 units subcut TID 15 mL 2RF To insulin aspart (niacinamide) 100 unit/mL (3 mL) (Fiasp FlexTouch U-100 Insulin) 10 units subcut BID Nidhi Monroe PA-C
[2025-06-08 13:46] VITALS: BP 114/76; PULSE 101; RESP 18; TEMP 36.6; O2SAT 96; BMI 37.4
--- OUTSIDE RECORDS SUMMARY | 2025-06-08 16:07 | XMS_ITS | Clinical Summary ---
Author Organization [facility] Address [address] [place], [place] [id number] Phone Care Team Providers Care Semiconductor Technician Name Role Phone Antonio Craft MD Primary Care Provider Allergies No known active allergies Medications LANTUS SOLOSTAR U-100 INSULIN 100 unit/mL (3 mL) InPn injection pen 1 Active glipiZIDE (GLUCOTROL) 10 MG tablet 1 Active FREESTYLE LITE Strp strips 1 Active naproxen (NAPROSYN) 500 MG tablet Take 1 tablet (500 mg total) by mouth 2 (two) times a day for 3 days. Then twice daily as needed for pain, inflammation 20 tablet 1 Active atorvastatin (LIPITOR) 10 MG tablet 3 Active FARXIGA 10 mg tablet Take 1 tablet by mouth every morning. 3 Active dapagliflozin (FARXIGA) 10 mg tablet Take 10 mg by mouth. 3 Active KERENDIA 10 mg Tab Take 1 tablet by mouth every morning. 3 Active finerenone (KERENDIA) 10 mg Tab Take 10 mg by mouth. 2 Active SEMGLEE,INSULI N GLARG-YFGN,PEN 100 unit/mL (3 mL) InPn INJECT 38 UNITS SUBCUTANEOUSLY TWICE A DAY 3 Active insulin glargine (LANTUS SOLOSTAR U-100 INSULIN) 100 unit/mL (3 mL) InPn injection pen 38 Units. 2 Active lisinopril (PRINIVIL,ZEST RIL) 20 MG tablet Take 1 tablet by mouth every morning. 3 Active FREESTYLE HERBERT 14 DAY SENSOR kit 3 Active famotidine (PEPCID ORAL) Take by mouth. A ctive Active Problems Problem Noted Date Diagnosed Date Stage 3a chronic kidney disease 06/11/2022 01/13/2023 Type 2 diabetes mellitus wit h diabetic chronic kidney disease 12/13/2021 01/13/2023 Social History Tobacco Use Types Packs/Day Years Used Date Smoking Tobacco: Former Smokeless Tobacco: Never Tobacco Cessation:Counseling Given: Not Answered Education Answer Date Recorded Are you interested [...] Sign Reading Time Taken Comments Blood Pressure 119/86 01/13/2023 1:23 PM EDT Pulse 80 01/13/2023 2:12 PM EDT Temperature 36.8 C (98.3 F) 01/13/2023 1:23 PM EDT Respiratory Rate 18 01/13/2023 1:23 PM EDT Oxygen Saturation 100% 01/13/2023 1:23 PM EDT Inhaled Oxygen Concentration - - Weight 107 kg (236 lb) 01/13/2023 1:23 PM EDT Height 170.2 cm (5' 7 ) 08/31/2021 1:24 PM EST Body Mass Index 36.96 08/31/2021 1:24 PM EST Plan of Treatment Health Maintenance Due Date Last Done Comments Adult Td,Tdap Booster 1981 DEPRESSION SCREENING 1993 SMOKING Hx and SMOKELESS TOB ACCO SCREENING 1994 HEPATITIS C SCREENING 1999 HIV ONE-TIME SCREENING (18-6 5 YEARS) 1999 PNEUMOCOCCAL VACCINES (0-49 years) (1 of 2 - PCV) 2000 HEMOGLOBIN A1C 08/28/2020 05/29/2020 CREATININE LEVEL 05/29/2021 05/29/2020 POTASSIUM LEVEL 05/29/2021 05/29/2020 DIABETIC EYE EXAM 01/13/2023 BLOOD PRESSURE 07/16/2023 01/13/2023 INFLUENZA VACCINE (#1) 2025 COVID-19 VACCINE ( - 2023-2 5 season) 2025 HEPATITIS A VACCINES Aged Out No long er eligible based on patient's age to complete this topic HIB VACCINES Aged Out No longer eligi ble based on patient's age to complete this topic MENINGOCOCCAL VACCINES (ACWY) Aged Out No longer eligible based on patient's age to complete this topic MENINGOCOCCAL VACCINES (B) Aged Out N o longer eligible based on patient's age to complete this topic Medical Devices Not on file Procedures Procedure Name Priority Date/Time Associated Diagnosis Comments HEMOGLOBIN A1C, [place] SENDOUT Routine 05/29/2020 1:04 PM EDT COMPREHENSIVE METABOLIC PANEL Routine 05/29/2020 1:04 PM EDT Phimosis of penis from Last 3 Months or Most Recently Relevant to Health Maintenance Results * (ABNORMAL) Hemoglobin A1c, sendout (05/29/2020 1:04 PM EDT) HEMOGLOBIN A1C 16.1(H) 4.0 - 5.6 % [facility] DPT OF LAB MED AND PAT+ Comment: (NOTE) Hemoglobin A1c values greater than or equal to 6.5 percent are diagnostic for diabetes mellitus. Diagnosis should be confirmed by repeat testing. In diabetic patients, HbA1c goals should be discussed with healthcare provider. 05/29/2020 1:04 PM EDT 05/30/2020 7:29 AM EDT us Jenifer Tierney STUDENT EDUCATION SPECIALIST LAB BLOOD ORDERABLES Final Result [facility] DPT OF LAB MED AND PAT+ [address] [place] [address] * (ABNORMAL) Comprehensive metabolic panel (05/29/2020 1:04 PM EDT) SODIUM 127(L) 133 - 146 mmol/L [facility] POTASSIUM 4.8 3.3 - 5.1 mmol/L [facility] CHLORIDE 87(L) 96 - 108 mmol/L [facility] CO2 20(L) 21 - 35 mmol/L [facility] BUN 13 6 - 19 mg/dL [facility] CREATININE 1.10 0.5 - 1.5 mg/dL [facility] GLUCOSE 540(HH) 70 - 99 mg/dL [facility] Comment: Critical Value. Results called to and read back by: NATHALIA SWAN, 183 ALBUMIN 4.5 3.9 - 4.8 g/dL [facility] TOTAL PROTEIN 7.2 6.5 - 8.0 g/dL [facility] CALCIUM 9.6 8.4 - 10.3 mg/dL [facility] ALKALINE PHOSPHATASE 184(H) 39 - 117 U/L [facility] TOTAL BILIRUBIN 1.2 0.0 - 1.2 mg/dL [facility] AST 20 0 - 37 U/L [facility] ALT 23 0 - 40 U/L [facility] GLOBULIN 2.7 1 - 4.8 g/dL [facility] EGFR 84 >59 mL/min/1.7 3m2 [facility] Comment:Estimated glomerular filtration rate calculated using the CKD-EPI equation. ANION GAP 25(H) 10 - 20 mmol/L [facility] Blood 05/29/2020 1:04 PM EDT 05/29/2020 4:48 PM EDT Jenifer Tierney STUDENT EDUCATION SPECIALIST LAB BLOOD ORDERABLES Final Result [address] [id number] from Last 3 Months or Most Recently Relevant to Health Maintenance Insurance [facility] [address] [address] [place] [address] [place] [address] [place] [place] [address] [place] [place] [address] [place] [address] HMO HMO [facility] HMO Care Teams Semiconductor Technician Relationship Specialty Start Date End Date Antonio Craft MD [address] [place] [address] Dr ESCOBAR [address] [place] [id number] PCP - General Internal Medicine 08/13/21 Additional Source Comments The information contained in this document represents components of the legal health record. It is not the complete legal health record.[facility]
--- OUTSIDE RECORDS SUMMARY | 2025-06-08 16:07 | XMS_ITS | Clinical Summary ---
Author Organization [facility] Address [address] [place] [address] Care Team Providers Care Integrated Logistics Programs Director Name Role Phone Unavailable Primary Care Provider [...] of 3 - 19+ 3-dose series) 2000 HPV Vaccines (1 - 3-dose SCD M series) 2008 COVID-19 Vaccine (2023-2 5 season) 2025 Pneumococcal Vaccine: Pediat winnie (0-5 Years) and At-Risk Patients (6 to 49 Years) Aged Out No longer eligible b ased on patient's age to complete this topic
== END 2025-06-08 14:15 | disposition home or self-care (01) ==
LOC: HO.HMCHD 13:41
PROVIDERS: PCP Physician Assistant; Visit Provider Physician Assistant
DX: E11.21 Type 2 diabetes mellitus with diabetic nephropathy (principal); I10 Essential (primary) hypertension; E78.00 Pure hypercholesterolemia, unspecified; E66.9 Obesity, unspecified; L40.9 Psoriasis, unspecified

== ENCOUNTER 2025-06-08 13:41 | Outpatient (REF) | payer OTHER, SELFPAY ==
[2025-06-08 15:46] LABS: Alanine Aminotransferase 61 U/L (0-40); Albumin Level 4.5 g/dL (3.5-5.0); Alkaline Phosphatase 152 U/L (39-117); Anion Gap 10 (12-20); Aspartate Amino Transferase 41 U/L (5-37); Blood Urea Nitrogen 13 mg/dL (9-16); Calcium 9.0 mg/dL (8.4-10.2); Carbon Dioxide 28 mmol/L (22-29); Chloride 106 mmol/L (96-108); Cholesterol 118 mg/dL (<200); Estimated Glomerular Filt Rate 58; HDL Cholesterol 30 mg/dL (>40); Potassium 4.3 mmol/L (3.3-5.1); Sodium 140 mmol/L (135-145); Total Protein 6.9 g/dL (6.5-8.0); Triglycerides 193 mg/dL (<150)
[2025-06-08 15:52] LABS: Vitamin B12 349 pg/mL (200-900)
[2025-06-08 15:59] LABS: Microalbum/Creatinine Ratio Ur 222.9 ug/mg cr (<30)
--- OUTSIDE RECORDS SUMMARY | 2025-06-08 17:04 | XMS_ITS | Clinical Summary ---
Author Organization [facility] Address [address] [phone] Phone Care Team Providers Care Steamtable Worker Name Role Phone Oly Mao Primary Care Provider [phone] Allergies No known active allergies Medications Lantus SoloStar 100 UNIT/ML injection 38 Units 10/24/19 22 Active glipiZIDE (GLUCOTROL) 10 MG tablet Take 10 mg by mouth 12/01/19 22 Active Dulaglutide (Trulicity) 0.75 MG/0.5ML solution pen-injector Inject under the skin Once weekly Active atorvastatin (LIPITOR) 10 MG tablet 06/06/20 22 Active Dapagliflozin Propanediol (Farxiga) 10 MG tablet Take 10 mg by mouth 1 (one) time each day 90 tablet 5 01/20/20 24 Active lisinopril 20 MG tablet TAKE 1 TABLET BY MOUTH EVERY DAY 90 tablet 02/18/20 24 Active Finerenone (Kerendia) 10 MG tabletIndicatio ns:Type 2 diabetes mellitus with diabetic chronic kidney disease (HCC),Stage 3a chronic kidney disease (HCC) Take 10 mg by mouth 1 (one) time each day 90 tablet 3 11/12/19 25 Active Ozempic, 1 MG/DOSE, 4 MG/3ML solution pen-injector inject 1 mg (0.75 ml) subcutaneously weekly 05/04/20 25 Active Insulin Glargine, 1 Unit Dial, (Toujeo SoloStar) 300 UNIT/ML solution pen-injector Inject 90 mL under the skin 1 (one) time each day Active Insulin Aspart, w/Niacinamide, (FIASP IJ) Inject 20 Units as directed 1 (one) time each day Active Active Problems Problem Noted Date Diagnosed Date Donor nephrectomy 01/19/2025 Stage 3a chronic kidney disease 06/11/2022 Proteinuria 12/13/2021 Chronic kidney disease, stage 2 (mild) 2 Type 2 diabetes mellitus wit h diabetic chronic kidney disease 12/13/2021 Encounters Date Type Department Care Team Description 05/18/2025 2:00 PM EDT Office Visit [facility] [address] [phone] Yariel Braden MD Stage 3a chronic kidney disease (HCC) (Primary Dx); Donor nephrectomy; Type 2 diabetes mellitus with diabetic chronic kidney disease (HCC); Persistent proteinuria from Last 3 Months Family History Medical [...] Sign Reading Time Taken Comments Blood Pressure 117/70 05/18/2025 2:05 PM EDT Pulse 97 05/18/2025 2:05 PM EDT Temperature - - Respiratory Rate - - Oxygen Saturation 98% 05/18/2025 2:05 PM EDT Inhaled Oxygen Concentration - - Weight 108 kg (237 lb 6.4 oz) 05/18/2025 2:05 PM EDT Height - - Body Mass Index - - Plan of Treatment Upcoming Encounters Date Type Department Care Team (Late st Contact Info) Description 11/15/2025 3:45 PM EST Office Visit [facility] [address] [phone] Yariel Braden MD [address] [phone] Health Maintenance Due Date Last Done Comments [...] Procedure Name Priority Date/Time Associated Diagnosis Comments EXT RESULT ENTRY Routine 08/13/2022 from Last 3 Months or Most Recently Relevant to Health Maintenance Results * (ABNORMAL) EXT RESULT ENTRY (08/13/2022) WBC [...] 7.7(A) 4.0 - 6.0 Triglycerides 286 08/13/2022 us Historical Provider LAB BLOOD ORDERABLES Suzan l Result from Last 3 Months or Most Recently Relevant to Health Maintenance Insurance [facility] Care Teams Steamtable Worker Relationship Specialty Start Date End Date Oly Mao DO [facility] [address] [place] [address] PCP - General Family Medicine 01/19/25
== END 2025-06-08 13:42 | disposition home or self-care (01) ==
LOC: HO.LAB 13:41
PROVIDERS: Physician Assistant; PCP Physician Assistant; Visit Provider Physician Assistant
DX: E11.65 Type 2 diabetes mellitus with hyperglycemia (principal); E11.21 Type 2 diabetes mellitus with diabetic nephropathy; I10 Essential (primary) hypertension; E78.00 Pure hypercholesterolemia, unspecified; E55.9 Vitamin D deficiency, unspecified; R73.01 Impaired fasting glucose; R20.2 Paresthesia of skin; E66.9 Obesity, unspecified; L40.9 Psoriasis, unspecified; Z79.4 Long term (current) use of insulin; Z79.84 Long term (current) use of oral hypoglycemic drugs; Z79.899 Other long term (current) drug therapy; Z87.891 Personal history of nicotine dependence; Z68.37 Body mass index [BMI] 37.0-37.9, adult
CPT/HCPCS: 36415; 80048; 80053; 80061; 80076; 82043; 82248; 82306; 82570; 82607; 83036; 83721; 96127

== ENCOUNTER 2025-07-04 14:38 | Outpatient (AMB) | payer OTHER, SELFPAY ==
--- OUTSIDE RECORDS SUMMARY | 2021-08-13 10:49 | XMS_ITS | Encounter Summary ---
Author Organization [facility] Address [address] [place] [address] [place] [phone] Phone Care Team Providers Care Commercial Drone Pilot Name Role Phone Antonio Craft MD Primary Care Provider Encounter Details Date Type Department Care Team (Late st Contact Info) Description 08/13/2021 9:49 AM EST Hospital Encounter [facility] [address] [place] [phone] Brooklynn Allen FNP [address] [place] [phone] [email or web address] Social History Tobacco Use Types Packs/Day Years [...] fracture or dislocation. Moderate effusion. Brooklynn Allen BOAT DIESEL MOTOR MECHANIC IMG XR LOWER EXTREMITY Suzan l Result documented in this encounter Visit Diagnoses Not on filedocumented in this encounter Care Teams Commercial Drone Pilot Relationship Specialty Start Date End Date Antonio Craft MD [address] [place] [address] [place] [address] PCP - General Internal Medicine 08/13/21 documented as of this encounter Additional Source Comments The information contained in this document represents components of the legal health record. It is not the complete legal health record.[facility]
--- OUTSIDE RECORDS SUMMARY | 2023-01-13 13:45 | XMS_ITS | Encounter Summary ---
Author Organization [facility] Address [address] [place] [address] [place] [phone] Phone Care Team Providers Care Cosmetic Sales Name Role Phone Antonio Craft MD Primary Care Provider Encounter Details Date Type Department Care Team (Late st Contact Info) Description 01/13/2023 1:45 PM EDT Hospital Encounter [facility] [address] [place] [address] Jenifer Tierney CNP [address] [place] [phone] [email or web address] Social History Tobacco Use Types Packs/Day Years [...] 4 OR MORE VIEWS (RIGHT) Urgent/patient waiting 01/13/2023 2:01 PM EDT Right anterior knee pain documented in this encounter Results * XR KNEE 4 OR MORE VIEWS (RIGHT) (01/13/2023 2:01 PM EDT) Anatomical Region Laterality Modality Knee Right Computed Radiogr aphy 01/13/2023 2:04 PM EDT Impressions 01/13/2023 2:05 PM EDT No fracture or dislocation. Small joint effusion. Narrative 01/13/2023 2:05 PM EDT XR KNEE 4 OR MORE VIEWS (RIGHT) COMPARISON: July 2021 FINDINGS: Right Knee: No fracture. Normal alignment. Normal joint spaces. Small effusion. Procedure Note Arvind Richmond MBBS - 01/13/2023 XR KNEE 4 OR MORE VIEWS (RIGHT) COMPARISON: July 2021 FINDINGS: Right Knee: No fracture. Normal alignment. Normal joint spaces. Smalleffusion. IMPRESSION: No fracture or dislocation. Small joint effusion. us Jenifer Tierney POLICE ARTIST IMG XR LOWER EXTREMITY Suzan l Result documented in this encounter Visit Diagnoses Not on filedocumented in this encounter Care Teams Cosmetic Sales Relationship Specialty Start Date End Date Antonio Craft MD [address] [place] [address] [place] [address] PCP - General Internal Medicine 08/13/21 documented as of this encounter Additional Source Comments The information contained in this document represents components of the legal health record. It is not the complete legal health record.[facility]
[2025-07-04 14:40] VITALS: BP 90/62; PULSE 104; O2SAT 97; BMI 37.4
--- NOTE | 2025-07-04 14:40 | MHC.OFFVIS ---
Vital Signs 07/04/25 14:40 Height 5 ft 7 in Weight 238 lb 15.697 oz BMI 37.4 BP 90/62 Blood Pressure Location Rt brachial Position Sitting Pulse 104 H Pulse Source Pulse Oximeter Pulse Oximetry (%) 97 Oxygen Delivery Method Room Air Intake Visit Reasons: Type 2 diabetes mellitus Intake Note: Patient present today for Type 2 Diabetes Mellitus Last Diabetic eye exam: Last exam was on 2023, not due for another one until 2025 Last Podiatry Visit: Has upcoming appt in July 2025 Random Glucose: 169 mg/dl HgA1C: 7.6% 06/08/25 Machine Try Out Setter Required: No Accompanied by: Self / Same As Patient Allergies No Known Allergies Allergy (Verified 07/04/25 14:45) Medication List - Last Reconciled 07/04/25 by Nidhi Monroe PA-C atorvastatin 40 mg PO DAILY betamethasone valerate 0.1% 1 appl topical BID PRN blood sugar diagnostic (Therapeutic Proteinsuch Ultra Test strips) Use TID As directed to monitor blood glucose blood-glucose meter (Point Blank Range Ultra2 Meter) Use TID As directed to monitor blood sugars. blood-glucose sensor (Kardium G7 Sensor device) Use TID As directed to monitor glucose. change q 10 days cholecalciferol (vitamin D3) 1,250 mcg PO QWEEK dapagliflozin propanediol (Farxiga) 10 mg PO DAILY finerenone (Kerendia) 10 mg PO DAILY glucagon 3 mg/actuation 3 mg intranasal ONCE PRN glucose (Dex4 Glucose) 16 grams (4 x 4 gram) PO Q15M PRN insulin aspart (niacinamide) 100 unit/mL (3 mL) (Fiasp FlexTouch U-100 Insulin) 10 units subcut BID insulin glargine U-300 conc (Toujeo Max U-300 SoloStar) 90 units (0.3 mL) subcut DAILY lancets (Point Blank Range UltraSoft 2 Lancet) use daily As directed to monitor blood sugars lisinopril 20 mg PO DAILY omeprazole 40 mg PO DAILY pen needle, diabetic Use QID As directed semaglutide (Ozempic) 1 mg (0.75 mL) subcut QWEEK HPI HPI Type 2 diabetes mellitus: Details: patient is a 44-year-old male with a significant past medical history of type 2 diabetes, hypertension, hyperlipidemia, obstructive sleep apnea , GERD and obesity presenting today for a consultation regarding his diabetes. Endo: Dm- he was diagnosed with diabetes in 2017. His last A1c was 11.5 and most recently 7.6. He is currently being treated with Ozempic 1 mg weekly mg weekly, Farxiga 10 mg daily, glipizide 10 mg twice a day and Lantus 40 units twice a day, fiasp 10 units tid Previous meds: he was on metformin Mild GI side effects, d/c by pcp due to liver concerns. trulicity caused n/v/d cgm- GMI 7%, 154 avg glucose. Very hyperglycemic 6%, hyperglycemic 25%, in range 68%, hypoglycemic 1%, very hypoglycemic 0% . Hypoglycemia- he states he has a had a few low blood sugars if he ends up injection fiasp after meals. It is rare. He did correct this with orange juice. He says that this was about a year ago. He has glucose tabs at home. Hyperglycemia- he does have some symptoms like increased thirst and polyuria. No recent sx. CV: Blood pressure today in the office is 90/62. He is on lisinopril 20 mg. On atorvastatin 40 mg nephro: Follows with Nephrology, Dr. Braden. He has one kidney. GI: has a hx of elevated lfts. States about 10 years ago he was drinking a bit heavily for 10 years. He denies any abdominal pain. He says that he feels well. He states his liver tests have been elevated for years. Does not recall consulting with the GI doctor. States that in January after his LFTs were elevated it was recommended that he increase the atorvastatin. He has had better control over his blood sugars. He does not drink alcohol. [facility] Medical History (Updated 07/04/25 @ 14:53 by Nidhi Monroe PA-C) Psoriasis Type 2 diabetes mellitus with diabetic nephropathy GERD (gastroesophageal reflux disease) Diabetes Elevated cholesterol HTN (hypertension) CAITY (obstructive sleep apnea) Obesity Diabetic acidosis, type II Surgical History Hx of kidney donation [facility] Patient Tobacco Use Status: Former Tobacco user Tobacco use type: Cigarette Years Smoked: 5 years-quit 3 years ago e-Cigarette/Vaping Use: Never Used service: No Current occupational status: employed 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 Vibratory sensation intact bilaterally. Skin intact. General: Yes normal to inspection Assessment & Plan Assessment & Plan (1) Uncontrolled type 2 diabetes mellitus with hyperglycemia, with long-term current use of insulin: Code(s): E11.65 - Type 2 diabetes mellitus with hyperglycemia; Z79.4 - terminal clerk (current) use of insulin Category: Medical Plan: Increase Ozempic to 2 mg weekly Continue Toujeo dosing to 90 units. Continue fiasp dosing Continue Farxiga D/C glipizide. (2) HTN (hypertension): Code(s): I10 - Essential (primary) hypertension Category: Medical Plan: Continue current regimen (3) Elevated LFTs: Code(s): R79.89 - Other specified abnormal findings of blood chemistry Category: Medical Plan: us ordered labs ordered to recheck in a couple months referral to gi advised to follow with pcp Advised to avoid Tylenol and alcohol Advised to control blood sugars very closely. Orders: Orders US abdomen comp w elastography Today R7. - Other specified abnormal findings of blood chemistry Gamma Glutamyl Transpeptidase Today R79.89 - Other specified abnormal findings of blood chemistry Hepatitis C Antibody Today R79.89 - Other specified abnormal findings of blood chemistry Liver Panel Today R79.89 - Other specified abnormal findings of blood chemistry Hepatitis B Surface Antigen Today R79. - Other specified abnormal findings of blood chemistry Referrals Gastroenterology Referral R79.89 - Other specified abnormal findings of blood chemistry Medications: New semaglutide (Ozempic) 2 mg (0.75 mL) subcut QWEEK 3 mL 4RF Discontinued semaglutide (Ozempic) Discontinued Reason: Doctor's Order 1 mg (0.75 mL) subcut QWEEK 3 mL 5RF Coding Level of Care Code Est Pt Level 4 (19029) Complex EM visit Add On G2211 Diagnoses Uncontrolled type 2 diabetes mellitus with hyperglycemia, with long-term current use of insulin E11.65; Z79.4 HTN (hypertension) I10 Elevated LFTs R79.89
[2025-07-04 14:50] LABS: Glucose, Whole Blood 169 mg/dL (60-115)
--- OUTSIDE RECORDS SUMMARY | 2025-07-04 18:27 | XMS_ITS | Clinical Summary ---
Author Organization [facility] Address [address] [phone] Phone Care Team Providers Care Scientific Recruiter Name Role Phone Oly Mao Primary Care Provider [phone] Allergies No known active allergies Medications Lantus [...] Office Visit [facility] [address] [phone] Yariel Braden MD Stage 3a chronic kidney [...] Office Visit [facility] [address] [phone] Yariel Braden MD [address] [phone] Health Maintenance Due Date Last Done Comments [...] Most Recently Relevant to Health Maintenance Insurance [facility] Care Teams Scientific Recruiter Relationship Specialty Start Date End Date Oly Mao DO [facility] [address] [place] [address] PCP - General Family Medicine 01/19/25
--- OUTSIDE RECORDS SUMMARY | 2025-07-04 18:27 | XMS_ITS | Clinical Summary ---
Author Organization [facility] Address [address] [place], [place] [id number] Phone Care Team Providers Care Grab Jack Man Name Role Phone Antonio Craft MD Primary [...] 01/13/2023 INFLUENZA VACCINE (#1) 2025 COVID-19 VACCINE (2024-2 6 season) 2025 HEPATITIS A VACCINES Aged Out [...] Priority Date/Time Associated Diagnosis Comments HEMOGLOBIN A1C, BROCKWAY SENDOUT Routine 05/29/2020 1:04 PM EDT COMPREHENSIVE METABOLIC PANEL Routine 05/29/2020 1:04 PM EDT Phimosis of penis from Last 3 Months or Most Recently Relevant to Health Maintenance Results * (ABNORMAL) Hemoglobin A1c, sendout (05/29/2020 1:04 PM EDT) HEMOGLOBIN A1C 16.1(H) 4.0 - 5.6 % [facility] DPT OF LAB MED AND PAT+ Comment: (NOTE) Hemoglobin A1c values greater than or equal to 6.5 percent are diagnostic for diabetes mellitus. Diagnosis should be confirmed by repeat testing. In diabetic patients, HbA1c goals should be discussed with healthcare provider. 05/29/2020 1:04 PM EDT 05/30/2020 7:29 AM EDT us Jenifer Tierney FOOT ORTHOPEDIST LAB BLOOD ORDERABLES Final Result [facility] DPT OF LAB MED AND PAT+ [address] [place] [address] * (ABNORMAL) Comprehensive metabolic panel (05/29/2020 1:04 PM EDT) SODIUM 127(L) 133 - 146 mmol/L [facility] POTASSIUM 4.8 3.3 - 5.1 mmol/L [facility] CHLORIDE 87(L) 96 - 108 mmol/L [facility] CO2 20(L) 21 - 35 mmol/L [facility] BUN 13 6 - 19 mg/dL [facility] CREATININE 1.10 0.5 - 1.5 mg/dL [facility] GLUCOSE 540(HH) 70 - 99 mg/dL [facility] Comment: Critical Value. Results called to and read back by: NATHALIA SWAN, 183 ALBUMIN 4.5 3.9 - 4.8 g/dL [facility] TOTAL PROTEIN 7.2 6.5 - 8.0 g/dL [facility] CALCIUM 9.6 8.4 - 10.3 mg/dL [facility] ALKALINE PHOSPHATASE 184(H) 39 - 117 U/L [facility] TOTAL BILIRUBIN 1.2 0.0 - 1.2 mg/dL [facility] AST 20 0 - 37 U/L [facility] ALT 23 0 - 40 U/L [facility] GLOBULIN 2.7 1 - 4.8 g/dL [facility] EGFR 84 >59 mL/min/1.7 3m2 [facility] Comment:Estimated glomerular filtration rate calculated using the CKD-EPI equation. ANION GAP 25(H) 10 - 20 mmol/L [facility] Blood 05/29/2020 1:04 PM EDT 05/29/2020 4:48 PM EDT Jenifer Tierney FOOT ORTHOPEDIST LAB BLOOD ORDERABLES Final Result [address] [address] from Last 3 Months or Most Recently Relevant to Health Maintenance Insurance [facility] [place] [address] [place] [address] [place] [address] [place] [address] [place] [address] [place] [address] [address] HMO HMO [facility] HMO Care Teams Grab Jack Man Relationship Specialty Start Date End Date Antonio Craft MD [address] [place] [address] Dr ESCOBAR [address] [place] [id number] PCP - General Internal Medicine 08/13/21 Additional Source Comments The information contained in this document represents components of the legal health record. It is not the complete legal health record.[facility]
--- OUTSIDE RECORDS SUMMARY | 2025-07-04 18:27 | XMS_ITS | Clinical Summary ---
Author Organization [facility] Address [address] [place] [address] Care Team Providers Care Profile Trimmer Name Role Phone Unavailable Primary Care Provider [...] - 19+ 3-dose series) 2000 COVID-19 Vaccine ( - 2023-2 5 season) 2025 HPV Vaccines (No Doses Required) Completed Pneumococcal Vaccine: Pediat winnie (0-5 Years) and At-Risk Patients (6 to 49 Years) Aged Out No longer eligible b ased on patient's age to complete this topic
== END 2025-07-04 15:06 | disposition home or self-care (01) ==
LOC: HO.ENCR 14:38
PROVIDERS: PCP Internal Medicine; Visit Provider Physician Assistant
DX: E11.65 Type 2 diabetes mellitus with hyperglycemia (principal); Z79.4 Long term (current) use of insulin; I10 Essential (primary) hypertension; R79.89 Other specified abnormal findings of blood chemistry

== ENCOUNTER → 2025-07-04 14:38 | Outpatient (BNVA) | payer OTHER, SELFPAY | PROVIDERS: PCP Internal Medicine; Visit Provider Physician Assistant | DX: E11.65 Type 2 diabetes mellitus with hyperglycemia (principal); I10 Essential (primary) hypertension; R79.89 Other specified abnormal findings of blood chemistry; Z79.4 Long term (current) use of insulin; Z79.899 Other long term (current) drug therapy | CPT/HCPCS: 82947 ==

== ENCOUNTER 2025-08-23 09:47 | Outpatient (AMB) | payer OTHER, SELFPAY ==
--- NOTE | 2025-08-23 10:02 | A.OFFVIS_ITS ---
Vital Signs 08/23/25 10:03 Height 5 ft 7 in Weight 238 lb 1.588 oz BMI 37.3 BP 92/60 Blood Pressure Location Lt brachial Position Sitting Pulse 96 Pulse Source Pulse Oximeter Pulse Oximetry (%) 98 Oxygen Delivery Method Room Air Intake Visit Reasons: Obstructive sleep apnea Intake Note: pt is here for follow up and cpap is going great. American Sign Language Teacher Required: No Home Care And Home Health Aides Teacher: Home Care And Home Health Aides Teacher offered & declined Allergies No Known Allergies Allergy (Verified 08/23/25 10:21) Medication List - Last Reconciled 08/23/25 by Dheeraj Deutsch MD atorvastatin 40 mg PO DAILY 90 days betamethasone valerate 0.1% 1 appl topical BID PRN blood sugar diagnostic (Rempex PharmaceuticalsTouch Ultra Test strips) Use TID As directed to monitor blood glucose blood-glucose meter (ReaLyncuch Ultra2 Meter) Use TID As directed to monitor blood sugars. blood-glucose sensor (Glocal G7 Sensor device) Use TID As directed to monitor glucose. change q 10 days cholecalciferol (vitamin D3) 1,250 mcg PO QWEEK 90 days dapagliflozin propanediol (Farxiga) 10 mg PO DAILY glucagon 3 mg/actuation 3 mg intranasal ONCE PRN glucose (Dex4 Glucose) 16 grams (4 x 4 gram) PO Q15M PRN insulin aspart (niacinamide) 100 unit/mL (3 mL) (Fiasp FlexTouch U-100 Insulin) 10 units subcut BID lancets (OneTouch UltraSoft 2 Lancet) use daily As directed to monitor blood sugars lisinopril 20 mg PO DAILY omeprazole 40 mg PO DAILY 90 days pen needle, diabetic Use QID As directed semaglutide (Ozempic) 2 mg (0.75 mL) subcut QWEEK Tresiba FlexTouch U-200 (insulin degludec) 90 units (0.45 mL) subcut DAILY 30 days NS Do you need a note to return to daycare/school/sports/work: No HPI HPI Obstructive sleep apnea: Details: Aravind is 45 years old gentleman, moderately obese known to have obstructive sleep apnea. He is a very avid user of CPAP every night and sleeps good. Has no issues with the CPAP mask or CPAP machine . He is not in any particular weight management program but d diet and keeps himself active . 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 Review of Systems Const All systems reviewed & are unremarkable except as noted in HPI and below Eyes Reports no additional complaints ENT Reports dry mouth Card Reports no additional complaints Resp Reports no additional complaints GI Reports heartburn (BEING TREATED WITH OMEPRAZOLE) Reports no additional complaints Musc Reports no additional complaints Skin/Breast Reports system reviewed and no additional complaints, except as documented Neuro Reports no additional complaints Psych Reports no additional complaints Physical Exam Vital Signs: Last Vital Signs Pulse 96 08/23/25 10:03 BP 92/60 08/23/25 10:03 Pulse Ox 98 08/23/25 10:03 Oxygen Delivery Method Room Air 08/23/25 10:03 BMI result Body Mass Index 37.3 Const General: healthy appearing, comfortable, no acute distress, alert and awake Orientation/consciousness: patient oriented x3 HEENT Head: Yes normal to inspection General nose exam: No nasal polyps present and No nasal discharge present Face and sinus: Yes sinuses nontender Mouth: oropharynx abnormals (CROWDED AND VERY NARROW, MALLAMPATI CLASS 4) Throat: Yes posterior oropharynx normal Eyes General: appearance normal, both eyes and all related structures Neck Neck: Yes normal visual inspection, Yes no lymphadenopathy, Yes trachea midline, Yes no JVD and Yes other (NECK SIZE 17-1/2 INCH) Thyroid: Thyroid normal Chest Chest palpation & inspection: normal inspection of the chest, normal palpation of entire chest wall and no tenderness Resp Effort & Inspection: normal respiratory effort Auscultation: clear to auscultation bilaterally, no rhonchi and no wheezes Percussion: percussion normal Cardio Palpation: normal PMI Rate: regular rate Rhythm: regular rhythm Heart sounds: no gallops and no murmurs Peripheral pulses: Peripheral pulses 2+ throughout GI Palpation (GI): Soft to palpation, nontender, No hepatosplenomegaly present and no masses Auscultation: normal bowel sounds Back/Spine/Pelvis Thoracic/Lumbar Spine: thoracic and lumbar spine normal to inspection Skin General skin exam: no rashes or lesions noted Neuro General: patient oriented x3 and no focal motor deficits Cranial nerves: Yes CN's II-XII intact bilaterally Extrem General: Yes normal to inspection, No no joint enlargement (Both knees are tender and slightly swollen.), Yes no clubbing, cyanosis or edema and Yes no calf tenderness Psych Appearance: grossly normal and well kempt Speech and movement: Normal speech and movement present Results Reviewed Results Reviewed: COMPLIANCE REPORT FOR THE LAST 30 NIGHTS REVIEWED. HE HAS USED 30/30 NIGHTS,. 100% AVERAGE USAGE PER NIGHT 7 HOURS 21 MINUTES. RESIDUAL AHI ONLY 0.5 Assessment & Plan Assessment & Plan (1) CAITY (obstructive sleep apnea): Comment: Patient had severe obstructive sleep apnea with total sleep time AHI 38. It is well treated with the CPAP. Patient has been using CPAP very regularly. And sleeps good.7-8 HRS /night Compliance is excellent . Code(s): G47.33 - Obstructive sleep apnea (adult) (pediatric) Category: Medical Plan: Commended for good compliance. Advised to continue using the CPAP every night, regularly. (2) Obesity: Comment: HE IS MODERATELY OBESE No further weight loss, Currently he has been started on Ozempic injections . But has not lost much weight.. Code(s): E66.9 - Obesity, unspecified Category: Medical Plan: Advise that he has to watch his diet more carefully and also he needs to increase the daily exercise , by walking or by joining gym . Coding Level of Care Code Est Pt Level 3 (84666) Diagnoses CAITY (obstructive sleep apnea) G47.33 Obesity E66.9
[2025-08-23 10:03] VITALS: BP 92/60; PULSE 96; O2SAT 98; BMI 37.3
== END 2025-08-23 10:14 | disposition home or self-care (01) ==
LOC: HO.HPS 09:48
PROVIDERS: PCP Internal Medicine; Visit Provider Internal Medicine
DX: G47.33 Obstructive sleep apnea (adult) (pediatric) (principal); E66.9 Obesity, unspecified
CPT/HCPCS: 99213